=== PATIENT | female | born 1945 | race African-American/Black ===

== ENCOUNTER 2018-11-15 17:53 | Inpatient (IN) | payer MEDICARE ==
[2018-11-15 19:23] LABS: #Eosinphils 0.1 thou/uL (0.0-0.7); #Lymphocytes 1.4 thou/uL (1.20-3.40); #Monocytes 0.9 thou/uL (0.11-0.59); #Neutrophils 9.2 thou/uL (1.40-6.50); %Eosinophils 1.1 % (0.0-10.0); %Lymphocytes 12.1 % (21.0-51.0); %Monocytes 7.7 % (0.0-10.0); Hemoglobin 10.2 g/dL (12.0-16.0); Mean Corpuscular HGB CONC 32.4 g/dL (32.0-36.0); Mean Corpuscular Volume 77.3 fL (78.0-98.0); Platelet Count 241 thou/uL (130-400); RBC Distribution Width 15.4 % (11.5-14.5); Red Blood Cell (RBC) Count 4.06 mill/uL (4.20-5.40); White Blood Cell (WBC) Count 11.6 thou/uL (4.8-10.8)
[2018-11-15] MEDS ORDERED: Ketorolac Tromethamine 30 MG/ML VIAL ONE (19:31)
[2018-11-15] MEDS ORDERED: Fentanyl 100 MCG/2 ML VIAL ONE (19:41)
[2018-11-15 19:45] LABS: ALT (SGPT) Less than 7 U/L (8-55); AST (SGOT) 13 U/L (5-34); Albumin 3.4 g/dL (3.4-4.8); Alkaline Phosphatase 75 U/L (40-150); Anion Gap 16 mmol/L (10-20); BUN (Urea Nitrogen) 49 mg/dL (9.8-20.1); Bilirubin, Total 0.3 mg/dL (0.2-1.2); Calc. Creatinine Clearance 0 mL/min (70-130); Calcium 9.3 mg/dL (7.8-10.44); Carbon Dioxide 21 mmol/L (23-31); Chloride 105 mmol/L (98-107); Estimated GFR-MDRD 23; Globulin 3.4 g/dL (2.4-3.5); Glucose 83 mg/dL (83-110); Potassium 4.7 mmol/L (3.5-5.1); Protein, Total 6.8 g/dL (6.0-8.3); Sodium 137 mmol/L (136-145)
--- NOTE | 2018-11-15 20:41 | CT ---
EXAM: CHEST CT WITHOUT CONTRAST: 11/15/18 HISTORY: Decreased GFR. Left axillary abscess, x1.5 months. COMPARISON: None. FINDINGS: Limited evaluation of the mediastinum due to the lack of IV contrast. No mediastinal mass, lymphaden opathy or hematoma. Heart size is within normal limits. No significant pericardial fluid. There are c oronary calcifications. The visualized aorta is unremarkable. The visualized upper solid abdominal vi scera is unremarkable. Gallbladder is surgically absent. There are nonobstructing calculi in the lef t and right renal pelvis. There is asymmetric edema and skin thickening involving the left breast. There is a multilobulated mi xed attenuation mass in the left axilla measuring 13.4 x 10.0 cm. Attenuation coefficient is 26 Houns field units. Findings may represent an infectious or inflammatory process. However, given axillary di stribution, the possibility of a large metastatic lymph node must be raised in the setting of what ma y be inflammatory breast cancer. Multiple nodules are noted in the left breast parenchyma. Trachea and central bronchi are patent. Scattered emphysematous changes of the lung parenchyma. There is a nodule in the left upper lobe measuring 2.0 x 1.1 cm. There is a nodule in the right lower lobe measuring 1.3 x 1.8 cm. Additional subcentimeter nodules in the left and right lung apex are noted. All these nodules have a solid attenuation and are worrisome for metastases. No lytic or blastic lesions in the osseous structures. 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 Clinical correlat ion is essential. Consider general surgical consultation for punch biopsy of the patient's left breas t. An infectious or inflammatory process cannot be entirely excluded. Correlate clinically. POS: PPP
[2018-11-15] MEDS ORDERED: Piperacillin/Tazobactam 4.5 GM VIAL ONE (21:36)
[2018-11-15] MEDS ORDERED: Piperacillin/Tazobactam 4.5 GM in Sodium Chloride 0.9% 100 ML IVPB SCH (21:45)
[2018-11-15 23:31] VITALS: BMI 27.7
[2018-11-16] MEDS ORDERED: PROVENTIL INHALER 6.7 G (200 INHALATIONS) INH PRN (01:34)
[2018-11-16] MEDS ORDERED: FENTANYL TD SCH (01:45)
[2018-11-16] MEDS: Vancomycin HCl 500 MG in Sodium Chloride 0.9% 100 ML IVPB SCH (02:32)
[2018-11-16] MEDS: Sodium Chloride 0.9% 1,000 ML IV SCH ×3 (03:49→20:38)
[2018-11-16] MEDS: Piperacillin/Tazobactam 2.25 GM in Sodium Chloride 0.9% 100 ML IVPB SCH ×4 (03:49→21:41)
--- NOTE | 2018-11-16 04:01 | HP ---
CHIEF COMPLAINT: Left breast open wound. HISTORY OF PRESENT ILLNESS: This is a 73-year-old female patient with past medical history of hyperlipidemia, hypertension, chronic kidney disease stage 3, came to the hospital after having a nonhealing gradually worsening left breast wound with foul odor, with no clear triggers or alleviating factors. The patient reported that the wound started smaller 3 weeks ago and has been gradually getting worse. The patient has no significant diagnosis. REVIEW OF SYSTEMS: All systems were reviewed and negative except for the findings mentioned above. PAST MEDICAL HISTORY: Positive for the findings mentioned in the HPI. SURGICAL HISTORY: Back surgery x2, appendectomy, cholecystectomy. PSYCHIATRIC HISTORY: No previous psych history. SOCIAL HISTORY: No alcohol, no drugs. The patient smokes on a daily basis for more than 30 years. The patient smokes half a pack per day. ALLERGIES: NO KNOWN DRUG ALLERGIES. FAMILY HISTORY: Reviewed, noncontributory to current presentation. MEDICATIONS: 1. Vitamin D3. 2. Albuterol. 3. Potassium chloride. 4. Trazodone. 5. Fentanyl. 6. Bisoprolol. 7. Hydrochlorothiazide. 8. Omeprazole. 9. Lasix. 10. Lipitor. 11. Clonidine. PHYSICAL EXAMINATION: VITAL SIGNS: On presentation, blood pressure 105/66 with heart rate 88, respiratory rate was 17, temperature 99.8, pain was 10/10, oxygen saturation was 95% on room air. GENERAL APPEARANCE: The patient is alert, oriented, no acute distress. HEENT: Eyes, normal conjunctivae. Moist oral mucosa. Anicteric. NECK: No JVD. RESPIRATORY: Bilateral air entry. No rales. No wheezes. Symmetric expansion. CARDIOVASCULAR: Normal rate. Regular rhythm. No murmurs. No gallop or edema. ABDOMEN: Soft. Normal bowel sounds. MUSCULOSKELETAL: Baseline range of motion and strength. CHEST: The patient has left-sided open nonhealing wound that is being packed with dirty and drainage with foul odor. MUSCULOSKELETAL: Baseline range of motion and strength. SKIN: Warm and intact. No pallor. No rash. No redness except for the findings described above. The capillary perfusion seems to be intact. NEUROLOGIC: No evidence of any new focal weakness. Cranial nerves seem to be intact. PSYCH: The patient is in good mood. No anxiety. Optimal judgment. DIAGNOSTIC DATA: CT was done. Findings were worrisome for inflammatory breast cancer with lung parenchymal metastasis. Clinical correlation is essential. Consider general surgical consultation for punch biopsy of the patient's left breast. Infectious and inflammatory process cannot be entirely excluded. Correlate clinically. LABORATORY DATA: Labs are reviewed. The patient has a white count of 11.6, hemoglobin 10.2, MCV 77.3, platelet count 241. Chemistry; sodium 137, potassium 4.7, chloride 105, carbon dioxide 21, anion gap 16, BUN 49, creatinine 2.49, the previous creatinine was 1.5, GFR 23, glucose 83, lactic acid 1.4, calcium 9.3, total bilirubin 0.3. LFTs were negative, alkaline phosphatase 75. Serum total protein 6.9. ASSESSMENT AND PLAN: The patient will be placed in the hospital with following medical problems: 1. Possible inflammatory breast cancer given lesions seen in the left breast. This is a new diagnosis. The patient has not seen a doctor in the past. We will consult Oncology. The patient most likely will need to be followed with Oncology as outpatient for further management. 2. Acute on chronic kidney failure, unclear etiology. We will hydrate. 3. Possible infection of the breast cancer. The patient has been started on antibiotics. Follow cultures, We will consult Wound Care. We will follow cultures and adjust treatment as needed. 4. Hyperlipidemia. Low-cholesterol diet is advised. Reconcile home medications. 5. Controlled hypertension. Reconcile home medications. 6. Chronic kidney disease. Treatment as above. 7. Deep venous thrombosis prophylaxis. Job ID: [id number] MTDD
[2018-11-16] MEDS: Potassium Chloride 10 MEQ TAB PO SCH (08:15)
[2018-11-16] MEDS: Furosemide 20 MG TAB PO SCH (08:15)
[2018-11-16] MEDS: Atorvastatin Calcium 20 MG TAB PO SCH (08:16)
[2018-11-16] MEDS ORDERED: BISOPROLOL FUMARATE 10 MG PO SCH (09:00)
[2018-11-16] MEDS ORDERED: Vancomycin HCl 1 GM in Premix Bag 1 BAG IVPB SCH (09:00)
[2018-11-16] MEDS ORDERED: Lidocaine 1% w/Epinephrine 1:100K 20 ML VIAL ONE (09:28)
[2018-11-16] MEDS: Hydrochlorothiazide 25 MG TAB PO SCH (11:06)
[2018-11-16] MEDS: cloNIDine 0.1 MG TAB PO SCH ×2 (11:06→20:36)
[2018-11-16] MEDS: Bisoprolol Fumarate/HCTZ 5 mg/6.25 mg Tablet PO SCH (11:06)
--- NOTE | 2018-11-16 11:33 | PDOC.HOSPP ---
- Subjective Encounter Date: 11/16/18 Encounter Time: 11:32 Subjective: called by RN for restarting the pain medications, the patient has been admitted by the hospitalist namita today - Objective Vital Signs & Weight: Vital Signs (12 hours) Temp Pulse Resp BP Pulse Ox 11/16/18 07:20 98.4 F 80 18 103/61 96 11/16/18 04:34 98.3 F 76 20 113/72 92 L Weight Weight 161 lb 7 oz Result Diagrams: 11/15/18 19:12 11/15/18 19:12 ROS - Medication Medications: Active Medications Generic Name Dose Route Start Last Admin Trade Name Freq PRN Reason Stop Dose Admin Atorvastatin Calcium 20 mg 11/16/18 09:00 11/16/18 08:16 Lipitor PO 20 mg QAM MARGOTH Administration Bisoprolol Fumarate/HCTZ 1 tab 11/16/18 09:00 11/16/18 11:06 Ziac 5-6.25 PO Not Given DAILY MARGOTH Cholecalciferol 1,000 units 11/16/18 09:00 11/16/18 08:14 Vitamin D3 PO 1,000 units DAILY MARGOTH Administration Clonidine 0.1 mg 11/16/18 09:00 11/16/18 11:06 Catapres PO Not Given BID MARGOTH Furosemide 20 mg 11/16/18 09:00 11/16/18 08:15 Lasix PO 20 mg DAILY MARGOTH Administration Hydrochlorothiazide 12.5 mg 11/16/18 09:00 11/16/18 11:06 Hydrochlorothiazide PO Not Given DAILY MARGOTH Piperacillin Sod/Tazobactam 100 mls @ 200 mls/hr 11/16/18 04:00 11/16/18 08: 18 Sod 2.25 gm/ Sodium Chloride IVPB 100 mls 0400,1000,1600,2200 MARGOTH Administration Vancomycin HCl 500 mg/ Sodium 100 mls @ 100 mls/hr 11/16/18 03:00 11/16/18 02 :32 Chloride IVPB 100 mls 0300 MARGOTH Administration Sodium Chloride 1,000 mls @ 75 mls/hr 11/16/18 03:00 11/16/18 03:49 Normal Saline 0.9% IV 1,000 mls .[id number] MARGOTH Administration Pantoprazole Sodium 40 mg 11/16/18 09:00 08/24/19 08:15 Protonix PO 40 mg DAILY MARGOTH Administration Potassium Chloride 10 meq 11/16/18 09:00 11/16/18 08:15 Klor-Con 10 PO 10 meq DAILY MARGOTH Administration - Exam NAD, awake alert, ill appearing Neck: supple, symmetric, no JVD, no thyromegaly, no lymphadenopathy, no carotid bruit, JVD Heart: RRR, no murmur, no gallops, no rubs, normal peripheral pulses, irregular , diminshed peripheral pulses, murmur present, II/IV, III/IV Gastrointestinal: soft, non-tender, non-distended, normal bowel sounds, no palpable masses, no hepatomegaly, no splenomegaly, no bruit, no guarding, no rigidity, tender to palpation, distended, diminished bowl sounds, voluntary guarding Extremities: no cyanosis, no clubbing, no edema, 1+ LE edema, 2+ LE edema, clubbing Skin: normal turgor, no lesions, no rashes, tenting Neurological: CN's grossly intact, normal sensation to touch, no weakness, no focal deficits, no new deficit, facial droop, hemiplegia, speech deficit, vision deficit Musculoskeletal: normal tone, normal strength, no muscle wasting, generalized weakness, diffuse muscle atrophy Hosp A/P (1) Breast abscess of female Code(s): N61.1 - ABSCESS OF THE BREAST AND NIPPLE Status: Acute - Plan will restart the pain medication,
--- NOTE | 2018-11-16 12:45 | CON ---
DATE OF CONSULTATION: REASON FOR CONSULTATION: Suspected left breast cancer. HISTORY OF PRESENT ILLNESS: A 73-year-old female with CKD, hypertension, hyperlipidemia, presenting to the hospital with nonhealing left breast wound. She states that this wound started approximately six weeks ago as a small bump and has progressively gotten worse. Has not been healing and has a foul odor. She states that before the six weeks, her breast was completely normal. She complains of pain in the breast, under the arm, and left upper extremity swelling. She had fever and chills a few weeks ago, but this resolved and she denies any shortness of breath, cough, or unintentional weight loss. She has never had a mammogram in the past. She has been evaluated by Dr. Augustine and had a biopsy done today. She has one child and had her daughter at 17 years of age. She thinks she had menopause around age 48. She smokes 3 to 4 cigarettes a day for many years. Does not drink any alcohol. REVIEW OF SYSTEMS: Ten-point review of systems negative except as per HPI. PAST MEDICAL HISTORY: CKD, hypertension, and hyperlipidemia. SURGICAL HISTORY: Cholecystectomy, appendectomy, and back surgery. PSYCHIATRIC HISTORY: None. SOCIAL HISTORY: Three to four cigarettes per day for multiple years. No alcohol. ALLERGIES: NO KNOWN DRUG ALLERGIES. CURRENT MEDICATIONS: Reviewed by me. PHYSICAL EXAMINATION: VITAL SIGNS: Temperature 98.4, pulse 80, respirations 18, saturating 96% on room air, and blood pressure 103/61. GENERAL APPEARANCE: The patient is lying in bed, in no acute distress. HEENT: Normocephalic and atraumatic. NECK: Supple. RESPIRATIONS: Clear to auscultation. CARDIOVASCULAR: Regular rhythm and rate. ABDOMEN: Soft and nondistended. NEUROLOGIC: Cranial nerves 2 through 12 are grossly intact. PSYCHIATRIC: Awake, alert, and oriented x3. EXTREMITIES: Left upper extremity swelling. Arm appears about twice the size of her right arm. BREASTS: Left breast is large and pendulous, and in the left upper outer quadrant, there are a couple of nonhealing wounds and a very large 10 cm plus palpable mass that is fixed. The wounds are malodorous. LABORATORY DATA: White blood cells 11.6, hemoglobin 10.2, platelets 241. Sodium 137, potassium 4.7, BUN 49, creatinine 2.49. IMAGING DATA: CT of the chest without contrast dated November 15, 2018 shows asymmetric edema and skin thickening involving the left breast with multilobulated mixed attenuation mass in the left axilla measuring 13.4 x 10.0 cm. Scattered emphysematous changes of the lung with a left upper lobe nodule, 2 x 1.1 cm and right lower lobe nodule, 1.3 x 1.8 cm with additional subcentimeter nodules in the left and right lung apex, all of which have solid attenuation and are worrisome for metastases. 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 She has multiple lung nodules, which are very suspicious for metastatic disease. The patient has been biopsied by Dr. Augustine and is planned for a MediPort on Sunday. Ideally, she needs further imaging to complete her staging. However, given her chronic kidney disease, she is unable to receive contrast, so we would plan to get a PET scan as soon as she is discharged from the hospital. I suspect she has triple negative breast cancer given the aggressive nature of the disease and this is also more common in Americans. Await final pathology to determine cancer type treatment and plan treatment and further imaging to be done as an outpatient. We will go ahead and check a bone scan while she is inpatient. I agree with Wound Care consult to help manage the left breast. Thank you for this consult. Job ID: [id number]
[2018-11-16] MEDS: traZODone HCl 50 MG TAB PO SCH (20:36)
[2018-11-16] MEDS ORDERED: HYDROcodone/Acetaminophen 5/325 mg Tablet PO SCH (22:00)
[2018-11-17] MEDS ORDERED: HYDROcodone/Acetaminophen 5/325 mg Tablet PO PRN (00:54)
[2018-11-17] MEDS: Vancomycin HCl 500 MG in Sodium Chloride 0.9% 100 ML IVPB SCH (02:19)
[2018-11-17] MEDS: Piperacillin/Tazobactam 2.25 GM in Sodium Chloride 0.9% 100 ML IVPB SCH ×4 (03:28→20:45)
[2018-11-17] MEDS: Sodium Chloride 0.9% 1,000 ML IV SCH (05:12)
[2018-11-17] MEDS: Atorvastatin Calcium 20 MG TAB PO SCH (08:36)
[2018-11-17] MEDS: Potassium Chloride 10 MEQ TAB PO SCH (08:36)
[2018-11-17] MEDS: Furosemide 20 MG TAB PO SCH (08:37)
[2018-11-17] MEDS: Hydrochlorothiazide 25 MG TAB PO SCH (08:37)
[2018-11-17] MEDS: cloNIDine 0.1 MG TAB PO SCH (08:38)
[2018-11-17] MEDS: HYDROcodone/Acetaminophen 5/325 mg Tablet PO PRN ×2 (08:41→17:58)
--- NOTE | 2018-11-17 12:18 | CON ---
DATE OF CONSULTATION: REASON FOR CONSULT: Left breast cancer. HISTORY OF PRESENT ILLNESS: Ms. Mckeon is a 73-year-old woman with a 6-week history of a lump on her left breast. She states that this got progressively larger, and her breast became more swollen. She developed a sore over the skin of her left axilla which has become larger and has a bad odor. She has been trying to take care of this herself at home and has been unable to manage it, so she came to the hospital and was admitted. She has never had a mammogram before and cannot remember the last time she had a clinical breast exam before this admission. CT of the chest showed a large hypoechoic heterogeneous mass in the left axilla. She has asymmetric edema and skin thickening of the left breast and 2 nodules in her lung, one in the left upper lobe and one in the right lower lobe, as well as smaller subcentimeter nodules bilaterally . She does not have any lytic or blastic lesions on the evaluated bones. PAST MEDICAL HISTORY: 1. Chronic kidney disease. 2. Hypertension. 3. Hyperlipidemia. PAST SURGERY HISTORY: 1. Open cholecystectomy. 2. Open appendectomy. 3. Back surgery. No past medical history of abnormal breast exam or biopsy. FAMILY HISTORY: Negative for breast or ovarian cancer. SOCIAL HISTORY: She smokes a few cigarettes a day. Does not drink or use illicit drugs. She denies any known drug allergies. MEDICATIONS: Outpatient medications include: 1. Albuterol inhaler. 2. Atorvastatin. 3. Bisoprolol/hydrochlorothiazide. 4. Vitamin D3. 5. Clonidine. 6. Fentanyl patch. 7. Lasix. 8. Hydrochlorothiazide. 9. Omeprazole. 10. Potassium. 11. Trazodone. These medications have been continued as an inpatient, and she has also been started on Zosyn and vancomycin sliding scale. PHYSICAL EXAMINATION: VITAL SIGNS: The patient has been afebrile with normal vital signs. GENERAL: A healthy-appearing woman, in no acute distress. She is not flushed or toxic in appearance. She is not jaundiced or icteric. HEENT: Unremarkable. NECK: Supple without lymphadenopathy or thyroid nodules. No supraclavicular lymphadenopathy either. HEART: Regular in its rate and rhythm. LUNGS: Clear to auscultation bilaterally. BREASTS: Her right breast is without dominant mass, skin changes, nipple discharge, or palpable axillary lymphadenopathy. The right breast is markedly abnormal, swollen with thickened breast and peau d'orange areas of the skin. There is no erythema, however, she has a large hard mass which is immobile in the left axilla with multiple metastatic nodules in the skin and breakdown of the skin overlying the mass in the axilla. There is necrotic sloughing tissue in this area. On bedside ultrasound, the central part of the mass does not appear to have any flow and is almost anechoic and may represent necrotic or even liquified tumor. There is increased blood flow in the periphery of the mass, however. She has some edema of her left arm consistent with lymphedema. Her right arm is normal. ABDOMEN: Soft, nontender, and nondistended. She does not have hepatosplenomegaly. No palpable masses or hernias. Healed surgical incision. EXTREMITIES: Warm and well perfused. No edema except of the left arm. NEUROLOGIC: No focal deficits. PSYCHIATRIC: Alert, oriented, and appropriate. LABORATORY DATA: White count is mildly elevated at 11, hematocrit 31, and platelets are 241. Electrolytes are unremarkable except for an elevated BUN and creatinine of 49 and 2.49 consistent with the patient's history of chronic renal insufficiency. LFTs are abnormally elevated. IMAGING STUDIES: As per HPI. ASSESSMENT AND PLAN: Neglected breast cancer of the left breast. I suspect this has been ongoing for longer than reported 6-week time frame, that the patient does not do breast self-exam or see a doctor for breast care. I recommended a punch biopsy of the skin and core biopsy of the underlying mass, and the patient was agreeable for this. It was performed as detailed under separate cover. She tolerated the procedure well, and the specimens were sent to pathology for permanent histopathology. Once the pathology report is back, she will be recommended for the appropriate chemotherapy. The patient was initially entirely unwilling to consider chemotherapy. She states that her has throat cancer and the chemotherapy was very hard on him. I explained that different types of chemotherapy are used for different types of cancer, and that many chemotherapeutic regimens for breast cancer are well tolerated. I urged her to discuss her concerns with an oncologist and try to develop a treatment plan that is acceptable to her. I explained that on imaging, it looks like the cancer has likely spread to her lungs. I am unsure if the lesion in her axilla is an axillary tail primary lesion or multiple enlarged lymph nodes. On ultrasound, there is more of an appearance of multiple adjacent large nodules which would be consistent with kalli disease, but we will have to wait for the pathology to come back. The patient seems to understand her situation and is willing to speak with the oncologist about treatment options. I explained that currently, she is not a candidate for surgery due to the advanced disease and lack of normal healthy tissues to heal. All of her questions were answered. Job ID: [id number]
--- NOTE | 2018-11-17 12:35 | PDOC.HOSPP ---
- Subjective Encounter Date: 11/17/18 Encounter Time: 12:33 Subjective: Patient seen and examined. - Objective Vital Signs & Weight: Vital Signs (12 hours) Temp Pulse Resp BP Pulse Ox 11/17/18 08:53 98.3 F 83 18 109/65 96 Weight Admit Weight 161 lb 7 oz Weight 161 lb 7 oz I&O: 11/16/18 11/17/18 11/18/18 06:59 06:59 06:59 Intake Total 2250 Balance 2250 Result Diagrams: 11/15/18 19:12 11/15/18 19:12 ROS - Medication Medications: Active Medications Generic Name Dose Route Start Last Admin Trade Name Freq PRN Reason Stop Dose Admin Hydrocodone Bitart/Acetaminophen 2 tab 11/17/18 00:54 11/17/18 08:41 Henderson 5/325 PO 2 tab Q6H PRN Administration Moderate to Severe Pain (6-10) Atorvastatin Calcium 20 mg 11/16/18 09:00 11/17/18 08:36 Lipitor PO 20 mg QAM MARGOTH Administration Cholecalciferol 1,000 units 11/16/18 09:00 11/17/18 08:36 Vitamin D3 PO 1,000 units DAILY MARGOTH Administration Fentanyl 25 mcg 11/16/18 14:00 11/16/18 12:51 Duragesic TD 25 mcg Q3D MARGOTH Administration Piperacillin Sod/Tazobactam 100 mls @ 200 mls/hr 11/16/18 04:00 11/17/18 08: 38 Sod 2.25 gm/ Sodium Chloride IVPB 100 mls 0400,1000,1600,2200 MARGOTH Administration Vancomycin HCl 500 mg/ Sodium 100 mls @ 100 mls/hr 11/16/18 03:00 11/17/18 02 :19 Chloride IVPB 100 mls 0300 MARGOTH Administration Pantoprazole Sodium 40 mg 11/16/18 09:00 11/17/18 08:37 Protonix PO 40 mg DAILY MARGOTH Administration Potassium Chloride 10 meq 11/16/18 09:00 11/17/18 08:36 Klor-Con 10 PO 10 meq DAILY MARGOTH Administration Sodium Chloride 10 ml 11/16/18 21:00 11/17/18 10:07 Flush - Normal Saline IVF Not Given Q12HR MARGOTH Trazodone HCl 50 mg 11/16/18 21:00 11/16/18 20:36 Desyrel PO 50 mg HS MARGOTH Administration - Exam NAD, awake alert Eye: PERRL, anicteric sclera ENT: normocephalic atraumatic, no oropharyngeal lesions Neck: supple, symmetric, no JVD, no thyromegaly Heart: RRR, no murmur, no gallops, no rubs Respiratory: CTAB, no wheezes, no rales, no ronchi Gastrointestinal: soft, non-tender, non-distended, normal bowel sounds Extremities: no cyanosis, no clubbing, 2+ LE edema Hosp A/P (1) Breast neoplasm Status: Acute (2) CKD (chronic kidney disease) stage 3, GFR 30-59 ml/min Code(s): N18.3 - CHRONIC KIDNEY DISEASE, STAGE 3 (MODERATE) Status: Acute (3) Edema Code(s): R60.9 - EDEMA, UNSPECIFIED Status: Acute (4) Anemia Code(s): D64.9 - ANEMIA, UNSPECIFIED Status: Acute (5) Hyperlipidemia Code(s): E78.5 - HYPERLIPIDEMIA, UNSPECIFIED Status: Acute - Plan - cont abx - biopsy for tmrw - NPO past midnight for possbile med port placement in AM? - pain control - DC beta fabián, HCTZ - DC IVFs as patient has significnat lower extremity edema - will cont with lasix 40mg po daily for now - consult nephrology - hold clonidine if SBP < 120mmHg - case and plan d/w patient at [facility], daughter at bedside, they understand and agree with this plan.
[2018-11-17] MEDS: Bisoprolol Fumarate/HCTZ 5 mg/6.25 mg Tablet PO SCH (13:05)
[2018-11-17 14:55] LABS: Albumin 3.1 g/dL (3.4-4.8); Anion Gap 15 mmol/L (10-20); BUN (Urea Nitrogen) 33 mg/dL (9.8-20.1); BUN/Creatinine Ratio 17.01; Calc. Creatinine Clearance 29 mL/min (70-130); Calcium 8.5 mg/dL (7.8-10.44); Carbon Dioxide 19 mmol/L (23-31); Chloride 109 mmol/L (98-107); Estimated GFR-MDRD 30; Glucose 120 mg/dL (83-110); Phosphorus 3.5 mg/dL (2.3-4.7); Potassium 4.3 mmol/L (3.5-5.1); Sodium 139 mmol/L (136-145)
[2018-11-17 15:00] LABS: Bilirubin Negative (Negative); Blood, Urine Negative (Negative); Clarity Clear (Clear); Glucose, Urine (Dipstick) Normal (Negative); Leukocyte 75 Leu/uL (Negative); Nitrite Negative (Negative); Protein, Urine (Dipstick) Negative (Neg-Trace); RBC/HPF 0-3 HPF (0-3); Squamous Epithelial 0-3 HPF (0-3); Urobilinogen Normal mg/dL (Less than 2)
[2018-11-17 15:19] LABS: Bacteria/HPF Rare-Few HPF (None Seen); Creatinine, Urine 42.98 mg/dL (47-110); Protein, Urine Random Quant Less than 10 mg/dL (1-14); Sodium, Urine 105 mmol/L (Not Available); Urea Nitrogen, Random Urine 244 mg/dl
[2018-11-17 15:21] LABS: Urine Culture Reflex Yes Yes
--- NOTE | 2018-11-17 15:31 | CON ---
DATE OF CONSULTATION: 11/17/2018 REASON FOR CONSULTATION: Acute kidney injury on chronic kidney disease 3. REQUESTING PHYSICIAN: Gene Mohamud DO. HISTORY OF PRESENT ILLNESS: A 73-year-old female with known history of hypertension and CKD, admitted for evaluation and treatment of nonhealing left breast ulcer with foul odor. The patient reportedly developed some nodules on the left lateral breast about 6 weeks ago which later broke down following an ulcer with foul smelling odor which is nonhealing. The patient has seen a PCP and was asked to come to the hospital. Nephrology consult was requested due to elevated creatinine. The patient admitted to bilateral leg edema, for which she is taking some diuretics. She denied dysuria, hematuria, nausea, vomiting, chest pain, palpitations, headache, dizziness, focal weakness, or change in bowel habit. PAST MEDICAL HISTORY: 1. Hypertension. 2. Hyperlipidemia. 3. Chronic bilateral leg edema. 4. CKD stage 3. PAST SURGICAL HISTORY: 1. Cholecystectomy. 2. Appendectomy. 3. Back surgery x2. FAMILY HISTORY: Noncontributory. The patient has no history of breast or ovarian cancer in family. SOCIAL HISTORY: The patient lives with daughter. Smokes 3 cigarettes per day for a long period. Denied alcohol or recreational drug use. ALLERGIES: NO KNOWN DRUG ALLERGIES REPORTED. HOME MEDICATIONS: 1. Albuterol HFA 1 inhalation q.4 p.r.n. for shortness of breath. 2. Lipitor 20 mg daily. 3. Bisoprolol fumarate 10 mg p.o. daily. 4. Bisoprolol/hydrochlorothiazide 5/6.25 one tablet p.o. daily. 5. Cholecalciferol 1000 units p.o. daily. 6. Clonidine 0.1 mg p.o. b.i.d. 7. Fentanyl patch 25 mcg transdermal patch every 3 days. 8. Lasix 20 mg p.o. daily. 9. Hydrochlorothiazide 12.5 mg p.o. daily. 10. Omeprazole 20 mg p.o. daily. 11. Potassium chloride 10 mEq p.o. daily. 12. Trazodone 50 mg p.o. daily at bedtime. REVIEW OF SYSTEMS: Twelve-point review of system performed was negative other than pertinent positives and negatives included in the History of Present Illness. PHYSICAL EXAMINATION: VITAL SIGNS: Temperature 98.3, pulse 83, respiratory rate 18, SpO2 of 96% on room air, blood pressure is 109/65. GENERAL: Elderly female, in no obvious distress. Afebrile. Anicteric. Acyanotic. HEENT: Normocephalic, atraumatic. Oral mucosa is moist. NECK: Supple with good range of motion. No obvious masses appreciated. CARDIOVASCULAR: Regular rhythm and rate with normal heart sounds 1 and 2. No obvious murmur was appreciated. RESPIRATORY: Fair air entry bilateral with few bibasilar crackles posteriorly. No obvious rhonchi or use of accessory muscles appreciated. CHEST: Left breast is enlarged and firm, especially at the left upper lateral where there are multiple nodules with some skin breakdown. Large ulcer around the armpit with necrotic tissue and foul odor noted. GI: Full, soft, nontender, nondistended with normal bowel sounds. EXTREMITIES: Left upper limb is globally swollen. Bilateral leg edema noted. No erythema was appreciated. HEAD OF ENGLISH: Conscious, alert, oriented x3 with appropriate mental status. Cranial nerves 2 through 12 are grossly intact. The patient moves all extremities. DIAGNOSTIC DATA: On presentation on November 15, the patient had CBC showing WBC count of 11.6, hemoglobin of 10.2, MCV of 77.3, platelet count of 241. CMP on November 15 showed sodium 137, potassium 4.7, chloride 105, CO2 of 21, BUN 49, creatinine 2.49, glucose 83, calcium 9.3, total bilirubin 0.3. AST 13, ALT less than 7, alkaline phosphatase 75, total protein 6.8, albumin 3.4, globulin 3.4. Review of medical records showed that the patient had creatinine of 1.50 on January 24, 2017, and there have been no available records between then until now. 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 Asymmetric edema and skin thickening involving the left breast as well as multilobulated mixed attenuation mass in the left axilla measuring 13 x 10 cm were also noted. Trachea and central bronchi are noted to be patent with some scattered emphysematous changes of the lung parenchyma. Also, there was a nodule in the left upper lobe measuring 2 x 1.0 cm as well as a node in the right lower lobe measuring 1.3 x 1.8. There was no lytic or blastic lesion in the osseous structures. ASSESSMENT: 1. Renal insufficiency: Acute kidney injury on chronic kidney disease 3 versus chronic kidney disease 3 with progression. The patient had creatinine of 1.5 in 2017, but there has been no available data since then. Creatinine on presentation was 2.49. Of note, the patient has been on diuretics for bilateral leg edema, was started on IV fluid, but there has been no repeat renal function. 2. Presumed metastatic breast cancer. 3. Left upper lateral breast/axillary malodorous wound. This is thought to be due to fungating mass with necrosis. 4. Lung metastasis. 5. Left upper limb edema: Most likely due to lymphedema from obstruction related to axillary lymphadenopathy. Deep venous thrombosis is a concern. 6. Bilateral leg edema: Etiology is unclear. Differentials include diastolic heart failure, venous insufficiency, as well as deep vein thrombosis giving history of metastatic disease. 7. Hypertension: Blood pressure is currently on the soft side. 8. Hyperlipidemia. 9. Chronic obstructive pulmonary disease with no acute exacerbation: CT showed emphysematous changes and the patient is a chronic smoker. 10. Tobacco abuse disorder. PLAN: 1. We will discontinue clonidine and diuretics given soft blood pressure. 2. We will continue gentle IV hydration with normal saline at 50 mL/h. 3. We will get repeat renal function as well as urinalysis with urine electrolytes and protein. 4. We will also get renal ultrasound. 5. We will also get Doppler of left upper extremities to rule in or rule out DVT. 6. We will, however, restart bisoprolol since the patient is on chronic beta fabián and some surgical intervention is contemplated. 7. We will also get medical record from the primary care physician to see if there has been any BMP since 2017. 8. Further recommendation to follow depending on review of other diagnostic test and hospital course. Many thanks for involving us in the care of this patient. We will follow along with you. Job ID: [id number]
--- NOTE | 2018-11-17 16:16 | ULT ---
RENAL ULTRASOUND: HISTORY: Acute kidney insufficiency upon chronic kidney disease. COMPARISON: None. TECHNIQUE: Sagittal and transverse imaging of the kidneys is performed. FINDINGS: Right kidney: Mild renal cortical thinning. No hydronephrosis. The right kidney measures 5.6 x 4.2 x 7.4 cm. Left kidney: No hydronephrosis. Normal cortical echotexture. Mild renal cortical thinning. The le ft kidney measures 5 x 3.9 x 7.4 cm. The urinary bladder is unremarkable. IMPRESSION: No hydronephrosis. POS: OFF
--- NOTE | 2018-11-17 16:25 | ULT ---
LEFT LOWER EXTREMITY VENOUS ULTRASOUND WITH DOPPLER: HISTORY: Evaluate for thrombus. Left arm swelling. COMPARISON: None. TECHNIQUE: Forte-scale, color-flow, and Doppler imaging with spectral wave-form analysis was performed of the lef t upper extremity venous system. FINDINGS: The left internal jugular vein is patent. The left subclavian vein is patent. The left axillary vein compresses and is patent. The brachial vein does not appear to compress. The re does appear to be some flow present, suggesting partial thrombosis. There is partial compression of the cephalic vein, along with partial flow. Partial thrombosis is rebolledo spected. The radial vein appears to be patent. There is lack of compressibility and lack of flow in the ulnar vein, suggesting complete thrombosis. Soft tissue swelling is noted. IMPRESSION: 1. Partial and complete thrombosis involving the left upper extremity venous system, as described ab ove. 2. Associated soft tissue swelling. POS: OFF
--- NOTE | 2018-11-17 18:58 | PDOC.GSPN ---
Surgery Progress Note: Subj - Subjective Narrative: Patient with neglected breast cancer and large fungating mass. Wound care has placed a dressing which can be left in place for 3 days. This should help the patient's in terms of managing her wound. I will ask case management to help her arrange for wound care as an outpatient. Patient has had no pain or drainage from her biopsy site. We're waiting pathology but I'm hoping it will be back tomorrow. I would like to place a Mediport so she can get started on chemotherapy as soon as possible. I discussed the inherent risks of Mediport placement and patient would like to proceed. She had a left upper extremity ultrasound today which did show some partial thrombosis of the deep venous brachial and ulnar system although the axillary vein was patent and compressible. She may need chronic anticoagulation for this so it would be good to get her Mediport in before this is started. Surgery Progress Note: Obj - Vital signs Vital signs: Vital Signs - Most Recent Temp Pulse Resp BP Pulse Ox 98.3 F 83 18 109/65 96 11/17/18 08:53 11/17/18 08:53 11/17/18 08:53 11/17/18 08:53 11/17/18 08:53 Surgery Progress Note: Results - Labs Result Diagrams: 11/15/18 19:12 11/17/18 14:29 Lab results: Laboratory Results - last 24 hr 11/17/18 11/17/18 11/17/18 14:29 14:39 14:39 Sodium 139 Potassium 4.3 Chloride 109 H Carbon Dioxide 19 L Anion Gap 15 BUN 33 H Creatinine 1.94 H Estimated GFR (MDRD) 30 BUN/Creatinine Ratio 17.01 Glucose 120 H Calcium 8.5 Phosphorus 3.5 Albumin 3.1 L Urine Color Colorless Urine Clarity Clear Urine pH 5.0 Ur Specific [place] 1.010 Urine Protein Negative Urine Glucose (UA) Normal Urine Ketones Negative Urine Blood Negative Urine Nitrite Negative Urine Bilirubin Negative Urine Urobilinogen Normal Ur Leukocyte Esterase 75 A Urine RBC 0-3 Urine WBC 7-10 A Ur Squamous Epith Cells 0-3 Urine Bacteria Rare-Few Hyaline Casts 0-3 Urine Culture Reflexed Yes A U Random Total Protein Less than 10 Urine Creatinine 42.98 L Urine Sodium 105 Urine Urea Nitrogen 244
[2018-11-17] MEDS: traZODone HCl 50 MG TAB PO SCH (20:44)
[2018-11-17] MEDS: Sodium Bicarbonate Tab 325 MG TAB PO SCH (20:44)
[2018-11-17] MEDS ORDERED: cloNIDine 0.1 MG TAB PO SCH (21:00)
[2018-11-18] MEDS: Vancomycin HCl 500 MG in Sodium Chloride 0.9% 100 ML IVPB SCH (03:08)
[2018-11-18] MEDS: Piperacillin/Tazobactam 2.25 GM in Sodium Chloride 0.9% 100 ML IVPB SCH ×4 (03:09→20:32)
[2018-11-18 03:28] LABS: Albumin 2.8 g/dL (3.4-4.8); Anion Gap 15 mmol/L (10-20); BUN (Urea Nitrogen) 30 mg/dL (9.8-20.1); BUN/Creatinine Ratio 17.05; Calc. Creatinine Clearance 32 mL/min (70-130); Calcium 8.3 mg/dL (7.8-10.44); Carbon Dioxide 18 mmol/L (23-31); Chloride 110 mmol/L (98-107); Estimated GFR-MDRD 34; Glucose 101 mg/dL (83-110); Phosphorus 3.8 mg/dL (2.3-4.7); Potassium 4.1 mmol/L (3.5-5.1); Sodium 139 mmol/L (136-145)
[2018-11-18] MEDS ORDERED: Vancomycin HCl 500 MG in Sodium Chloride 0.9% 100 ML IVPB SCH (04:45)
[2018-11-18] MEDS: Sodium Bicarbonate Tab 325 MG TAB PO SCH ×2 (08:29→20:30)
[2018-11-18] MEDS: Bisoprolol Fumarate 5 MG TAB PO SCH (08:29)
[2018-11-18] MEDS: Potassium Chloride 10 MEQ TAB PO SCH (08:30)
[2018-11-18] MEDS: Atorvastatin Calcium 20 MG TAB PO SCH (08:30)
[2018-11-18] MEDS ORDERED: Ondansetron PF 4 MG/2 ML Vial IVP PRN (08:50)
[2018-11-18] MEDS ORDERED: Furosemide 40 MG TAB PO SCH (09:00)
[2018-11-18] MEDS ORDERED: Ondansetron PF 4 MG/2 ML Vial IVP SCH (09:00)
--- NOTE | 2018-11-18 12:47 | NM ---
WHOLE BODY BONE SCAN: HISTORY: Metastatic breast cancer. RADIOPHARMACEUTICAL: 33 mCi Technetium 99m-MDP administered intravenously. FINDINGS: Increased uptake in the lower lumbar spine is consistent with postop change. Increased uptake in the shoulders, acromioclavicular joints, wrists, knees, ankles, and feet are consistent with degenerativ e changes. No other abnormalities or tracer localization are seen to suggest metastatic disease. Tr acer excretion through the kidneys is within normal limits. IMPRESSION: No scintigraphic evidence of osseous metastatic disease. POS: TPC
--- NOTE | 2018-11-18 16:24 | PDOC.GSPN ---
Surgery Progress Note: Subj - Subjective Narrative: Patient is feeling all right. Pathology has stated that her result will not be back until tomorrow so I have postponed her Mediport until tomorrow afternoon. She can have clear liquids after midnight and then nothing by mouth after about 10 AM. Surgery Progress Note: Obj - Vital signs Vital signs: Vital Signs - Most Recent Temp Pulse Resp BP Pulse Ox 98.8 F 68 16 118/67 97 11/18/18 16:12 11/18/18 16:12 11/18/18 16:12 11/18/18 16:12 11/18/18 16:12 Surgery Progress Note: Results - Labs Result Diagrams: 11/15/18 19:12 11/18/18 02:54
[2018-11-18] MEDS: HYDROcodone/Acetaminophen 5/325 mg Tablet PO PRN (16:43)
--- NOTE | 2018-11-18 17:25 | PDOC.HOSPP ---
- Subjective Encounter Date: 11/18/18 Encounter Time: 17:15 Subjective: f/u for inflammatory breast CA with cellulitis and LUE venous thrombosis with edema. Plan for Mediport placement in am. Currently receiving Zosyn/Vancomycin. Had nausea earlier today but improved currently. - Objective Vital Signs & Weight: Vital Signs (12 hours) Temp Pulse Resp BP Pulse Ox 11/18/18 16:12 98.8 F 68 16 118/67 97 11/18/18 10:50 98.3 F 86 16 130/66 96 11/18/18 08:00 95 11/18/18 07:21 98.3 F 88 18 124/73 95 Weight Admit Weight 161 lb 7 oz Weight 161 lb 7 oz I&O: 11/17/18 11/18/18 11/19/18 06:59 06:59 06:59 Intake Total 2250 1100 1100 Balance 2250 1100 1100 Result Diagrams: 11/15/18 19:12 11/18/18 02:54 Additional Labs: Microbiology 11/17/18 15:21 Urine clean catch Urine Culture - Preliminary NO GROWTH AT 24 HOURS 11/15/18 19:12 Venous blood - Left Arm Blood Culture - Preliminary NO GROWTH AT 48 HOURS 11/15/18 19:06 Venous blood - Right Arm Blood Culture - Preliminary NO GROWTH AT 48 HOURS Laboratory Tests 11/15/18 11/17/18 11/18/18 19:12 14:29 02:54 Creatinine 2.49 H 1.94 H Vancomycin Trough 7.0 Radiology Reviewed by me: Yes (LUE sono - partial thrombosis ulna, brachial and cephalic veins) ROS - Medication Medications: Active Medications Generic Name Dose Route Start Last Admin Trade Name Freq PRN Reason Stop Dose Admin Hydrocodone Bitart/Acetaminophen 2 tab 11/17/18 00:54 11/18/18 16:43 [place] 5/325 PO 2 tab Q6H PRN Administration Moderate to Severe Pain (6-10) Atorvastatin Calcium 20 mg 11/16/18 09:00 11/18/18 08:30 Lipitor PO 20 mg QAM MARGOTH Administration Bisoprolol Fumarate 5 mg 11/18/18 09:00 11/18/18 08:29 Zebeta PO 5 mg DAILY MARGOTH Administration Cholecalciferol 1,000 units 11/16/18 09:00 11/18/18 08:29 Vitamin D3 PO 1,000 units DAILY MARGOTH Administration Fentanyl 25 mcg 11/16/18 14:00 11/16/18 12:51 Duragesic TD 25 mcg Q3D MARGOTH Administration Piperacillin Sod/Tazobactam 100 mls @ 200 mls/hr 11/16/18 04:00 11/18/18 16: 44 Sod 2.25 gm/ Sodium Chloride IVPB 100 mls 0400,1000,1600,2200 MARGOTH Administration Pantoprazole Sodium 40 mg 11/16/18 09:00 11/18/18 08:30 Protonix PO 40 mg DAILY MARGOTH Administration Potassium Chloride 10 meq 11/16/18 09:00 11/18/18 08:30 Klor-Con 10 PO 10 meq DAILY MARGOTH Administration Sodium Bicarbonate 650 mg 11/17/18 21:00 11/18/18 08:29 Bicarbonate, Sodium PO 650 mg BID MARGOTH Administration Sodium Chloride 10 ml 11/16/18 21:00 11/18/18 08:30 Flush - Normal Saline IVF 10 ml Q12HR MARGOTH Administration Trazodone HCl 50 mg 11/16/18 21:00 11/17/18 20:44 Desyrel PO 50 mg HS MARGOTH Administration - Exam NAD, awake alert Eye: PERRL, anicteric sclera ENT: normocephalic atraumatic, no oropharyngeal lesions Neck: supple, symmetric, no JVD, no thyromegaly Heart: RRR, no murmur, no gallops, no rubs, normal peripheral pulses Respiratory: CTAB, no wheezes, no rales, no ronchi Gastrointestinal: soft, non-tender, non-distended, normal bowel sounds Extremities: no clubbing Extremeties - other findings: LUE with edema Neurological: CN's grossly intact, no new deficit Musculoskeletal: normal tone, normal strength Psychiatric: normal affect, normal behavior, A&O x 3 Hosp A/P (1) Breast neoplasm Status: Acute Plan: Left breast inflammatory malignancy, bx pending, Med Oncology for outpt planning /coordination of care, continue Zosyn/Vancomycin (2) Pbjci-np-qolalze kidney injury Code(s): N17.9 - ACUTE KIDNEY FAILURE, UNSPECIFIED; N18.9 - CHRONIC KIDNEY DISEASE, UNSPECIFIED Status: Acute Plan: Improved with IVF's, avoid nephrotoxic meds and limit contrast exposure (3) Acute thrombosis of left upper extremity Code(s): I82.602 - ACUTE EMBOLISM AND THOMBOS UNSP VEINS OF L UP EXTREM Status : Acute Plan: Secondary to #1 and hypercoagulable state, plan for DOAC's for d/c (4) Microcytic anemia Code(s): D50.9 - IRON DEFICIENCY ANEMIA, UNSPECIFIED Status: Chronic Plan: Likely multifactorial, check Iron studies, serial H/H monitoring, no active bleeding currently - Plan plan discussed w/ family, continue antibiotics, social human services assistants, out of bed/ ambulate, DVT proph w/SCDs Stable currently Await final breast bx results Plan for Mediport placement in 24h Continue Vanc/Zosyn Plan for DOAC's on d/c Palliative care consult AM lab: BMP, CBC, Iron, Ferritin, Stool guaiac, Retic count
--- NOTE | 2018-11-18 19:04 | PRG ---
DATE OF SERVICE: 11/18/2018 SERVICE: Nephrology. SUBJECTIVE: The patient is a 73-year-old female, admitted due to left upper breast nodules with ulcerations. Nephrology service is following the patient for acute kidney injury superimposed on chronic kidney disease stage 3. The patient reports feeling better. Tolerating oral intake. No nausea, vomiting, chest pain, or shortness of breath. OBJECTIVE: VITAL SIGNS: Temperature 98.8, pulse 68, respiratory rate 16, SpO2 of 97% on room air, blood pressure is 118/67. GENERAL: Elderly female, in no obvious distress. Afebrile. Anicteric. Acyanotic. HEENT: Normocephalic, atraumatic. Oral mucosa is moist. CARDIOVASCULAR: Regular rhythm and rate with normal heart sounds 1 and 2. RESPIRATORY: Fair air entry bilateral with few bibasilar crackles posteriorly. No respiratory distress appreciated. GI: Full, soft, nontender, nondistended with normal bowel sounds. EXTREMITIES: Pyrj-jy-sodecrrt left upper limb edema noted. Mild bilateral leg edema noted as well. CRAPS DEALER: Conscious, alert, oriented x3 with appropriate mental status. DIAGNOSTIC DATA: Renal function panel today showed sodium 139, potassium 4.1, chloride 110, CO2 of 18, BUN 30, creatinine 1.76, glucose 101, calcium 8.3, phosphorus 3.8, albumin 2.8. Doppler of left upper extremity showed partial and complete thrombosis involving the left upper extremity venous system. Thrombosis involves the brachial vein as well as the radial vein and cephalic vein. Renal ultrasound showed small kidneys with mild renal cortical thinning, but no hydronephrosis. ASSESSMENT: 1. Acute kidney superimposed on chronic kidney disease stage 3. Creatinine is trending down. Creatinine today is 1.7, which is close to baseline. 2. Chronic kidney disease stage 3: Thought to be related to hypertension. 3. Hypertension: Control is acceptable. 4. Metabolic acidosis: Due to chronic kidney disease. 5. Microcytic anemia: Most likely due to anemia of chronic kidney disease with or without contribution from iron-deficiency anemia. 6. Presumed metastatic breast cancer. PLAN: 1. Increase sodium bicarbonate to 650 t.i.d. 2. Get iron chemistry in the morning. 3. We will consider diuretic therapy once renal function gets back to baseline. 4. Treatment of left upper extremity DVT as per primary attending. 5. Discontinue potassium supplementation. 6. Further treatment as per primary attending and General surgery as well as Oncology. Job ID: [id number]
[2018-11-18] MEDS: traZODone HCl 50 MG TAB PO SCH (20:30)
[2018-11-19] MEDS: Piperacillin/Tazobactam 2.25 GM in Sodium Chloride 0.9% 100 ML IVPB SCH ×4 (03:14→22:23)
[2018-11-19] MEDS: Vancomycin HCl 1 GM in Premix Bag 1 BAG IVPB SCH (03:14)
[2018-11-19 04:08] LABS: Cancer Antigen (CA 27.29) 246.7 U/mL (0.0-38.6)
[2018-11-19 06:08] LABS: Reticulocyte Count 1.8 % (0.5-1.5)
[2018-11-19 06:28] LABS: Iron 35 ug/dL (50-170); Iron Binding Capacity, Total 210 mcg/dL (265-497)
[2018-11-19] MEDS: HYDROcodone/Acetaminophen 5/325 mg Tablet PO PRN (08:34)
[2018-11-19] MEDS: Bisoprolol Fumarate 5 MG TAB PO SCH (08:35)
[2018-11-19] MEDS: Sodium Bicarbonate Tab 325 MG TAB PO SCH ×3 (08:36→22:22)
[2018-11-19] MEDS: Atorvastatin Calcium 20 MG TAB PO SCH (08:36)
[2018-11-19] MEDS ORDERED: Fentanyl 100 MCG/2 ML VIAL ONE (16:47)
[2018-11-19] MEDS ORDERED: PROPOFOL 40 ML ONE (16:47)
[2018-11-19] MEDS ORDERED: Lidocaine 2% PF 5 ML VIAL ONE (16:51)
[2018-11-19] MEDS ORDERED: Sodium Chloride 0.9% 0 ML ONE (16:51)
[2018-11-19] MEDS ORDERED: Bupivacaine/Epinephrine 0.25% 30 ML VIAL ONE (16:51)
[2018-11-19] MEDS ORDERED: PHENYLEPHRINE-NS 100 MCG/ML 10 ML SYRINGE ONE (17:12)
[2018-11-19] MEDS ORDERED: Lidocaine 1% PF 5 ML VIAL ONE (17:12)
[2018-11-19] MEDS ORDERED: PROPOFOL 200 MG/20 ML VIAL ONE (17:12)
[2018-11-19] MEDS ORDERED: Ondansetron PF 4 MG/2 ML Vial ONE (17:12)
--- NOTE | 2018-11-19 17:13 | PRG ---
DATE OF SERVICE: 11/19/2018 SERVICE: Nephrology. SUBJECTIVE: A 73-year-old female with presumed metastatic breast cancer, being followed up for [place] on CKD 3. No new problem. The patient is for Port-A-Cath placement today. Denied nausea and vomiting. OBJECTIVE: VITALS: Temperature 98.2, pulse 76, respiratory rate 20, SpO2 of 98% on room air, blood pressure is 131/65. GENERAL: Elderly female, in no obvious distress. Afebrile. Anicteric. HEENT: Normocephalic, atraumatic. Oral mucosa is moist. CARDIOVASCULAR: Regular rhythm and rate with normal heart sounds 1 and 2. RESPIRATORY: Good air entry bilaterally with few transmitted sounds. No obvious crackle or rhonchi was appreciated. GI: Full. Soft. Nontender. Nondistended with normal bowel sounds. EXTREMITIES: Mild to moderate bilateral leg edema. Left upper limb global edema with dressing on the axillary through lateral chest area noted. LINING IRONER: Conscious, alert, oriented x3 with appropriate mental status. DIAGNOSTIC DATA: Anemia panel today showed iron 35, TIBC 210, ferritin 298.4. ASSESSMENT: 1. Acute kidney injury superimposed on chronic kidney disease stage 3. 2. Chronic kidney disease stage 3. 3. Hypertension. 4. Metabolic acidosis. 5. Anemia of chronic kidney disease. 6. Presumed metastatic breast cancer. PLAN: 1. Continue sodium bicarb. 2. Continue to hold nephrotoxic agent including diuretics. 3. Recommend treatment of DVT of left upper extremity. 4. Get repeat renal function and CBC in the morning. Job ID: [id number]
[2018-11-19] MEDS ORDERED: Promethazine HCl 25 MG/ML VIAL IM PRN (18:16)
[2018-11-19] MEDS ORDERED: Promethazine HCl 25 MG/ML VIAL SLOW IVP PRN (18:16)
[2018-11-19] MEDS ORDERED: PACU-Morphine 4MG/ML VIAL SLOW IVP PRN (18:16)
--- NOTE | 2018-11-19 18:29 | PDOC.HOSPP ---
- Subjective Encounter Date: 11/19/18 Encounter Time: 18:20 Subjective: f/u for L inflammatory breast CA pending final bx results. s/p Mediport placement. - Objective Vital Signs & Weight: Vital Signs (12 hours) Temp Pulse Resp BP BP Pulse Ox 11/19/18 15:45 98.1 F 79 18 162/74 H 98 11/19/18 11:15 98.2 F 76 20 131/65 98 11/19/18 08:00 98 11/19/18 07:27 98.3 F 82 18 135/77 98 Weight Admit Weight 161 lb 7 oz Weight 161 lb 7 oz I&O: 11/18/18 11/19/18 11/20/18 06:59 06:59 06:59 Intake Total 1100 1400 300 Balance 1100 1400 300 Result Diagrams: 11/15/18 19:12 11/18/18 02:54 Additional Labs: Microbiology 11/17/18 15:21 Urine clean catch Urine Culture - Preliminary NO GROWTH AT 24 HOURS 11/15/18 19:12 Venous blood - Left Arm Blood Culture - Preliminary NO GROWTH AT 48 HOURS 11/15/18 19:06 Venous blood - Right Arm Blood Culture - Preliminary NO GROWTH AT 48 HOURS Laboratory Tests 11/15/18 11/17/18 11/18/18 19:12 14:29 02:54 Creatinine 2.49 H 1.94 H Vancomycin Trough 7.0 Hospitalist ROS - Medication Medications: Active Medications Generic Name Dose Route Start Last Admin Trade Name Freq PRN Reason Stop Dose Admin Hydrocodone Bitart/Acetaminophen 2 tab 11/17/18 00:54 11/19/18 08:34 [place] 5/325 PO 2 tab Q6H PRN Administration Moderate to Severe Pain (6-10) Atorvastatin Calcium 20 mg 11/16/18 09:00 11/19/18 08:36 Lipitor PO 20 mg QAM MARGOTH Administration Bisoprolol Fumarate 5 mg 11/18/18 09:00 11/19/18 08:35 Zebeta PO 5 mg DAILY MARGOTH Administration Cholecalciferol 1,000 units 11/16/18 09:00 11/19/18 08:35 Vitamin D3 PO 1,000 units DAILY MARGOTH Administration Fentanyl 25 mcg 11/16/18 14:00 11/19/18 14:59 Duragesic TD 25 mcg Q3D MARGOTH Administration Piperacillin Sod/Tazobactam 100 mls @ 200 mls/hr 11/16/18 04:00 11/19/18 15: 07 Sod 2.25 gm/ Sodium Chloride IVPB 100 mls 0400,1000,1600,2200 MARGOTH Administration Vancomycin HCl 1 gm/ Device 200 mls @ 200 mls/hr 11/19/18 03:00 11/19/18 03: 14 IVPB 200 mls Q24HR@0300 MARGOTH Administration Pantoprazole Sodium 40 mg 11/16/18 09:00 11/19/18 08:36 Protonix PO 40 mg DAILY MARGOTH Administration Sodium Bicarbonate 650 mg 11/18/18 21:00 11/19/18 15:01 Bicarbonate, Sodium PO 650 mg TID MARGOTH Administration Sodium Chloride 10 ml 11/16/18 21:00 11/19/18 08:36 Flush - Normal Saline IVF Not Given Q12HR MARGOTH Trazodone HCl 50 mg 11/16/18 21:00 11/18/18 20:30 Desyrel PO 50 mg HS MARGOTH Administration - Exam General Appearance: NAD, awake alert Eye: PERRL, anicteric sclera ENT: normocephalic atraumatic, no oropharyngeal lesions Neck: supple, symmetric, no JVD, no thyromegaly, no lymphadenopathy Heart: RRR, no murmur, no gallops, no rubs, normal peripheral pulses Respiratory: CTAB, no wheezes, no rales, no ronchi Gastrointestinal: soft, non-tender, non-distended, normal bowel sounds Extremeties - other findings: LUE with global edema Neurological: CN's grossly intact, no new deficit Musculoskeletal: normal tone Psychiatric: normal affect, normal behavior, A&O x 3 Hosp A/P (1) Breast neoplasm Status: Acute Plan: Invasive carcinoma with lymphagitic spread, plan for chemotherapy options (2) [id number] kidney injury Code(s): N17.9 - ACUTE KIDNEY FAILURE, UNSPECIFIED; N18.9 - CHRONIC KIDNEY DISEASE, UNSPECIFIED Status: Acute Plan: Improved, avoid nephrotoxic meds and limit contrast exposure (3) Acute thrombosis of left upper extremity Code(s): I82.602 - ACUTE EMBOLISM AND THOMBOS UNSP VEINS OF L UP EXTREM Status : Acute Plan: Plan for OAC for d/c (4) Microcytic anemia Code(s): D50.9 - IRON DEFICIENCY ANEMIA, UNSPECIFIED Status: Chronic Plan: Stable currently, serial H/H monitoring, start Feosol 325mg BID - Plan continue antibiotics, director social welfare, out of bed/ambulate Stable currently Medical oncology f/u as outpt Mediport placement Continue Vanc/Zosyn Plan for DOAC's on d/c Palliative care consult AM lab: BMP, CBC
--- NOTE | 2018-11-19 19:06 | RAD ---
XR Chest 1 View History: MediPort placement Comparison: Chest November 15, 2018 Findings: Unchanged left upper lobe nodule. Port catheter tip sits at the inferior SVC without pneumo thorax. Abnormal asymmetric soft tissue density of the left hemithorax. Impression: Uncomplicated placement port catheter.
[2018-11-19] MEDS: traZODone HCl 50 MG TAB PO SCH (22:22)
[2018-11-20 02:32] LABS: #Eosinphils 0.2 thou/uL (0.0-0.7); #Monocytes 0.7 thou/uL (0.11-0.59); #Neutrophils 6.2 thou/uL (1.40-6.50); %Basophils 0.3 % (0.0-1.0); %Eosinophils 2.3 % (0.0-10.0); %Lymphocytes 11.9 % (21.0-51.0); %Monocytes 8.4 % (0.0-10.0); %Neutrophils 77.2 % (42.0-75.0); Hemoglobin 8.9 g/dL (12.0-16.0); Mean Corpuscular Hemoglobin 25.1 pg (27.0-31.0); Mean Corpuscular Volume 78.3 fL (78.0-98.0); Mean Platelet Volume 8.2 fL (7.4-10.4); Platelet Count 212 thou/uL (130-400); RBC Distribution Width 15.6 % (11.5-14.5); Red Blood Cell (RBC) Count 3.53 mill/uL (4.20-5.40)
[2018-11-20 02:50] LABS: Vancomycin, Trough 17.1 ug/mL
[2018-11-20 02:58] LABS: Albumin 2.7 g/dL (3.4-4.8); Anion Gap 14 mmol/L (10-20); BUN (Urea Nitrogen) 19 mg/dL (9.8-20.1); Calc. Creatinine Clearance 39 mL/min (70-130); Calcium 8.3 mg/dL (7.8-10.44); Carbon Dioxide 22 mmol/L (23-31); Chloride 110 mmol/L (98-107); Estimated GFR-MDRD 43; Glucose 68 mg/dL (83-110); Potassium 3.7 mmol/L (3.5-5.1); Sodium 142 mmol/L (136-145)
[2018-11-20] MEDS: Vancomycin HCl 1 GM in Premix Bag 1 BAG IVPB SCH (03:07)
[2018-11-20] MEDS: Piperacillin/Tazobactam 2.25 GM in Sodium Chloride 0.9% 100 ML IVPB SCH ×2 (03:08→11:56)
[2018-11-20] MEDS ORDERED: Iron Sucrose Complex 200 MG in Sodium Chloride 0.9% 250 ML 250 ML IVPB SCH (06:45)
[2018-11-20] MEDS ORDERED: Ferrous Sulfate 325 MG TAB PO SCH (08:00)
[2018-11-20] MEDS: Atorvastatin Calcium 20 MG TAB PO SCH (09:11)
[2018-11-20] MEDS: Bisoprolol Fumarate 5 MG TAB PO SCH (09:11)
[2018-11-20] MEDS: Sodium Bicarbonate Tab 325 MG TAB PO SCH ×2 (09:11→16:11)
--- NOTE | 2018-11-20 09:59 | PDOC.MOPN ---
Interval History: Patient denies any complaints. wants to go home. - Vital Signs Vital Signs: Vital Signs (12 hours) Temp Pulse Resp BP BP Pulse Ox 11/20/18 07:41 98.8 F 79 20 152/82 H 96 11/20/18 03:37 99.5 F 92 20 137/70 94 L 11/20/18 00:00 99.0 F 98 20 139/71 96 Weight Admit Weight 161 lb 7 oz Weight 161 lb 7 oz - Physical Exam General: Alert, Oriented x3, No acute distress HEENT: Atraumatic, PERRLA, EOMI, Mucous membr. moist/pink Lungs: Clear to auscultation, Normal air movement Cardiovascular: Regular rate, Normal S1, Normal S2, No murmurs, Gallops, Rubs Abdomen: Normal bowel sounds, Soft, No tenderness, No hepatospenomegaly, No masses Extremities: No edema Skin: No significant lesion (left breast fungating mass) Neurological: Normal speech - Labs Result Diagrams: 11/20/18 02:20 11/20/18 02:20 Lab results: Laboratory Results - last 24 hr 11/20/18 02:20: WBC 8.0, RBC 3.53 L, Hgb 8.9 L, Hct 27.6 L, MCV 78.3, MCH 25.1 L , MCHC 32.0, RDW 15.6 H, Plt Count 212, MPV 8.2, Neutrophils % 77.2 H, Lymphocytes % 11.9 L, Monocytes % 8.4, Eosinophils % 2.3, Basophils % 0.3, Neutrophils # 6.2, Lymphocytes # 1.0 L, Monocytes # 0.7 H, Eosinophils # 0.2, Basophils # 0.0 11/20/18 02:20: Sodium 142, Potassium 3.7, Chloride 110 H, Carbon Dioxide 22 L, Anion Gap 14, BUN 19, Creatinine 1.45 H, Estimated GFR (MDRD) 43, BUN/ Creatinine Ratio 13.10, Glucose 68 L, Calcium 8.3, Phosphorus 3.0, Albumin 2.7 L 11/20/18 02:20: Vancomycin Trough 17.1 Status: lab reviewed by me, discussed w/pathologist - Pathology Pathology: grade 3 invasive mammory carcinoma, HR and HER2 pending A/P - Problem (1) Acute thrombosis of left upper extremity Current Visit: Yes Code(s): I82.602 - ACUTE EMBOLISM AND THOMBOS UNSP VEINS OF L UP EXTREM Status: Acute (2) Breast neoplasm Current Visit: Yes Status: Acute - Plan Plan: continue anticoagulation Follow-up Dr. Estrada on Sunday12/02/18 at 3:15 to discuss treatment options. continue wound care.
[2018-11-20 11:54] VITALS: BP 146/74; TEMP 99
[2018-11-20] MEDS: HYDROcodone/Acetaminophen 5/325 mg Tablet PO PRN (14:38)
--- NOTE | 2018-11-20 15:36 | PRG ---
DATE OF SERVICE: 11/20/2018 SERVICE: Nephrology. SUBJECTIVE: A 73-year-old female with metastatic breast cancer, being followed up for [place] on CKD 3. The patient is status post Port-A-Cath placement on November 19. She had some nausea earlier today, which had subsided. Denied fever, chest pain, or palpitation. Leg swelling has improved significantly. OBJECTIVE: VITAL SIGNS: Temperature 99.0, pulse 85, respiratory rate 20, SpO2 of 96% on room air, blood pressure is 146/72. GENERAL: Elderly female, in no distress. Afebrile. Anicteric. Acyanotic. HEENT: Normocephalic and atraumatic. Oral mucosa is moist. CARDIOVASCULAR: Regular rhythm and rate with normal heart sounds 1 and 2. RESPIRATORY: Fair air entry bilaterally with no obvious crackle or rhonchi or use of accessory muscles. GI: Full, soft, nontender, nondistended with normal bowel sounds. EXTREMITIES: Mild bilateral leg edema. Left upper limb edema noted as well. BRICK WHEELER: Conscious, alert, oriented x3 with appropriate mental status. DIAGNOSTIC DATA: CBC today showed WBC count of 8, hemoglobin of 8.9, MCV of 78.3, platelets of 212. Renal function panel today showed sodium 142, potassium 3.7, chloride 110, CO2 of 22, BUN 19, creatinine 1.45, glucose 68, calcium 8.3, phosphorus 3.0, albumin 2.7. ASSESSMENT: 1. Acute kidney injury: Improved significantly with IV fluid and holding of diuretics. Creatinine is 1.47 today, which is better than recent baseline. 2. Chronic kidney disease, stage 3. 3. Hypertension on treatment. 4. Metabolic acidosis: Due to chronic kidney disease. 5. Anemia of chronic kidney disease. 6. Presumed metastatic breast cancer. 7. Chronic bilateral leg edema. 8. Left upper extremity deep venous thrombosis. PLAN: 1. We will give a dose of Venofer 200 mg IV and continue on discharge on oral iron supplementation. 2. We will continue sodium bicarbonate given chronic metabolic acidosis. 3. Continue antihypertensives. 4. Continue to hold diuretics even on discharge at this time. 5. Disposition: The patient can be discharged from Nephrology point of view. Outpatient followup in 2 weeks with repeat renal function panel is recommended. Job ID: [id number]
--- NOTE | 2018-11-20 21:39 | DIS ---
DATE OF ADMISSION: 11/15/2018 DATE OF DISCHARGE: 11/20/2018 DISCHARGE DIAGNOSES: 1. Invasive grade 3 mammary carcinoma. 2. Acute thrombosis of the left upper extremity. 3. Acute kidney injury on chronic kidney disease, improved. 4. Microcytic anemia, multifactorial. 5. Hypertension, stable. CONSULTATIONS: 1. Dr. Augustine with General Surgery Service. 2. Dr. Vieyra with Nephrology Service. 3. Dr. Robert Estrada with Medical Oncology Service. PERTINENT LABORATORY AND X-RAY FINDINGS: Creatinine ranged between 1.45 to 2.49. Estimated GFR ranged between 23 to 43. Lactic acid level 1.4, phosphorus ranged between 3.0 to 3.8. Serum iron level 35, TIBC 210, ferritin 298. CA-15-3 antigen 160.5. CA 27-29 is 247. CBC showed a hemoglobin ranging between 8.9 to 10.2, MCV 77, reticulocyte count 1.8. Blood culture x2 dated 11/15/2018, showed no growth at 48 hours. Urine culture dated 11/17/2018, showed no growth at 48 hours. Stool Hemoccult dated 11/19/2018, negative x1. 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 Renal ultrasound dated 11/17/2018, showed no evidence for hydronephrosis. Left upper extremity venous Doppler study dated 11/17/2018, showed partial and complete thrombosis of the left upper extremity venous system. Bone scan dated 11/18/2018, showed no evidence for osseous metastatic process. Left breast biopsy showed invasive mammary carcinoma, grade 3. HOSPITAL COURSE: The patient was admitted to the medical floor after presenting with open left breast wound consistent with advanced carcinoma. The patient underwent general evaluation including CT imaging of the chest showing questionable pulmonary metastatic process in conjunction with left breast neoplasm. The patient underwent biopsy per General Surgery with grade 3 invasive mammary carcinoma. The patient was evaluated by Medical Oncology Service with recommendations for outpatient management. The patient underwent successful MediPort placement on 11/19/2018. The patient did receive IV antibiotic therapy including Zosyn and vancomycin for associated cellulitis of the left breast. The patient was also evaluated with confirmation of thrombosis involving multiple veins of the left upper extremity. Recommendations are to initiate Xarelto 15 mg b.i.d. The patient also was treated for acute kidney injury with IV fluids as well as sodium bicarbonate. Renal function returned to baseline values with supportive management and avoidance of nephrotoxic agents. Current recommendations are to continue off diuretic therapy and to monitor renal function aggressively. I have examined the patient at the time of discharge and discussed followup instructions. The patient overall clinically stable and ready for discharge on 11/20/2018. DISCHARGE MEDICATIONS: 1. Xarelto 15 mg p.o. b.i.d. x21 days, then 20 mg p.o. daily. 2. Augmentin 500 mg p.o. b.i.d. x7 days. 3. Feosol 325 mg p.o. b.i.d. 4. Sodium bicarbonate 650 mg p.o. t.i.d. 5. Albuterol sulfate 90 mcg inhaled q.4 hours p.r.n. 6. Lipitor 20 mg p.o. q.a.m. 7. Bisoprolol 10 mg p.o. daily. 8. Vitamin D3 1000 units p.o. daily. 9. Clonidine 0.1 mg p.o. b.i.d. 10. Fentanyl patch 25 mcg transdermally q.72 hours. 11. Omeprazole 20 mg p.o. q.a.m. 12. Trazodone 50 mg p.o. at bedtime. 13. Hydralazine 25 mg p.o. t.i.d. FOLLOWUP: The patient may follow up with her primary care provider, Dr. Julian Guallpa within 7 days of discharge. The patient will follow up with Dr. Robert Estrada with Medical Oncology Service on 12/02/2018, at 3:15 pm. The patient will follow up with Dr. Vieyra with Nephrology Service within 2 weeks of discharge. CONDITION ON DISCHARGE: Fair. ACTIVITY: Ad-miguel ángel. DIET: Heart healthy. SPECIAL INSTRUCTIONS: The patient will receive home health services with wound care after discharge. CODE STATUS: Full. DISPOSITION: Home on 11/20/2018. TIME SPENT: Total time preparing and coordinating discharge, 45 minutes. Job ID: [id number]
--- NOTE | 2018-11-22 17:10 | PDOC.OP ---
Operative Note - Operative Note Operative Note: PROCEDURE: Right internal jugular MediPort placement with ultrasound and fluoroscopic guidance DATE OF PROCEDURE: 11/19/2018 SURGEON: Bret Augustine M.D. PREOPERATIVE DIAGNOSIS: Metastatic left breast cancer POSTOPERATIVE DIAGNOSIS: Metastatic left breast cancer HISTORY: Patient has been diagnosed with metastatic left breast cancer. Chemotherapy has been recommended and a Mediport has been requested for this. Due to the patient's renal insufficiency the decision was made to place this in the internal jugular position. OPERATIVE PROCEDURE IN DETAIL: After informed consent was obtained and appropriate preoperative antibiotics administered, the patient was taken to the operating room and placed in supine position and monitored anesthesia care was administered. The patient was then placed in Trendelenburg position and the right internal jugular vein accessed easily on the first attempt under direct ultrasound guidance with excellent flow of dark venous non-pulsatile blood. A wire threaded easily and was confirmed to be in the superior vena cava by fluoroscopy. Additional local anesthesia was infused to the skin and subcutaneous tissues inferior to the clavicle and of the right neck. The skin incision was made and a subcutaneous pocket developed inferiorly. A Mediport was obtained and confirmed to fit in the subcutaneous pocket. This was secured inferiorly to the pectoralis fascia with a Prolene suture, which was clamped, but not tied. A Mediport tubing was then tunneled to the right internal jugular access site. The dilator and sheath were then placed over the wire and the dilator and wire removed leaving the sheath in place. The clamped MediPort tubing was tunneled through the sheath, which was then split and removed leaving the MediPort tubing in place. The tubing was adjusted until the tip was confirmed by fluoroscopy to be in the superior vena cava just above the atrium. The tubing was clamped at the skin level and cut and the tubing secured to the port, which was then placed in the subcutaneous pocket. The previously placed suture was secured and two additional sutures were placed to fix the port in place within the pocket. The port was aspirated with the Gee needle and had excellent flow of dark venous non-pulsatile blood and easily flushed without resistance. The subcutaneous tissues were closed with a running Monocryl suture, following which the skin was closed with a running subcuticular Monocryl suture. Right internal jugular access site was also closed in layers with Monocryl suture. Dermabond dressings were placed and the hub was again accessed through the skin and confirmed to easily aspirate and easily flush. The course of the catheter was confirmed by fluoroscopy to be smooth with the tip appropriately located in the superior vena cava. The patient was taken back to recovery in good condition. Estimated blood loss was minimal. There were no complications. There were no specimens.
--- NOTE | 2018-11-22 17:17 | PDOC.OP ---
Operative Note - Operative Note Operative Note: PROCEDURE: Left breast skin punch biopsy and core biopsy of breast mass with ultrasound guidance SURGEON: Bret Augustine M.D. DATE: 11/16/2018 PREOPERATIVE DIAGNOSIS: Metastatic breast cancer POSTOPERATIVE DIAGNOSIS: Metastatic breast cancer HISTORY: A she reports rapidly growing mass in her left breast. She presented with powder on show and a very large partially necrotic-appearing tumor in the left upper outer quadrant of the breast extending into the axilla. This had ulcerated through the axillary skin and she had evidence on CT of lung metastasis. Recommendation was made to proceed with skin punch biopsy and core biopsy of the breast tumor to establish a diagnosis. PROCEDURE IN DETAIL: After informed consent was obtained, the skin was prepped with alcohol and local anesthesia infused. A punch biopsy device was used to obtain a full-thickness skin specimen which was placed in formalin and sent to pathology. Ultrasound was then used to identify viable appearing areas of the breast tumor. Several core biopsies were taken under direct ultrasound guidance , avoiding the most vascular areas but also avoiding the necrotic-appearing underlying areas. These core biopsies were placed in formalin as well. The skin incision was then closed with a nylon suture and dressed. The patient tolerated the procedure well. Estimated blood loss is minimal. There were no complications. Specimens are skin punch biopsies and multiple core biopsies of the left breast.
== END 2018-11-20 16:36 | disposition home health service (06) | DRG 580 ==
LOC: ERS 17:53 → T4-B 21:40
PROVIDERS: ADMIT Hospitalist; ATTEND Hospitalist
PROC: 0HBUXZX (ICD-10-PCS; 2018-11-15)
PROC: 0JH60WZ Insertion of Totally Implantable Vascular Access Device into Chest Subcutaneous Tissue and Fascia, Open Approach (ICD-10-PCS; principal; 2018-11-19)
PROC: 02HV33Z Insertion of Infusion Device into Superior Vena Cava, Percutaneous Approach (ICD-10-PCS; 2018-11-19)
PROC: B518YZA Fluoroscopy of Superior Vena Cava using Other Contrast, Guidance (ICD-10-PCS; 2018-11-19)
DX: C50.912 Malignant neoplasm of unspecified site of left female breast (principal); C78.02 Secondary malignant neoplasm of left lung; N17.9 Acute kidney failure, unspecified; I82.622 Acute embolism and thrombosis of deep veins of left upper extremity; I82.612 Acute embolism and thrombosis of superficial veins of left upper extremity; E87.2 Acidosis; D63.1 Anemia in chronic kidney disease; I12.9 Hypertensive chronic kidney disease with stage 1 through stage 4 chronic kidney disease, or unspecified chronic kidney disease; N18.3 Chronic kidney disease, stage 3 (moderate); E78.5 Hyperlipidemia, unspecified; F17.210 Nicotine dependence, cigarettes, uncomplicated; D63.0 Anemia in neoplastic disease; J44.9 Chronic obstructive pulmonary disease, unspecified; D50.9 Iron deficiency anemia, unspecified; Z79.899 Other long term (current) drug therapy
CPT/HCPCS: 36415; 36416; 71045; 71250; 76770; 78306; 80053; 80069; 80202; 81001; 82274; 82570; 82728; 83540; 83550; 83605; 84156; 84300; 84540; 85025; 85046; 86300; 87040; 87086; 88305; 96361; 96365; 96375; A9503; C1788; J1642; J1756; J1885; J2001; J2405; J2543; J2704; J3010; J3370; J3490; J7050

== ENCOUNTER 2018-11-25 02:52 | Inpatient (IN) | payer MEDICARE ==
[2018-11-25] MEDS ORDERED: Silver Nitrate Application 1 EACH ONE (03:01)
[2018-11-25 04:04] LABS: Hemoglobin 5.3 g/dL (12.0-16.0); Mean Corpuscular HGB CONC 32.1 g/dL (32.0-36.0); Mean Corpuscular Hemoglobin 25.3 pg (27.0-31.0); Mean Corpuscular Volume 78.8 fL (78.0-98.0); Mean Platelet Volume 8.5 fL (7.4-10.4); Platelet Count 218 thou/uL (130-400); RBC Distribution Width 16.5 % (11.5-14.5); Red Blood Cell (RBC) Count 2.05 mill/uL (4.20-5.40); White Blood Cell (WBC) Count 25.2 thou/uL (4.8-10.8)
[2018-11-25 04:30] LABS: ALT (SGPT) Less than 7 U/L (8-55); AST (SGOT) 18 U/L (5-34); Albumin 2.6 g/dL (3.4-4.8); Alkaline Phosphatase 48 U/L (40-150); BUN (Urea Nitrogen) 26 mg/dL (9.8-20.1); Bilirubin, Total 0.2 mg/dL (0.2-1.2); Calc. Creatinine Clearance 0 mL/min (70-130); Calcium 7.9 mg/dL (7.8-10.44); Carbon Dioxide 17 mmol/L (23-31); Chloride 112 mmol/L (98-107); Estimated GFR-MDRD 18; Globulin 2.1 g/dL (2.4-3.5); Glucose 122 mg/dL (83-110); Potassium 3.9 mmol/L (3.5-5.1); Protein, Total 4.7 g/dL (6.0-8.3); Sodium 140 mmol/L (136-145)
[2018-11-25 04:31] LABS: Band 3 % (5-11); Lymphocytes 10 % (21-51); MDiff Complete? YES; Monocytes 5 % (0-10); Neutrophil 82 % (42-75); Platelet Morphology Comment Appears Adequate
[2018-11-25 05:15] LABS: Anion Gap 15 mmol/L (10-20)
--- NOTE | 2018-11-25 06:33 | PDOC.HHP ---
Hospitalist HPI - History of Present Illness CC: bleeding from my chest wound, and feeling weak. History of Present Illness: Ms. Mckeon is a pleasant 73 year old female who was recently diagnosed with stage 3 mammary carcinoma of the breast. She has a large fungating mass in the left axilla. She was not considered a surgical candidate on her last visit. She notes pain and a feeling of heaviness in the area. She says it has been bleeding off and on since she left the hospital. However, in the past few days it has been bleeding excessively. She has a home health nurse who comes out to check on her. The bleeding was noted, and he put a dressing on it. The patient' s daughter says that not more than 15 minutes later, the dressing was soaked with blood. She put on another one herself, and the same thing occurred. She brought her mother to the ER where it was found that she is severely anemic. She admits to feeling very fatigued, especially over the past 2 days. She also notes chills off and on, and some nausea and vomiting. She was evaluated in the ER. The area has been cauterized, and the bleeding has subsided. Hospitalist ROS - Review of Systems Constitutional: reports: chills (off and on) Eyes: denies: pain, vision change, conjunctivae inflammation, eyelid inflammation, redness, other ENT: denies: ear pain, ear discharge, nose pain, nose discharge, nose congestion , mouth pain, mouth swelling, throat pain, throat swelling, other Respiratory: denies: cough, dry, shortness of breath, hemoptysis, SOB with excertion, pleuritic pain, sputum, wheezing, other Cardiovascular: reports: chest pain (+ chest wall pain). denies: palpitations, orthopnea, paroxysmal noc. dyspnea, edema, light headedness, other Gastrointestinal: reports: nausea (+ nausea off and on). denies: vomitting, abdominal pain, diarrhea, constipation, melena, hematochezia, other Genitourinary: denies: dysuria, frequency, incontinence, hematuria, retention, other Musculoskeletal: denies: neck pain, shoulder pain, arm pain, back pain, hand pain, leg pain, foot pain, other Skin: denies: rash, lesions, jennifer, bruising, other Neurological: denies: weakness, numbness, incoordination, change in speech, confusion, seizures, other Hospitalist History - Past Medical History Source: patient Cardiac: reports: HTN Heme/Onc: reports: Cancer (Stage 3 Mammary Cancer) Renal/: reports: Chronic renal failure (CKD-3) - Past Surgical History Past Surgical History: reports: Appendectomy, Breast Biopsy, Cholecystectomy, Other (Mediport placement Back Surgery) - Family History Family History: reports: cancer - Social History Smoking Status: Smokes 11 or more cig/day Alcohol: reports: None Drugs: reports: none Living Situation: With Family Other Social History: CODE STATUS: FULL CODE Daughter is Surrogate decision Maker ALLERGIES- NKDA MEDICATION: These will need to be reconciled - Exam General Appearance: NAD, awake alert, ill appearing Eye: PERRL, anicteric sclera ENT: normocephalic atraumatic, no oropharyngeal lesions, moist mucosa Neck: supple, symmetric, no JVD, no thyromegaly Heart: RRR, no murmur, no gallops, no rubs, normal peripheral pulses Respiratory: rhonchi (occasional rhonchi) Gastrointestinal: soft, non-tender, non-distended, normal bowel sounds, no palpable masses, no hepatomegaly, no splenomegaly, no bruit Extremities: no cyanosis, no clubbing (+ large hard mass in the left upper chest , with several areas of fungating open wounds minimal serous drainage from the wounds, no puss on induration) Hospitalist Results - Labs Result Diagrams: 11/25/18 03:48 11/25/18 03:48 Lab results: WBC 25.2 thou/uL (4.8-10.8) H 11/25/18 03:48 Hgb 5.3 g/dL (12.0-16.0) L* 11/25/18 03:48 Hct 16.2 % (36.0-47.0) L 11/25/18 03:48 MCV 78.8 fL (78.0-98.0) 11/25/18 03:48 Plt Count 218 thou/uL (130-400) 11/25/18 03:48 Band Neuts % (Manual) 3 % (5-11) L 11/25/18 03:48 Sodium 140 mmol/L (136-145) 11/25/18 03:48 Potassium 3.9 mmol/L (3.5-5.1) 11/25/18 03:48 Chloride 112 mmol/L (98-107) H 11/25/18 03:48 Carbon Dioxide 17 mmol/L (23-31) L 11/25/18 03:48 BUN 26 mg/dL (9.8-20.1) H 11/25/18 03:48 Creatinine 3.05 mg/dL (0.6-1.1) H 11/25/18 03:48 Glucose 122 mg/dL (83-110) H 11/25/18 03:48 Calcium 7.9 mg/dL (7.8-10.44) 11/25/18 03:48 Total Bilirubin 0.2 mg/dL (0.2-1.2) 11/25/18 03:48 AST 18 U/L (5-34) 11/25/18 03:48 ALT Less than 7 U/L (8-55) L 11/25/18 03:48 Alkaline Phosphatase 48 U/L (40-150) 11/25/18 03:48 Troponin I Less than 0.010 ng/mL (< 0.028) 11/25/18 03:48 Serum Total Protein 4.7 g/dL (6.0-8.3) L 11/25/18 03:48 Albumin 2.6 g/dL (3.4-4.8) L 11/25/18 03:48 Hospitalist H&P A/P - Problem (1) Acute blood loss anemia Code(s): D62 - ACUTE POSTHEMORRHAGIC ANEMIA Status: Acute (2) Acute kidney injury Code(s): N17.9 - ACUTE KIDNEY FAILURE, UNSPECIFIED Status: Acute (3) Deep vein thrombosis, upper left extremity Code(s): I82.622 - ACUTE EMBOLISM AND THROMBOSIS OF DEEP VEINS OF L UP EXTREM Status: Chronic (4) Breast neoplasm Status: Chronic (5) Hypertension Code(s): I10 - ESSENTIAL (PRIMARY) HYPERTENSION Status: Chronic - Plan Plan: * Acute blood loss anemia- this is the result of the breast wound- Hemostasis has been achieved by the ER Physician ( at least for now) Agree with type and cross and transfusion of 2 units of RBC's. Will hold her Eliquis for now, can consider re-starting in a few days if her H&H remains stable * Breast Wound- this is considered non-operable- however if the bleeding resumes , would consult General Surgery * Acute Kidney injury- likely due to prerenal azotemia, from blood loss- hopefully this will improve with transfusion * DVT in the Left upper extremity- hold anticoagulation for now, consider re- start in a few days * HTN- reconcile and re-start home medications as indicated
--- NOTE | 2018-11-25 09:03 | RAD ---
UPRIGHT PORTABLE CHEST 1 VIEW: Date: 11/25/18 HISTORY: Bleeding, MediPort placement. Patient on anticoagulants. FINDINGS: Right subclavian catheter injection port. Two pulmonary nodules, one in the right lower lobe and the other in the left upper lobe, better demonstrated than on the prior study. Heart size within normal l imits. No confluent pneumonia, overt edema, pneumothorax, or other acute process. IMPRESSION: Bilateral pulmonary nodules. No significant new process. POS: [place]
[2018-11-25] MEDS ORDERED: Sodium Chloride 0.9% 1,000 ML IV SCH ×2 (12:21→12:44)
[2018-11-25] MEDS ORDERED: Ondansetron ODT 4 MG TAB PO PRN (12:44)
[2018-11-25] MEDS ORDERED: hydrALAZINE 20 MG/ML VIAL SLOW IVP PRN (12:44)
[2018-11-25] MEDS ORDERED: Ondansetron PF 4 MG/2 ML Vial IVP PRN (12:44)
[2018-11-25] MEDS: HYDROcodone/Acetaminophen 7.5/325 mg Tablet PO PRN (13:32)
--- NOTE | 2018-11-25 16:48 | PDOC.HOSPP ---
- Subjective Encounter Date: 11/25/18 Subjective: She has no specific complaints. - Objective Vital Signs & Weight: Vital Signs (12 hours) Temp Pulse Resp BP Pulse Ox 11/25/18 15:49 98.1 F 128 H 18 138/63 97 11/25/18 12:20 97.9 F 126 H 18 137/78 98 Weight Weight 170 lb 3.2 oz Result Diagrams: 11/25/18 03:48 11/25/18 03:48 Hospitalist ROS - Medication Medications: Active Medications Generic Name Dose Route Start Last Admin Trade Name Freq PRN Reason Stop Dose Admin Hydrocodone Bitart/Acetaminophen 1 tab 11/25/18 12:44 11/25/18 13:32 [place] 7.5/325 PO 1 tab Q4H PRN Administration Moderate Pain (4-6) Sodium Chloride 1,000 mls @ 75 mls/hr 11/25/18 12:44 11/25/18 13:12 Normal Saline 0.9% IV 1,000 mls .[id number] MARGOTH Administration - Exam General Appearance: NAD, awake alert Eye: PERRL, anicteric sclera ENT: normocephalic atraumatic, no oropharyngeal lesions, moist mucosa Neck: supple, symmetric, no JVD, no thyromegaly, no lymphadenopathy, no carotid bruit Heart: RRR, no murmur, no gallops, no rubs, normal peripheral pulses Respiratory: rales Gastrointestinal: soft, non-tender, non-distended, normal bowel sounds, no palpable masses, no hepatomegaly, no splenomegaly, no bruit Extremities: no cyanosis, no clubbing, no edema Neurological: CN's grossly intact, normal sensation to touch, no weakness, no focal deficits, no new deficit Hosp A/P (1) Acute kidney injury Code(s): N17.9 - ACUTE KIDNEY FAILURE, UNSPECIFIED Status: Acute (2) Deep vein thrombosis, upper left extremity Code(s): I82.622 - ACUTE EMBOLISM AND THROMBOSIS OF DEEP VEINS OF L UP EXTREM Status: Chronic (3) Hypertension Code(s): I10 - ESSENTIAL (PRIMARY) HYPERTENSION Status: Chronic (4) Anemia Code(s): D64.9 - ANEMIA, UNSPECIFIED Status: Acute (5) Breast abscess of female Code(s): N61.1 - ABSCESS OF THE BREAST AND NIPPLE Status: Acute (6) CKD (chronic kidney disease) stage 3, GFR 30-59 ml/min Code(s): N18.3 - CHRONIC KIDNEY DISEASE, STAGE 3 (MODERATE) Status: Chronic - Plan she is very tachycardic, she has been this way since admission and getting worse , it seems like sinus tachycardia---I will check another hgb now, her tachycardia could be due to her severe anemia---will transfuse according to results. I will also recheck her kidney function, she is currently receiving IVF for acute on chronic renal insufficiency. will resume her BP meds---tachycardia could be due to withdrawal from her B- Blockers. will resume ATB for her recently presumed wound infection although I did not see redness around her wound. will resume her pain meds.
[2018-11-25 18:11] LABS: Hemoglobin 8.7 g/dL (12.0-16.0); Mean Corpuscular HGB CONC 33.8 g/dL (32.0-36.0); Mean Corpuscular Hemoglobin 27.6 pg (27.0-31.0); Mean Corpuscular Volume 81.5 fL (78.0-98.0); Mean Platelet Volume 8.6 fL (7.4-10.4); Platelet Count 167 thou/uL (130-400); RBC Distribution Width 15.8 % (11.5-14.5); Red Blood Cell (RBC) Count 3.16 mill/uL (4.20-5.40); White Blood Cell (WBC) Count 29.2 thou/uL (4.8-10.8)
[2018-11-25] MEDS ORDERED: PROVENTIL INHALER 6.7 G (200 INHALATIONS) INH PRN (18:17)
[2018-11-25 18:22] LABS: Anion Gap 14 mmol/L (10-20); BUN (Urea Nitrogen) 28 mg/dL (9.8-20.1); Calc. Creatinine Clearance 23 mL/min (70-130); Calcium 7.9 mg/dL (7.8-10.44); Carbon Dioxide 16 mmol/L (23-31); Chloride 117 mmol/L (98-107); Estimated GFR-MDRD 22; Glucose 90 mg/dL (83-110); Potassium 4.4 mmol/L (3.5-5.1); Sodium 143 mmol/L (136-145)
[2018-11-25 18:31] LABS: Band 6 % (5-11); Helmet Cells SLIGHT = 2-5 cells (100X) (0-1/hpf); Lymphocytes 2 % (21-51); MDiff Complete? YES; Monocytes 5 % (0-10); Neutrophil 81 % (42-75); Ovalocytes SLIGHT = 2-5 cells (100X) (0-1/hpf); Platelet Morphology Comment Appears Adequate; Polychromasia SLIGHT = 2-3 cells (100X) (0-2/hpf); Reactive Lymphocytes 6 % (0-10); Tear Drops SLIGHT = 2-5 cells (100X) (0-1/hpf)
[2018-11-25] MEDS: Sodium Chloride 0.9% 1,000 ML IV SCH (19:30)
[2018-11-25] MEDS: Acetaminophen 325 MG TAB PO PRN (20:32)
[2018-11-25] MEDS: Sodium Bicarbonate Tab 325 MG TAB PO SCH (20:33)
[2018-11-25] MEDS: traZODone HCl 50 MG TAB PO SCH (20:33)
[2018-11-25] MEDS: cloNIDine 0.1 MG TAB PO SCH (20:38)
[2018-11-25] MEDS ORDERED: Ampicillin/Sulbactam 3 GM in Sodium Chloride 0.9% 100 ML IVPB SCH (21:00)
[2018-11-25] MEDS: ceFAZolin Sodium 1 GM/Dextrose 50 ML BAG IVPB SCH (21:40)
[2018-11-26] MEDS ORDERED: Vancomycin HCl 750 MG in Sodium Chloride 0.9% 250 ML 250 ML IVPB SCH (02:45)
[2018-11-26] MEDS: Sodium Chloride 0.9% 1,000 ML IV SCH ×2 (02:49→15:16)
[2018-11-26] MEDS: Acetaminophen 325 MG TAB PO PRN ×3 (02:49→16:56)
[2018-11-26 02:57] LABS: Hemoglobin 8.7 g/dL (12.0-16.0); Mean Corpuscular HGB CONC 33.5 g/dL (32.0-36.0); Mean Corpuscular Hemoglobin 28.1 pg (27.0-31.0); Mean Platelet Volume 8.5 fL (7.4-10.4); Platelet Count 191 thou/uL (130-400); Red Blood Cell (RBC) Count 3.07 mill/uL (4.20-5.40); White Blood Cell (WBC) Count 24.3 thou/uL (4.8-10.8)
[2018-11-26] MEDS ORDERED: Vancomycin HCl 500 MG in Sodium Chloride 0.9% 100 ML IVPB SCH (03:00)
[2018-11-26 03:02] LABS: Anion Gap 12 mmol/L (10-20); BUN (Urea Nitrogen) 28 mg/dL (9.8-20.1); Calc. Creatinine Clearance 25 mL/min (70-130); Calcium 7.6 mg/dL (7.8-10.44); Carbon Dioxide 18 mmol/L (23-31); Chloride 113 mmol/L (98-107); Estimated GFR-MDRD 24; Glucose 91 mg/dL (83-110); Potassium 3.9 mmol/L (3.5-5.1); Sodium 139 mmol/L (136-145)
[2018-11-26 03:13] LABS: Band 3 % (5-11); Lymphocytes 11 % (21-51); MDiff Complete? YES; Monocytes 4 % (0-10); Neutrophil 82 % (42-75)
[2018-11-26] MEDS: cloNIDine 0.1 MG TAB PO SCH ×2 (08:44→21:00)
[2018-11-26] MEDS: Ferrous Sulfate 325 MG TAB PO SCH ×2 (08:44→16:53)
[2018-11-26] MEDS: Famotidine 20 MG TAB PO SCH (08:45)
[2018-11-26] MEDS: Sodium Bicarbonate Tab 325 MG TAB PO SCH ×3 (08:45→21:00)
[2018-11-26] MEDS: Cholecalciferol (Vitamin D3) 400 UNITS TAB PO SCH (08:45)
[2018-11-26] MEDS: Bisoprolol Fumarate 5 MG TAB PO SCH (08:45)
[2018-11-26] MEDS: ceFAZolin Sodium 1 GM/Dextrose 50 ML BAG IVPB SCH (08:46)
[2018-11-26] MEDS: Atorvastatin Calcium 40 MG TAB PO SCH (08:57)
--- NOTE | 2018-11-26 10:33 | PDOC.HOSPP ---
- Subjective Encounter Date: 11/26/18 Subjective: feels better today and jokingly asking to go home - Objective Vital Signs & Weight: Vital Signs (12 hours) Temp Pulse Resp BP Pulse Ox 11/26/18 07:51 101.1 F H 127 H 18 118/55 L 95 11/26/18 04:00 100.7 F H 133 H 16 124/58 L 95 11/26/18 03:07 93 L 11/26/18 02:00 99.5 F 125 H 20 148/80 H 93 L 11/26/18 00:00 100.9 F H 117 H 18 107/53 L 94 L 11/25/18 23:30 100.5 F H 121 H 18 119/52 L 94 L 11/25/18 23:00 99.5 F Weight Weight 172 lb 14.4 oz I&O: 11/25/18 11/26/18 11/27/18 06:59 06:59 06:59 Intake Total 2900 Output Total 300 Balance 2600 Result Diagrams: 11/26/18 18:53 11/26/18 18:53 Hospitalist ROS - Medication Medications: Active Medications Generic Name Dose Route Start Last Admin Trade Name Freq PRN Reason Stop Dose Admin Acetaminophen 650 mg 11/25/18 12:44 11/26/18 08:45 Tylenol PO 650 mg Q4H PRN Administration Headache/Fever/Mild Pain (1-3) Hydrocodone Bitart/Acetaminophen 1 tab 11/25/18 12:44 11/25/18 13:32 [place] 7.5/325 PO 1 tab Q4H PRN Administration Moderate Pain (4-6) Atorvastatin Calcium 40 mg 11/26/18 09:00 11/26/18 08:57 Lipitor PO 40 mg QAM MARGOTH Administration Bisoprolol Fumarate 10 mg 11/26/18 09:00 11/26/18 08:45 Zebeta PO 10 mg DAILY MARGOTH Administration Cholecalciferol 200 units 11/26/18 09:00 11/26/18 08:45 Vitamin D PO 200 units DAILY MARGOTH Administration Clonidine 0.1 mg 11/25/18 21:00 11/26/18 08:44 Catapres PO 0.1 mg BID MARGOTH Administration Famotidine 20 mg 11/26/18 09:00 11/26/18 08:45 Pepcid PO 20 mg DAILY MARGOTH Administration Fentanyl 25 mcg 11/26/18 09:00 11/26/18 09:41 Duragesic TD 25 mcg Q3D MARGOTH Administration Ferrous Sulfate 325 mg 11/26/18 08:00 11/26/18 08:44 Feosol PO 325 mg BID-WM MARGOTH Administration Sodium Chloride 1,000 mls @ 100 mls/hr 11/25/18 19:26 11/26/18 02:49 Normal Saline 0.9% IV 1,000 mls .Q10H MARGOTH Administration Pantoprazole Sodium 40 mg 11/26/18 09:00 11/26/18 08:45 Protonix PO 40 mg DAILY MARGOTH Administration Sodium Bicarbonate 650 mg 11/25/18 21:00 11/26/18 08:45 Bicarbonate, Sodium PO 650 mg TID MARGOTH Administration Trazodone HCl 50 mg 11/25/18 21:00 11/25/18 20:33 Desyrel PO 50 mg HS MARGOTH Administration - Exam Eye: PERRL, anicteric sclera ENT: normocephalic atraumatic, no oropharyngeal lesions, moist mucosa Neck: supple, symmetric, no JVD, no thyromegaly, no lymphadenopathy, no carotid bruit Heart: RRR, no murmur, no gallops, no rubs, normal peripheral pulses Respiratory: rales (bilaterally) Gastrointestinal: soft, non-tender, non-distended, normal bowel sounds, no palpable masses, no hepatomegaly, no splenomegaly, no bruit Skin - other findings: fungating mass in left axilla, serous discharge,no purlence appreciated Hosp A/P (1) Acute kidney injury Code(s): N17.9 - ACUTE KIDNEY FAILURE, UNSPECIFIED Status: Acute (2) Deep vein thrombosis, upper left extremity Code(s): I82.622 - ACUTE EMBOLISM AND THROMBOSIS OF DEEP VEINS OF L UP EXTREM Status: Chronic (3) Hypertension Code(s): I10 - ESSENTIAL (PRIMARY) HYPERTENSION Status: Chronic (4) Anemia Code(s): D64.9 - ANEMIA, UNSPECIFIED Status: Acute (5) Breast abscess of female Code(s): N61.1 - ABSCESS OF THE BREAST AND NIPPLE Status: Acute (6) CKD (chronic kidney disease) stage 3, GFR 30-59 ml/min Code(s): N18.3 - CHRONIC KIDNEY DISEASE, STAGE 3 (MODERATE) Status: Chronic - Plan events noted overnight -she was very tachycardic, she has been this way since admission ---this am her HR is wnl--will continue with hydration. - kidney function is improving, she is currently receiving IVF for acute on chronic renal insufficiency, her cr is improving -will resume her BP meds---tachycardia could be due to withdrawal from her B- Blockers. - fever in am, will change keflex to Zosyn, Vanco is added, ID was consulted by the night team, will do a ua and culture will resume her pain meds. addendum rapid response was called patient became tachycardic and started shaking intensely, she did not have any shortness of breath, her BP remained stable. She is now doing better, she is in the IMCU, CT abdomen/pelvis/chest is ordered / cannot use contrast de to kidney failure, cannot rule a PE. I awaiting for her labs, I suspect sepsis, source still not clear, she will be covered with IV VAnc and Zosyn, ID called, pulmonary consulted. I might start on heparin drip, we could be dealing with a PE in vie of her recent DVT. management as per clinical progression. one hour of critical care time was spent to discharge the patient
[2018-11-26] MEDS: Piperacillin/Tazobactam 2.25 GM in Sodium Chloride 0.9% 100 ML IVPB SCH ×2 (12:06→18:20)
[2018-11-26 13:44] LABS: Actual Bicarbonate (HCO3a) 12.7 mEq/L (22-28); Base Excess (BEa) -11.6 mEq/L (-2.0 to +3.0); Calcium, Ionized 1.03 mmol/L (1.12-1.30); Carboxyhemoglobin (COHb) 1.8 gm% (0.0-3.0); Hemoglobin (Hb) 9.1 g/dL (12.0-16.0); Potassium - ABG Lab 4.32 mmol/L (3.70-5.30); pH, Arterial 7.34 (7.35-7.45)
[2018-11-26 13:49] LABS: CO2 Tension 24.1 mmHg (35.0-45.0); O2 Tension (PaO2) 57.2 mmHg (> 70.0)
[2018-11-26] MEDS ORDERED: Vancomycin HCl 1.25 GM in Sodium Chloride 0.9% 250 ML 300 ML IVPB SCH (14:00)
--- NOTE | 2018-11-26 14:31 | RAD ---
PORTABLE CHEST 1 VIEW: Date: 11/26/18 Time: 1352 hours HISTORY: Code GREEN. FINDINGS/IMPRESSION: Comparison made with exam of previous day. Right-sided Port-A-Cath remains in place. The heart size is normal. The aorta is tortuous. There is m ild pulmonary vascular congestion. Nodular densities in the lungs are again seen. POS: [facility]
[2018-11-26 15:19] LABS: Vancomycin, Random 9.2 ug/mL (See Comment)
[2018-11-26 15:39] LABS: INR-International Normal Ratio 1.7; PTT 41.8 SEC (22.9-36.1); Prothrombin Time 19.4 SEC (12.0-14.7)
[2018-11-26 15:44] LABS: Bilirubin Negative (Negative); Blood, Urine Negative (Negative); Clarity Clear (Clear); Glucose, Urine (Dipstick) Normal (Negative); Leukocyte Negative Leu/uL (Negative); Nitrite Negative (Negative); Protein, Urine (Dipstick) 30 mg/dL (Neg-Trace); RBC/HPF 0-3 HPF (0-3); Urobilinogen Normal mg/dL (Less than 2); WBC/HPF 0-3 HPF (0-3)
[2018-11-26 15:45] LABS: Bacteria/HPF 1+ HPF (None Seen)
[2018-11-26 15:47] LABS: Urine Culture Reflex No No
[2018-11-26 15:50] LABS: #Lymphocytes 1.4 thou/uL (1.20-3.40); #Monocytes 0.1 thou/uL (0.11-0.59); #Neutrophils 5.6 thou/uL (1.40-6.50); %Basophils 0.4 % (0.0-1.0); %Eosinophils 0.4 % (0.0-10.0); %Lymphocytes 19.5 % (21.0-51.0); %Monocytes 1.6 % (0.0-10.0); %Neutrophils 78.2 % (42.0-75.0); Mean Corpuscular HGB CONC 33.2 g/dL (32.0-36.0); Mean Corpuscular Hemoglobin 27.7 pg (27.0-31.0); Mean Corpuscular Volume 83.4 fL (78.0-98.0); Mean Platelet Volume 9.2 fL (7.4-10.4); Platelet Count 184 thou/uL (130-400); RBC Distribution Width 16.3 % (11.5-14.5); Red Blood Cell (RBC) Count 2.88 mill/uL (4.20-5.40); White Blood Cell (WBC) Count 7.1 thou/uL (4.8-10.8)
[2018-11-26 15:57] LABS: Anion Gap 15 mmol/L (10-20); BUN (Urea Nitrogen) 28 mg/dL (9.8-20.1); Calc. Creatinine Clearance 29 mL/min (70-130); Calcium 7.1 mg/dL (7.8-10.44); Carbon Dioxide 15 mmol/L (23-31); Chloride 112 mmol/L (98-107); Estimated GFR-MDRD 28; Glucose 84 mg/dL (83-110); Potassium 4.5 mmol/L (3.5-5.1); Sodium 137 mmol/L (136-145)
--- NOTE | 2018-11-26 16:44 | CT ---
CT of the chest, abdomen and pelvis without IV contrast COMPARISON: CT of the thorax dated November 15, 2018 INDICATION: History of fever FINDINGS: The left breast mass has increased in size now measuring 14.5 x 13 cm. There is enlargement of the scattered pulmonary nodules consistent with metastatic disease. Index nod ule in the right lower lobe now measures 1.8 cm where previously it measured 1.2 cm. There are small bilateral pleural effusions and bibasilar atelectasis. There is diffuse anasarca of the left rox dy wall. There is prominent edema of the left breast. This is a right chest wall port in place. The lack of IV contrast limits evaluation for metastatic disease within the abdomen and pelvis. The gallbladder surgically absent. There is moderate anasarca. There is a fibroid uterus. There is a partially decompressed bladder. The re are scattered colonic diverticula. No drainable fluid collection is evident. No suspicious osteolytic or osteoblastic lesion is evident. There is a left total hip prosthesis. The re is postsurgical change involving the lower lumbar spine. IMPRESSION: 1. Enlarging the inflammatory left breast mass. 2. Worsening pulmonary metastatic disease. 3. Small bilateral pleural effusions with moderate anasarca
[2018-11-26] MEDS: Vancomycin HCl 1 GM in Premix Bag 1 BAG IVPB SCH (16:53)
[2018-11-26 19:10] LABS: Hemoglobin 6.5 g/dL (12.0-16.0); Mean Corpuscular HGB CONC 33.2 g/dL (32.0-36.0); Mean Corpuscular Hemoglobin 27.8 pg (27.0-31.0); Mean Corpuscular Volume 83.5 fL (78.0-98.0); Mean Platelet Volume 8.8 fL (7.4-10.4); Platelet Count 148 thou/uL (130-400); RBC Distribution Width 16.1 % (11.5-14.5); Red Blood Cell (RBC) Count 2.33 mill/uL (4.20-5.40); White Blood Cell (WBC) Count 12.6 thou/uL (4.8-10.8)
[2018-11-26 19:27] LABS: Anion Gap 12 mmol/L (10-20); BUN (Urea Nitrogen) 30 mg/dL (9.8-20.1); Calc. Creatinine Clearance 27 mL/min (70-130); Calcium 6.9 mg/dL (7.8-10.44); Carbon Dioxide 16 mmol/L (23-31); Chloride 113 mmol/L (98-107); Estimated GFR-MDRD 26; Glucose 102 mg/dL (83-110); Potassium 3.6 mmol/L (3.5-5.1); Sodium 137 mmol/L (136-145)
[2018-11-26 19:34] LABS: Band 33 % (5-11); Lymphocytes 3 % (21-51); MDiff Complete? YES; Neutrophil 64 % (42-75); Ovalocytes SLIGHT = 2-5 cells (100X) (0-1/hpf); Platelet Morphology Comment Appears Adequate; Polychromasia SLIGHT = 2-3 cells (100X) (0-2/hpf); Tear Drops SLIGHT = 2-5 cells (100X) (0-1/hpf)
[2018-11-26] MEDS: traZODone HCl 50 MG TAB PO SCH (21:00)
[2018-11-26] MEDS ORDERED: Norepinephrine 8 MG in Dextrose 5% in Water 242 ML IVPB PRN (21:46)
--- NOTE | 2018-11-26 22:25 | CON ---
DATE OF CONSULTATION: 11/26/2018 REASON FOR CONSULTATION: Possible sepsis. HISTORY OF PRESENT ILLNESS: A 73-year-old with history of hypertension and stage T3 left breast cancer with lung mets and DVT in the left upper extremity who had a port placed for initiation of chemotherapy about a week ago. The patient had been given anticoagulation for deep vein thrombosis in the left upper extremity and had to be discontinued, because of bleeding. Subsequently, she had some nausea and vomiting, felt unwell and was brought in for evaluation and treatment. No headaches. No visual symptoms change. No sore throat, odynophagia, or dysphagia. No dental pain, no back pain. No dyspnea or chest pain except for the mass in the left side. No abdominal pain. No genitourinary symptoms. No other joint symptoms. No neurological symptoms. PAST MEDICAL HISTORY: Hypertension, stage T3 breast cancer, also CKD stage 3. PAST SURGICAL HISTORY: Appendectomy, breast biopsy, cholecystectomy, and recent MediPort placement. FAMILY HISTORY: Some form of cancer. SOCIAL HISTORY: Current smoker. Lives in [place]. Does not want her cancer history to be told to anybody other than her daughter. ALLERGIES: NONE. CURRENT MEDICATIONS: 1. Hydrocodone. 2. Inhalers. 3. Lipitor. 4. Zebeta. 5. Catapres. 6. Pepcid. 7. Duragesic. 8. Feosol. 9. Hydralazine. 10. Zofran. 11. Protonix. 12. Zosyn. 13. Vancomycin. PHYSICAL EXAMINATION: VITAL SIGNS: T-max 102.7, currently 99.8, BP 104/54, pulse 93, respirations 18, O2 saturation 97 with 1 L nasal cannula. SKIN: Shows this large mass with necrotic features. Multiple nodularities in the left axillary region. This mass measures about 8 cm x 6 and abuts the lateral aspect of the left breast. She has a port, which is accessed in the right subclavian location and is voiding in the bedside commode. No other skin changes. No lymphadenopathy. HEENT: Ocular movements conjugate. Sclerae white. Pupils are equal. Oral cavity with dentures. NECK: Supple, jugular vein distention or carotid bruits. LUNGS: Symmetric, clear breath sounds. HEART: S1 and S2, regular rate. No S3 or S4. ABDOMEN: Soft, not distended or tender. No ascites. No bladder distention. No joint inflammatory activity. NEUROLOGIC: Nonfocal. Cognitive function appears normal. LABORATORY DATA: White cell count 25,000, now is 24.3, hemoglobin 8.7, MCV 84, platelets 191 with 82% neutrophils. INR 1.7. Sodium 139, creatinine 2.38 and liver profile normal. Alkaline phosphatase 48. Urinalysis is not available at this time. Microbiology with pending blood cultures and urine culture. IMAGING: Chest, chest x-ray with Port-A-Cath and nodular density in lungs, which correspond to the metastatic disease problem. ASSESSMENT: 1. T3 locally invasive breast cancer with now what appears to be lung metastasis and recent bleeding after initiation of anticoagulation for left upper extremity deep vein thrombosis. This has led to discontinuation of the anticoagulants. 2. Fever. DISCUSSION: The differential diagnosis includes complications related to the device or the port with bacterial or fungal colonization versus sepsis from the skin lesion or the inflammatory repercussions of local invasive breast cancer with areas of necrosis. This type of malignancy frequently leads to inflammatory changes with fever that sometimes may be mimic sepsis. The procedure now will be treat assuming an infectious process, monitor blood cultures. If all the results are negative, then I would consider ascribing the changes to the aggressive breast cancer and then consider administration of chemotherapy as the next treatment option. Evidently , if the blood cultures turn positive, then we will have to turn our attention to the port. The lung nodules are more likely to represent metastatic disease, but conceivably could represent also complications of infection with hematogenous pneumonitis, although that is less likely. Job ID: [id number] MTDD
[2018-11-26 23:02] LABS: Lactic Acid 1.6 mmol/L (0.5-2.2)
[2018-11-27] MEDS: Piperacillin/Tazobactam 2.25 GM in Sodium Chloride 0.9% 100 ML IVPB SCH ×4 (00:06→17:39)
--- NOTE | 2018-11-27 00:19 | CON ---
DATE OF CONSULTATION: 11/26/2018 SERVICE: Pulmonary Medicine. HISTORY OF PRESENT ILLNESS: The patient is a 73-year-old female with past medical history significant for metastatic breast cancer. She is in the initial diagnostic phase of this. Apparently, she had a recent biopsy and subsequent I and D which got packed. She never went back to Dr. Augustine's office after the packing was placed and they do not know what happened to it and they think it could have fallen out. She recently underwent a punch biopsy on November 22. She also had a MediPort placed at that time. She presented to the emergency department on November 25 with complaints of feeling weak, and bleeding from the chest mass. She was also having some purulent material coming out of this lesion. In the emergency department, she was discovered to have very frequent fevers. She was placed on broad-spectrum antibiotics. Earlier today, she had a low blood pressure event, was subsequently brought to the [facility]. She was given a bolus of fluid and her blood pressures firmed up very nicely. She denies any nausea, vomiting, or diarrhea. She has a decent appetite. She does not have any hot, red, swollen joints. PAST MEDICAL HISTORY: 1. Breast cancer, stage IV, likely. 2. Chronic kidney disease. 3. Hypertension. PAST SURGICAL HISTORY: 1. Appendectomy. 2. Punch biopsy of the left breast. 3. Cholecystectomy. 4. MediPort placement. 5. Back surgery. FAMILY HISTORY: Noncontributory. SOCIAL HISTORY: She smokes a half pack of cigarettes on a daily basis and has done so for greater than 50 years. Denies any alcohol or illicit drugs. She has no exposure to chemicals, dust, asbestos, or tuberculosis. ALLERGIES: NO KNOWN DRUG ALLERGIES. MEDICATIONS: List of her inpatient medications was reviewed. No specific updates were made at this time. REVIEW OF SYSTEMS: General, head, ears, eyes, nose, throat, cardiovascular, respiratory, GI, , musculoskeletal, neurologic, and skin are negative except as mentioned in HPI. PHYSICAL EXAMINATION: VITAL SIGNS: Afebrile, currently. She has a T-max of 101.1 and has had persistent fevers throughout this hospital stay. Pulse 108, blood pressure 102/47, respirations 14, and saturation 93%, currently on room air. GENERAL: The patient is awake and alert, in no apparent distress. LUNGS: Very good air entry. No prolonged expiratory phase or wheezing is appreciated. HEART: Normal rate, regular. ABDOMEN: Soft, nontender, nondistended. Bowel sounds are positive. MUSCULOSKELETAL: No cyanosis or clubbing. There is no pitting in bilateral lower extremities. NEUROLOGIC: Nonfocal. LABORATORY DATA: WBC 7.1, hemoglobin 8.0, platelets 184,000. INR 1.7. PH 7.34 , pCO2 24, PO2 57. Creatinine 2.10 and downtrending, BUN 28. Basic metabolic profile is otherwise unremarkable. Calcium 7.1, lactate 1.7. Liver function studies were previously unremarkable. Urinalysis is unremarkable. Urine culture and blood culture x2 were last performed on November 15. At that point, they were unremarkable. IMAGIN. CT of the chest, abdomen, and pelvis demonstrates enlarging fungating mass of the left breast. She also has enlarging bilateral pulmonary nodules, consistent with widely metastatic disease. 2. Chest x-ray demonstrates bilateral pulmonary nodules. ASSESSMENT: 1. Severe sepsis. 2. Left breast abscess, suspected. 3. Breast cancer, widely metastatic. 4. Acute kidney injury on chronic kidney disease, stage 3. DISCUSSION AND PLAN: I am going to put a surgical consultation for Dr. Augustine to come visit with this patient. The CT scan appears to me as though she has multiple loculated collections of fluid. This thing has also had a rapid increase in size. I am concerned that this breast cancer could be superinfected. If that is the case, surgical I and D may be indicated. She will stay in the ICU until her blood pressure firms up. I agree with current antibiotic selection. The patient's end-organ damage seems to be clearing suggesting that we do not have to get aggressive with central line placement or pressors. Pulmonary/Critical Care will continue to follow along. 70 minutes have been devoted to this patient in various activities. I personally reviewed all imaging studies and laboratory data noted within this document. For fifty percent of this time, I was interacting with the patient at the bedside or coordinating care with the care team. For the remainder of the time I was immediately available to the patient in the hospital unit. Job ID: [id number] MTDD
[2018-11-27] MEDS: HYDROcodone/Acetaminophen 7.5/325 mg Tablet PO PRN ×2 (04:49→21:23)
[2018-11-27 06:58] LABS: Mean Corpuscular HGB CONC 34.2 g/dL (32.0-36.0); Mean Corpuscular Hemoglobin 28.8 pg (27.0-31.0); Mean Corpuscular Volume 84.2 fL (78.0-98.0); Mean Platelet Volume 8.7 fL (7.4-10.4); Platelet Count 151 thou/uL (130-400); RBC Distribution Width 16.1 % (11.5-14.5); Red Blood Cell (RBC) Count 2.78 mill/uL (4.20-5.40)
[2018-11-27 07:13] LABS: Anion Gap 12 mmol/L (10-20); BUN (Urea Nitrogen) 31 mg/dL (9.8-20.1); Calc. Creatinine Clearance 28 mL/min (70-130); Calcium 6.8 mg/dL (7.8-10.44); Carbon Dioxide 16 mmol/L (23-31); Chloride 113 mmol/L (98-107); Estimated GFR-MDRD 27; Glucose 75 mg/dL (83-110); Potassium 3.8 mmol/L (3.5-5.1); Sodium 137 mmol/L (136-145)
[2018-11-27 08:19] LABS: Band 22 % (5-11); Eosinophils 2 % (0-10); Lymphocytes 4 % (21-51); MDiff Complete? YES; Neutrophil 69 % (42-75); Platelet Morphology Comment Appears Adequate; Polychromasia SLIGHT = 2-3 cells (100X) (0-2/hpf); Reactive Lymphocytes 2 % (0-10)
[2018-11-27] MEDS: Bisoprolol Fumarate 5 MG TAB PO SCH (09:16)
[2018-11-27] MEDS: cloNIDine 0.1 MG TAB PO SCH ×2 (09:16→21:26)
[2018-11-27] MEDS ORDERED: Lidocaine 1% w/Epinephrine 1:100K 20 ML VIAL FS SCH (09:45)
[2018-11-27] MEDS: Sodium Bicarbonate 150 MEQ in Dextrose 5% in Water 1,000 ML IV SCH (10:57)
[2018-11-27] MEDS: Ferrous Sulfate 325 MG TAB PO SCH ×2 (10:58→16:38)
[2018-11-27] MEDS: Atorvastatin Calcium 40 MG TAB PO SCH (10:59)
[2018-11-27] MEDS: Calcium Gluconate 4.6 MEQ in Sodium Chloride 0.9% 100 ML IVPB SCH ×2 (11:00→14:23)
[2018-11-27] MEDS: Cholecalciferol (Vitamin D3) 400 UNITS TAB PO SCH (11:01)
--- NOTE | 2018-11-27 11:14 | PRG ---
DATE OF SERVICE: 11/27/2018 SERVICE: Pulmonary Medicine. INTERVAL HISTORY: The patient is doing fine from a respiratory standpoint. She remains on room air. Her blood pressures have firmed up very nicely. She got a unit of blood overnight. Otherwise, there has been no interval change to her condition. PHYSICAL EXAMINATION: VITAL SIGNS: Afebrile currently with a T-max overnight of 102.9. Pulse 100, blood pressure 86/51, respirations 6, and saturation 95%, currently on room air. GENERAL: The patient is awake and alert, in no apparent distress. LUNGS: Decent air entry. No prolonged expiratory phase or wheezing appreciated. Minimal dependent crackles are noted. HEART: Normal rate, regular. ABDOMEN: Soft, nontender, and nondistended. Bowel sounds are positive. MUSCULOSKELETAL: No cyanosis or clubbing. There is 1 to 2+ pitting edema in the bilateral lower extremities. NEUROLOGIC: Grossly nonfocal. LABORATORY DATA: WBC 10.0, hemoglobin 8.0, platelets 151,000. Creatinine is downtrending to 2.16, BUN 31. Basic metabolic profile is otherwise unremarkable. Calcium 6.8. All culture results including three blood cultures are negative to date. ASSESSMENT: 1. Severe sepsis. 2. Left breast abscess, possible. 3. Acute blood loss anemia secondary to bleeding left breast mass. 4. Breast cancer, widely metastatic. 5. Acute kidney injury on chronic kidney disease, 3, near baseline. DISCUSSION AND PLAN: We will continue supportive care through time. I will repeat hemoglobin this afternoon. I am going to initiate a bicarb drip because she has a significant non-anion gap metabolic acidosis. Once this is corrected, we will get rid of the bicarb drip and continue her p.o. bicarb supplement. She will remain in the ICU until her blood pressure firms up a touch. Consultation with Surgery is currently pending. These lung lesions are not infectious. They are consistent with "borrero ball" lesions, characteristic of hematogenous spread of widely metastatic process. Job ID: [id number] [facility]
[2018-11-27] MEDS: Sodium Bicarbonate Tab 325 MG TAB PO SCH ×3 (13:23→21:23)
--- NOTE | 2018-11-27 15:09 | PDOC.OP ---
Operative Note - Operative Note Operative Note: PROCEDURE: Ultrasound-guided aspiration of left breast fluid collection SURGEON: Bret Augustine M.D. DATE: 11/27/2018 PREOPERATIVE DIAGNOSIS: Fever of unknown origin, with left breast fluid collection POSTOPERATIVE DIAGNOSIS: Fever of unknown origin, with left breast fluid collection HISTORY: Patient well known to me from previous admission with rapidly progressing metastatic inflammatory breast cancer. She came in because of bleeding from her wound which was fairly profuse. She was on anticoagulation for left arm DVT at the time which has since been halted and the bleeding has stopped as well. She states that it was bleeding from around the margin of the wound not from deep in the axilla. No active bleeding of the wound today. Central necrotic tissue is sloughing with dressing changes. No exposed vessels. She had an episode of fevers and chills and was transferred to the critical care unit for close monitoring. Her blood pressure was low but she did not require pressors and her fever has improved. Her cultures are thus far negative and Dr. Arcos states that this may be tumor fever rather than an infectious fever. Her instructor of nursing was concerned about the possibility of superinfection of the necrotic liquefied portion of her breast tumor. Patient is leaning toward hospice, so I did not want to do a surgical drainage if avoidable, so I recommended aspiration under ultrasound guidance. Patient was agreeable with this plan. She understands that if infection is found then open drainage may be necessary. PROCEDURE IN DETAIL: After informed consent was obtained, an ultrasound was obtained and the anechoic, blood flow-less portion of the left breast mass was stabilized under the ultrasound probe. The skin was cleansed with alcohol and local anesthesia infused. An 20-gauge needle was advanced into the anechoic fluid collection which was aspirated. Serous sanguinous fluid was obtained. This was not cloudy and there was no odor. Approximately 110 mL's were aspirated , but the fluid collection could not be completely drained even though the needle tip was confirmed to be within the fluid collection. It was felt that the surrounding cancerous tissues were too thick and noncompliant to collapse and allow the fluid collection to be completely drained. It was estimated that about three quarters of the fluid collection was drained based on decrease the size of the cavity. The needle was withdrawn and the fluid sent for Gram stain and culture. The patient tolerated the procedure well. Estimated blood loss was minimal. There were no complications. Specimen is left breast fluid for Gram stain and culture.
[2018-11-27 15:21] LABS: Vancomycin, Random 12.5 ug/mL (See Comment)
[2018-11-27] MEDS: Vancomycin HCl 1 GM in Premix Bag 1 BAG IVPB SCH (16:37)
[2018-11-27] MEDS: Famotidine 20 MG TAB PO SCH (17:40)
[2018-11-27] MEDS: Sodium Chloride 0.9% 1,000 ML IV SCH (17:40)
--- NOTE | 2018-11-27 18:05 | PDOC.HOSPP ---
- Subjective Encounter Date: 11/27/18 Subjective: feels better today. - Objective Vital Signs & Weight: Vital Signs (12 hours) BP 11/27/18 09:16 91/45 L Weight Admit Weight 170 lb 3.2 oz Weight 171 lb 4.8 oz Most Recent Monitor Data Heart Rate from ECG 100 NIBP 86/51 NIBP BP-Mean 62 Respiration from ECG 6 SpO2 95 I&O: 11/26/18 11/27/18 11/28/18 06:59 06:59 06:59 Intake Total 2900 2384.8 Output Total 300 550 Balance 2600 1834.8 Result Diagrams: 11/27/18 06:20 11/27/18 06:20 Hospitalist ROS - Medication Medications: Active Medications Generic Name Dose Route Start Last Admin Trade Name Freq PRN Reason Stop Dose Admin Acetaminophen 650 mg 11/25/18 12:44 11/26/18 16:56 Tylenol PO 650 mg Q4H PRN Administration Headache/Fever/Mild Pain (1-3) Hydrocodone Bitart/Acetaminophen 1 tab 11/25/18 12:44 11/27/18 04:49 [place] 7.5/325 PO 1 tab Q4H PRN Administration Moderate Pain (4-6) Atorvastatin Calcium 40 mg 11/26/18 09:00 11/27/18 10:59 Lipitor PO 40 mg QAM MARGOTH Administration Bisoprolol Fumarate 10 mg 11/26/18 09:00 11/27/18 09:16 Zebeta PO Not Given DAILY MARGOTH Cholecalciferol 200 units 11/26/18 09:00 11/27/18 11:01 Vitamin D PO 200 units DAILY MARGOTH Administration Clonidine 0.1 mg 11/25/18 21:00 11/27/18 09:16 Catapres PO Not Given BID MARGOTH Fentanyl 25 mcg 11/26/18 09:00 11/26/18 09:41 Duragesic TD 25 mcg Q3D MARGOTH Administration Ferrous Sulfate 325 mg 11/26/18 08:00 11/27/18 16:38 Feosol PO 325 mg BID-WM MARGOTH Administration Piperacillin Sod/Tazobactam 100 mls @ 200 mls/hr 11/26/18 12:00 11/27/18 17: 39 Sod 2.25 gm/ Sodium Chloride IVPB 100 mls Q6HR MARGOTH Administration Vancomycin HCl 1 gm/ Device 200 mls @ 200 mls/hr 11/26/18 16:00 11/27/18 16: 37 IVPB 200 mls Q24HR MARGOTH Administration Sodium Bicarbonate 150 meq/ 1,150 mls @ 75 mls/hr 11/27/18 08:15 11/27/18 10: 57 Dextrose/Water IV 1,150 mls .[id number] MARGOTH Administration Ondansetron HCl 4 mg 11/25/18 12:44 11/26/18 22:44 Zofran IVP 4 mg Q6H PRN Administration Nausea/Vomiting Pantoprazole Sodium 40 mg 11/26/18 09:00 11/27/18 10:59 Protonix PO 40 mg DAILY MARGOTH Administration Sodium Bicarbonate 650 mg 11/25/18 21:00 11/27/18 16:38 Bicarbonate, Sodium PO 650 mg TID MARGOTH Administration Trazodone HCl 50 mg 11/25/18 21:00 11/26/18 21:00 Desyrel PO Not Given HS MARGOTH - Exam General Appearance: NAD, awake alert Eye: PERRL, anicteric sclera ENT: normocephalic atraumatic, no oropharyngeal lesions, moist mucosa Neck: supple, symmetric, no JVD, no thyromegaly, no lymphadenopathy, no carotid bruit Heart: RRR, no murmur, no gallops, no rubs, normal peripheral pulses Respiratory: CTAB, no wheezes, no rales, no ronchi, normal chest expansion, no tachypnea, normal percussion Gastrointestinal: soft, non-tender, non-distended, normal bowel sounds, no palpable masses, no hepatomegaly, no splenomegaly, no bruit Hosp A/P (1) Acute kidney injury Code(s): N17.9 - ACUTE KIDNEY FAILURE, UNSPECIFIED Status: Acute (2) Deep vein thrombosis, upper left extremity Code(s): I82.622 - ACUTE EMBOLISM AND THROMBOSIS OF DEEP VEINS OF L UP EXTREM Status: Chronic (3) Hypertension Code(s): I10 - ESSENTIAL (PRIMARY) HYPERTENSION Status: Chronic (4) Anemia Code(s): D64.9 - ANEMIA, UNSPECIFIED Status: Acute (5) Breast abscess of female Code(s): N61.1 - ABSCESS OF THE BREAST AND NIPPLE Status: Acute (6) CKD (chronic kidney disease) stage 3, GFR 30-59 ml/min Code(s): N18.3 - CHRONIC KIDNEY DISEASE, STAGE 3 (MODERATE) Status: Chronic - Plan Patient is much improved compared from yesterday, Pulmonary and Surgery input and actions are appreciated. ID---Possible sepsis source could be her wound, I will continue her IV ATB awaiting cultures. Renal---metabolic acidosis on bicarb drip. Onco---follow onco recommendation, patient is still undecided wether she wants to start Chemo
[2018-11-27] MEDS: traZODone HCl 50 MG TAB PO SCH (21:26)
--- NOTE | 2018-11-27 21:55 | CON ---
DATE OF CONSULTATION: REASON FOR CONSULTATION: Breast cancer. 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 The patient was just recently in the hospital for worsening breast pain and diagnosed with breast cancer with metastatic disease to the lungs. She began having worsening bleeding from the wound in her breast with continued swelling, pain and fever. The patient has had drainage of bloody fluid today by Dr. Augustine, who stated that there was no pus and the fluid did not appear to be infected. She had a CT chest, abdomen, and pelvis without contrast, which showed an enlarging inflammatory left breast mass measuring 14.5 x 13 cm and lung nodule measuring 1.8 cm, which had been 1.2 cm 2 weeks prior. I have discussed potential treatment options with the patient and she is undecided if she would like to seek any cancer directed therapy such as chemotherapy. REVIEW OF SYSTEMS: Ten-point review of systems negative except as per HPI. PAST MEDICAL HISTORY: Hypertension, breast cancer, and CKD. PAST SURGICAL HISTORY: MediPort, cholecystectomy, breast biopsy, appendectomy, breast drainage. FAMILY HISTORY: Cancer. SOCIAL HISTORY: Current tobacco smoker. No alcohol. PHYSICAL EXAMINATION: VITAL SIGNS: T-max 102.9 yesterday, currently 98.9, blood pressure 91/45, saturating 100% on room air, pulse 100. GENERAL APPEARANCE: The patient is sitting up, in no acute distress. RESPIRATIONS: Clear to auscultation. CARDIAC: S1 and S2. Regular rhythm and rate. Mildly tachycardic. GASTROINTESTINAL: Soft, nondistended, and nontender. EXTREMITIES: No edema. NEUROLOGIC: Cranial nerves 2 through 12 grossly intact. BREASTS: Large palpable visible left upper chest breast mass with fungating open wounds with drainage and left upper extremity swelling. LABORATORY DATA: White blood cells 10, hemoglobin 8.0, platelets 151. Sodium 137, potassium 3.8, BUN 31, creatinine 2.16. Lactic acid 2.5 down to 1.2 currently. IMAGING DATA: CT chest, abdomen, and pelvis shows scattered pulmonary nodules, increased from prior, and a large left breast mass. ASSESSMENT AND PLAN: A 73-year-old female with metastatic triple negative breast cancer with metastasis to lung, presenting with fever, worsening pain of the breast and drainage. The patient has extensive pulmonary metastatic disease that is rapidly growing in only the last 2 weeks and multiple nonhealing breast wounds. Dr. Augustine has done debridement and drainage of fluid in the breast and is not a candidate for mastectomy or other type of breast surgery. I discussed the option of chemotherapy with her as she is triple negative and hormone therapy is not an option. Immune therapy is a potential option, though this must be combined with chemotherapy and she is very hesitant for any chemotherapy treatments at this time. She initially was considering it and had a MediPort placed, but now she is reconsidering. She wanted time to think about it, so we will discuss again tomorrow and if she does not want to move forward with any chemotherapy treatments, then I would recommend hospice evaluation for her as her disease is rapidly progressive. Job ID: [id number]
[2018-11-28] MEDS: Piperacillin/Tazobactam 2.25 GM in Sodium Chloride 0.9% 100 ML IVPB SCH ×4 (00:03→17:44)
[2018-11-28] MEDS: Sodium Bicarbonate 150 MEQ in Dextrose 5% in Water 1,000 ML IV SCH (01:34)
[2018-11-28] MEDS: HYDROcodone/Acetaminophen 7.5/325 mg Tablet PO PRN (01:35)
[2018-11-28 04:42] LABS: #Eosinphils 0.3 thou/uL (0.0-0.7); #Lymphocytes 0.6 thou/uL (1.20-3.40); #Monocytes 0.3 thou/uL (0.11-0.59); #Neutrophils 4.3 thou/uL (1.40-6.50); %Basophils 0.2 % (0.0-1.0); %Eosinophils 6.1 % (0.0-10.0); %Lymphocytes 10.1 % (21.0-51.0); %Neutrophils 78.6 % (42.0-75.0); Hemoglobin 7.4 g/dL (12.0-16.0); Mean Corpuscular HGB CONC 33.2 g/dL (32.0-36.0); Mean Corpuscular Hemoglobin 27.8 pg (27.0-31.0); Mean Corpuscular Volume 83.8 fL (78.0-98.0); Mean Platelet Volume 8.5 fL (7.4-10.4); Platelet Count 146 thou/uL (130-400); RBC Distribution Width 15.9 % (11.5-14.5); Red Blood Cell (RBC) Count 2.68 mill/uL (4.20-5.40); White Blood Cell (WBC) Count 5.4 thou/uL (4.8-10.8)
[2018-11-28 04:53] LABS: Anion Gap 9 mmol/L (10-20); BUN (Urea Nitrogen) 29 mg/dL (9.8-20.1); Calc. Creatinine Clearance 32 mL/min (70-130); Calcium 6.8 mg/dL (7.8-10.44); Carbon Dioxide 22 mmol/L (23-31); Chloride 110 mmol/L (98-107); Estimated GFR-MDRD 32; Glucose 93 mg/dL (83-110); Potassium 3.4 mmol/L (3.5-5.1); Sodium 138 mmol/L (136-145)
[2018-11-28] MEDS: cloNIDine 0.1 MG TAB PO SCH (07:41)
[2018-11-28] MEDS: Bisoprolol Fumarate 5 MG TAB PO SCH (07:41)
[2018-11-28] MEDS: Atorvastatin Calcium 40 MG TAB PO SCH (08:35)
[2018-11-28] MEDS: Cholecalciferol (Vitamin D3) 400 UNITS TAB PO SCH (08:35)
[2018-11-28] MEDS: Sodium Bicarbonate Tab 325 MG TAB PO SCH ×3 (08:36→20:34)
[2018-11-28] MEDS: Ferrous Sulfate 325 MG TAB PO SCH ×2 (08:36→17:43)
--- NOTE | 2018-11-28 11:14 | PDOC.MOPN ---
Interval History: Patient has no complaints. Doesn't want to talk about "cancer". Wishes everyone would stop saying that word. No decision about treatment. - Vital Signs Vital Signs: Vital Signs (12 hours) Temp BP Pulse Ox 11/28/18 07:41 96/53 L 11/28/18 07:38 99 11/28/18 04:00 98.7 F 11/28/18 00:00 99.2 F Weight Admit Weight 170 lb 3.2 oz Weight 172 lb 4.8 oz Most Recent Monitor Data Heart Rate from ECG 92 NIBP 96/55 NIBP BP-Mean 68 Respiration from ECG 14 SpO2 100 - Physical Exam General: Alert, Oriented x3, No acute distress HEENT: Atraumatic, PERRLA, EOMI, Mucous membr. moist/pink Lungs: Clear to auscultation, Normal air movement Cardiovascular: Regular rate, Normal S1, Normal S2, No murmurs, Gallops, Rubs Abdomen: Normal bowel sounds, Soft, No tenderness, No hepatospenomegaly, No masses Extremities: No clubbing, No cyanosis, No edema, Normal pulses, No tenderness/ swelling Skin: No rashes (left breast mass) Neurological: Normal speech Psych/Mental Status: Mental status NL - Labs Result Diagrams: 11/28/18 04:20 11/28/18 04:20 Lab results: Laboratory Results - last 24 hr 11/28/18 04:20: WBC 5.4, RBC 2.68 L, Hgb 7.4 L, Hct 22.4 L, MCV 83.8, MCH 27.8, MCHC 33.2, RDW 15.9 H, Plt Count 146, MPV 8.5, Neutrophils % 78.6 H, Neutrophils % (Manual) Not Reportable, Lymphocytes % 10.1 L, Monocytes % 5.0, Eosinophils % 6.1, Basophils % 0.2, Neutrophils # 4.3, Lymphocytes # 0.6 L, Monocytes # 0.3, Eosinophils # 0.3, Basophils # 0.0 11/28/18 04:20: Sodium 138, Potassium 3.4 L, Chloride 110 H, Carbon Dioxide 22 L , Anion Gap 9 L, BUN 29 H, Creatinine 1.86 H, Estimated GFR (MDRD) 32, Glucose 93, Calcium 6.8 L, Magnesium 1.0 L 11/27/18 14:53: Random Vancomycin 12.5 Status: lab reviewed by me A/P - Problem (1) Deep vein thrombosis, upper left extremity Current Visit: Yes Code(s): I82.622 - ACUTE EMBOLISM AND THROMBOSIS OF DEEP VEINS OF L UP EXTREM Status: Chronic (2) Breast neoplasm Current Visit: No Status: Chronic - Plan Plan: No decision regarding treatment. Explain to patient and family that mass with continue to grow. She will notify our clinic if wishes to pursue treatment. Will Sign-off
[2018-11-28] MEDS ORDERED: Sodium Bicarbonate 150 MEQ in Dextrose 5% in Water 1,000 ML IV SCH (12:43)
[2018-11-28] MEDS ORDERED: Magnesium Sulfate 4 GM in Sodium Chloride 0.9% 250 ML 250 ML IVPB SCH (13:00)
[2018-11-28] MEDS ORDERED: Potassium Chloride 20 MEQ TAB PO SCH (13:00)
--- NOTE | 2018-11-28 13:02 | PRG ---
DATE OF SERVICE: 11/28/2018 SERVICE: Pulmonary Medicine. INTERVAL HISTORY: The patient is doing fine from respiratory standpoint. She remains on room air. She has no difficulty with breathing. Otherwise, there has been no interval change to her condition. Blood pressures have firmed up very nicely. PHYSICAL EXAMINATION: VITAL SIGNS: Afebrile, pulse 93, blood pressure 96/53, respirations 18, saturation 97% on room air. GENERAL: The patient is awake and alert, in no apparent distress. LUNGS: Very good air entry. There are minimal dependent crackles present. No prolonged expiratory phase or wheezing is appreciated. HEART: Normal rate. Regular. ABDOMEN: Soft, nontender, and nondistended. Bowel sounds are positive. MUSCULOSKELETAL: No cyanosis or clubbing. There is 1 to 2+ pitting in the bilateral lower extremities. NEUROLOGIC: Grossly nonfocal. LABORATORY DATA: WBC 5.4, hemoglobin 7.4 and gently downtrending, platelets 146 and stable. INR 1.7. Creatinine has improved to 1.86, bicarb 22, BUN 29, anion gap is normal, potassium 3.4. Magnesium 1.0. Urinalysis is unremarkable. Blood cultures x3 are unremarkable to-date. ASSESSMENT: 1. Severe sepsis, resolving. 2. Left breast cancer with possible abscess formation. 3. Acute blood loss anemia secondary to breast bleed. 4. Acute kidney injury on chronic kidney disease, stage 3, returned to baseline. DISCUSSION AND PLAN: After this liter of fluid, her bicarb drip will be interrupted. She is stable for transition out of the ICU to the surgical unit. Pulmonary/Critical Care will continue to follow along. I will replace her potassium and magnesium today. Job ID: [id number]
[2018-11-28] MEDS: Calcium Gluc 4.6 MEQ/10 ML (100 MG/ML) SLOW IVP SCH ×2 (13:29→17:42)
[2018-11-28] MEDS: Vancomycin HCl 1 GM in Premix Bag 1 BAG IVPB SCH (16:12)
--- NOTE | 2018-11-28 16:21 | PDOC.HOSPP ---
- Subjective Encounter Date: 11/28/18 Subjective: she feels better then yesterday. - Objective Vital Signs & Weight: Vital Signs (12 hours) Temp BP Pulse Ox 11/28/18 12:00 98.4 F 11/28/18 08:00 100 11/28/18 07:41 96/53 L 11/28/18 07:38 99 11/28/18 07:00 98.2 F Weight Admit Weight 170 lb 3.2 oz Weight 172 lb 4.8 oz Most Recent Monitor Data Heart Rate from ECG 98 NIBP 112/61 NIBP BP-Mean 78 Respiration from ECG 15 SpO2 98 I&O: 11/27/18 11/28/18 11/29/18 06:59 06:59 06:59 Intake Total 2384.8 2726 358 Output Total 550 820 275 Balance 1834.8 1906 83 Result Diagrams: 11/28/18 04:20 11/28/18 04:20 Hospitalist ROS - Medication Medications: Active Medications Generic Name Dose Route Start Last Admin Trade Name Freq PRN Reason Stop Dose Admin Acetaminophen 650 mg 11/25/18 12:44 11/26/18 16:56 Tylenol PO 650 mg Q4H PRN Administration Headache/Fever/Mild Pain (1-3) Hydrocodone Bitart/Acetaminophen 1 tab 11/25/18 12:44 11/28/18 01:35 [place] 7.5/325 PO 1 tab Q4H PRN Administration Moderate Pain (4-6) Atorvastatin Calcium 40 mg 11/26/18 09:00 11/28/18 08:35 Lipitor PO 40 mg QAM MARGOTH Administration Bisoprolol Fumarate 10 mg 11/26/18 09:00 11/28/18 07:41 Zebeta PO Not Given DAILY [facility] Calcium Gluconate 4.6 meq 11/28/18 13:00 11/28/18 13:29 Calcium Gluconate SLOW IVP 11/28/18 17:01 4.6 meq Q4HR MARGOTH Administration Cholecalciferol 200 units 11/26/18 09:00 11/28/18 08:35 Vitamin D PO 200 units DAILY [facility] Administration Fentanyl 25 mcg 11/26/18 09:00 11/26/18 09:41 Duragesic TD 25 mcg Q3D MARGOTH Administration Ferrous Sulfate 325 mg 11/26/18 08:00 11/28/18 08:36 Feosol PO 325 mg BID-WM MARGOTH Administration Piperacillin Sod/Tazobactam 100 mls @ 200 mls/hr 11/26/18 12:00 11/28/18 11: 48 Sod 2.25 gm/ Sodium Chloride IVPB 100 mls Q6HR MARGOTH Administration Vancomycin HCl 1 gm/ Device 200 mls @ 200 mls/hr 11/26/18 16:00 11/28/18 16: 12 IVPB 200 mls Q24HR MARGOTH Administration Sodium Bicarbonate 150 meq/ 1,150 mls @ 75 mls/hr 11/28/18 12:43 11/28/18 14: 34 Dextrose/Water IV 11/28/18 18:00 1,150 mls .[id number] MARGOTH Administration Ondansetron HCl 4 mg 11/25/18 12:44 11/26/18 22:44 Zofran IVP 4 mg Q6H PRN Administration Nausea/Vomiting Pantoprazole Sodium 40 mg 11/26/18 09:00 11/28/18 08:37 Protonix PO 40 mg DAILY MARGOTH Administration Sodium Bicarbonate 650 mg 11/25/18 21:00 11/28/18 14:31 Bicarbonate, Sodium PO 650 mg TID MARGOTH Administration Trazodone HCl 50 mg 11/25/18 21:00 11/27/18 21:26 Desyrel PO Not Given HS MARGOTH - Exam General Appearance: NAD, awake alert Eye: PERRL, anicteric sclera ENT: normocephalic atraumatic, no oropharyngeal lesions, moist mucosa Neck: supple, symmetric, no JVD, no thyromegaly, no lymphadenopathy, no carotid bruit Heart: RRR, no murmur, no gallops, no rubs, normal peripheral pulses Respiratory: CTAB, no wheezes, no rales, no ronchi, normal chest expansion, no tachypnea, normal percussion Gastrointestinal: soft, non-tender, non-distended, normal bowel sounds, no palpable masses, no hepatomegaly, no splenomegaly, no bruit Extremities: no cyanosis, no clubbing, no edema Hosp A/P (1) Acute kidney injury Code(s): N17.9 - ACUTE KIDNEY FAILURE, UNSPECIFIED Status: Acute (2) Deep vein thrombosis, upper left extremity Code(s): I82.622 - ACUTE EMBOLISM AND THROMBOSIS OF DEEP VEINS OF L UP EXTREM Status: Chronic (3) Hypertension Code(s): I10 - ESSENTIAL (PRIMARY) HYPERTENSION Status: Chronic (4) Anemia Code(s): D64.9 - ANEMIA, UNSPECIFIED Status: Acute (5) Breast abscess of female Code(s): N61.1 - ABSCESS OF THE BREAST AND NIPPLE Status: Acute (6) CKD (chronic kidney disease) stage 3, GFR 30-59 ml/min Code(s): N18.3 - CHRONIC KIDNEY DISEASE, STAGE 3 (MODERATE) Status: Chronic - Plan Patient is much improved compared from yesterday, Pulmonary and Surgery input and actions are appreciated. ID---Possible sepsis source could be her wound, I will continue her IV ATB awaiting cultures. Renal---metabolic acidosis on bicarb drip and will be stopped tonight. lytes are being corrected. Onco---patient is still undecided wether she wants to start Chemo, onco signed off.
--- NOTE | 2018-11-28 16:34 | EKG ---
Test Reason : Blood Pressure : / mmHG Vent. Rate : 128 BPM Atrial Rate : 128 BPM P-R Int : 118 ms QRS Dur : 056 ms QT Int : 276 ms P-R-T Axes : 057 022 032 degrees QTc Int : 402 ms Sinus tachycardia Low voltage QRS Cannot rule out Anterior infarct , age undetermined Abnormal ECG Confirmed by MARILYN MORGAN ([id number]) on 11/28/2018 4:34:29 PM Referred By: RENNY Confirmed By:MARILYN MORGAN
--- NOTE | 2018-11-28 16:51 | EKG ---
Test Reason : CODE GREEN Blood Pressure : / mmHG Vent. Rate : 146 BPM Atrial Rate : 146 BPM P-R Int : 122 ms QRS Dur : 046 ms QT Int : 318 ms P-R-T Axes : 061 054 075 degrees QTc Int : 495 ms Sinus tachycardia Low voltage QRS Nonspecific T wave abnormality Abnormal ECG Confirmed by MARILYN MORGAN ([id number]) on 11/28/2018 4:51:25 PM Referred By: ISIDORO Confirmed By:MARILYN MORGAN
--- NOTE | 2018-11-28 16:52 | EKG ---
Test Reason : AFTER CODE GREEN Blood Pressure : / mmHG Vent. Rate : 125 BPM Atrial Rate : 125 BPM P-R Int : 000 ms QRS Dur : 052 ms QT Int : 292 ms P-R-T Axes : 000 052 071 degrees QTc Int : 421 ms Sinus tachycardia Low voltage QRS Borderline ECG Confirmed by MARILYN MORGAN ([id number]) on 11/28/2018 4:52:05 PM Referred By: RENNY Confirmed By:MARILYN MORGAN
[2018-11-28] MEDS: traZODone HCl 50 MG TAB PO SCH (22:08)
[2018-11-29] MEDS: Piperacillin/Tazobactam 2.25 GM in Sodium Chloride 0.9% 100 ML IVPB SCH ×4 (00:18→17:06)
[2018-11-29 05:19] LABS: Hemoglobin 7.8 g/dL (12.0-16.0)
[2018-11-29 05:40] LABS: Phosphorus 2.4 mg/dL (2.3-4.7)
[2018-11-29 05:46] LABS: Anion Gap 9 mmol/L (10-20); BUN (Urea Nitrogen) 24 mg/dL (9.8-20.1); Calc. Creatinine Clearance 45 mL/min (70-130); Calcium 7.2 mg/dL (7.8-10.44); Carbon Dioxide 24 mmol/L (23-31); Chloride 110 mmol/L (98-107); Estimated GFR-MDRD 42; Glucose 84 mg/dL (83-110); Magnesium 1.8 mg/dL (1.6-2.6); Potassium 3.9 mmol/L (3.5-5.1); Sodium 139 mmol/L (136-145)
[2018-11-29] MEDS ORDERED: Magnesium 2 GM/50 ML 2 GM in Premix Bag 1 BAG IVPB SCH (08:45)
[2018-11-29] MEDS: Ferrous Sulfate 325 MG TAB PO SCH ×2 (08:49→16:27)
[2018-11-29] MEDS: Sodium Bicarbonate Tab 325 MG TAB PO SCH ×3 (08:50→20:44)
[2018-11-29] MEDS: Atorvastatin Calcium 40 MG TAB PO SCH (08:50)
[2018-11-29] MEDS: Cholecalciferol (Vitamin D3) 400 UNITS TAB PO SCH (08:50)
[2018-11-29] MEDS ORDERED: Potassium Chloride 20 MEQ TAB PO SCH (10:45)
[2018-11-29] MEDS ORDERED: Furosemide 40 MG/4 ML VIAL SLOW IVP SCH (10:45)
--- NOTE | 2018-11-29 11:00 | PRG ---
DATE OF SERVICE: 11/29/2018 SERVICE: Pulmonary Medicine. INTERVAL HISTORY: The patient is doing really well from respiratory standpoint. Breathing comfortably. No complaints of chest discomfort, nausea, or vomiting. Otherwise, there were no overnight events. Her fever profile has completely resolved. PHYSICAL EXAMINATION: VITAL SIGNS: Afebrile, pulse 92, blood pressure 113/68, respirations 18, and saturation 93%, currently on room air. GENERAL: The patient is awake and alert, in no apparent distress. LUNGS: Decent air entry. No prolonged expiratory phase or wheezing is appreciated. Dependent crackles are noted. HEART: Normal rate and regular. ABDOMEN: Soft, nontender, and nondistended. Bowel sounds are positive. MUSCULOSKELETAL: No cyanosis or clubbing. There is diffuse 2 to 3+ pitting throughout. NEUROLOGIC: Grossly nonfocal. LABORATORY DATA: Hemoglobin 7.8, potassium 3.9, creatinine 1.46, back to baseline. Basic metabolic profile is otherwise unremarkable. Magnesium 1.8, phosphorus 2.4. Blood cultures x3 and body fluid culture all sterile to date. ASSESSMENT: 1. Severe sepsis, resolved. 2. Left breast cancer, aspiration sterile. 3. Acute blood loss anemia secondary to breast bleed. 4. Acute kidney injury on chronic kidney disease, stage 3, returned to baseline. DISCUSSION AND PLAN: The patient remains significantly volume overloaded, now that she has cleared her inflammatory profile, I will give her a dose of Lasix today and tomorrow morning if she happens to still be in house. I will take the Acosta catheter out 6 hours after today's dose of Lasix. I do not believe this fever is stemming from the cancer because the fever profile has resolved. It could have been an inflammatory response to breast hematoma, or true infection. Antibiotic course and duration per Infectious Disease. At this point, she has no further requirements for inpatient Pulmonary or Critical Care opinion, and I will sign off. Please call with additional questions or concerns through time. Job ID: [id number] [facility]
[2018-11-29] MEDS: Bisoprolol Fumarate 5 MG TAB PO SCH (11:25)
[2018-11-29 13:00] VITALS: BMI 32.5
[2018-11-29] MEDS: HYDROcodone/Acetaminophen 7.5/325 mg Tablet PO PRN (15:02)
[2018-11-29 15:19] LABS: Vancomycin, Trough 17.9 ug/mL
[2018-11-29] MEDS: Vancomycin HCl 1 GM in Premix Bag 1 BAG IVPB SCH (16:27)
--- NOTE | 2018-11-29 16:32 | PRG ---
DATE OF SERVICE: 11/29/2018 SUBJECTIVE: Feeling better. Fever seems to have improved. She has no nausea or vomiting. Some chest pain in the area of the mass left chest. No abdominal pain. No diarrhea and has an indwelling Acosta catheter. OBJECTIVE: VITAL SIGNS: Temperature curve shows improvement since November 27 with the last recorded elevation up to 101. Since then, the patient has been within normal limits. BP 120/70, pulse 91, respirations 16, and O2 saturation 96. GENERAL: Awake, alert, and oriented. Does not appear in distress. Asking when she can go home. HEENT: Somewhat pale conjunctivae. Mass located in the left lateral anterior chest. The same as previously noted port in the right subclavian location. LUNGS: Symmetric air entry. HEART: S1 and S2. Regular rate. ABDOMEN: Soft, not distended. EXTREMITIES: Moves extremities equally with 1+ edema. LABORATORY DATA: White cell count start at 24, then is down to 5.4 at this time. Hemoglobin 7.4 and platelets 146. Sodium 139 and creatinine 1.46, which is significant improvement since admission when it was 3.05. There is microbiology with negative blood cultures. The patient had an aspirate done on November 27 and this was an ultrasound-guided aspiration left breast fluid collection. This collection has been submitted for cultures. It had a few wbc's and no organisms, no growth at 24 hours. ASSESSMENT AND DISCUSSION: T3 locally invasive breast cancer, now with what appears to be lung metastasis, recent bleeding after initiation of anticoagulation of left upper extremity deep venous thrombosis and fever, which seems to have resolved at least for the past 2 days. She is still on broad-spectrum antimicrobial coverage and in view of the improvement of neutrophil count with antimicrobials, we have to until proven otherwise assume that she did have true bacterial infectious process involving the soft tissues. These would be skin type of bacteria including Staphylococcus aureus or streptococci. We could conceivably in preparation for discharge planning, transition her to oral medications including Keflex and doxycycline to see if she would remain afebrile. It is not clear what the options for management will be if she would be a candidate for any type of chemotherapy. Job ID: [id number]
--- NOTE | 2018-11-29 18:41 | PDOC.HOSPP ---
- Subjective Encounter Date: 11/29/18 Subjective: feeling well and has no complaints. - Objective Vital Signs & Weight: Vital Signs (12 hours) Temp Pulse Resp BP BP Pulse Ox 11/29/18 16:24 98.6 F 91 16 124/61 95 11/29/18 11:27 98.2 F 91 16 121/70 96 11/29/18 08:35 96 11/29/18 08:33 98.7 F 92 18 113/68 93 L Weight Admit Weight 170 lb 3.2 oz Weight 189 lb 6.4 oz Most Recent Monitor Data Heart Rate from ECG 101 NIBP 107/60 NIBP BP-Mean 75 Respiration from ECG 19 SpO2 99 I&O: 11/28/18 11/29/18 11/30/18 06:59 06:59 06:59 Intake Total 2726 1939 1600 Output Total 831 989 9792 Balance 1906 1179 450 Result Diagrams: 11/29/18 04:50 11/29/18 04:50 Hospitalist ROS - Medication Medications: Active Medications Generic Name Dose Route Start Last Admin Trade Name Freq PRN Reason Stop Dose Admin Acetaminophen 650 mg 11/25/18 12:44 11/26/18 16:56 Tylenol PO 650 mg Q4H PRN Administration Headache/Fever/Mild Pain (1-3) Hydrocodone Bitart/Acetaminophen 1 tab 11/25/18 12:44 11/29/18 15:02 [place] 7.5/325 PO 1 tab Q4H PRN Administration Moderate Pain (4-6) Atorvastatin Calcium 40 mg 11/26/18 09:00 11/29/18 08:50 Lipitor PO 40 mg QAM MARGOTH Administration Bisoprolol Fumarate 10 mg 11/26/18 09:00 11/29/18 11:25 Zebeta PO 10 mg DAILY MARGOTH Administration Cholecalciferol 200 units 11/26/18 09:00 11/29/18 08:50 Vitamin D PO 200 units DAILY MARGOTH Administration Fentanyl 25 mcg 11/26/18 09:00 11/29/18 11:24 Duragesic TD 25 mcg Q3D MARGOTH Administration Ferrous Sulfate 325 mg 11/26/18 08:00 11/29/18 16:27 Feosol PO 325 mg BID-WM MARGOTH Administration Piperacillin Sod/Tazobactam 100 mls @ 200 mls/hr 11/26/18 12:00 11/29/18 17: 06 Sod 2.25 gm/ Sodium Chloride IVPB 100 mls Q6HR MARGOTH Administration Vancomycin HCl 1 gm/ Device 200 mls @ 200 mls/hr 11/26/18 16:00 11/29/18 16: 27 IVPB 200 mls Q24HR MARGOTH Administration Ondansetron HCl 4 mg 11/25/18 12:44 11/26/18 22:44 Zofran IVP 4 mg Q6H PRN Administration Nausea/Vomiting Pantoprazole Sodium 40 mg 11/26/18 09:00 11/29/18 08:50 Protonix PO 40 mg DAILY MARGOTH Administration Sodium Bicarbonate 650 mg 11/25/18 21:00 11/29/18 15:02 Bicarbonate, Sodium PO 650 mg TID MARGOTH Administration Sodium Chloride 10 ml 11/25/18 12:21 11/29/18 11:31 Flush - Normal Saline IVF 10 ml PRN PRN Administration Saline Flush Trazodone HCl 50 mg 11/25/18 21:00 11/28/18 22:08 Desyrel PO 50 mg HS MARGOTH Administration - Exam General Appearance: NAD, awake alert, ill appearing Eye: PERRL, anicteric sclera, scleral icterus ENT: normocephalic atraumatic, no oropharyngeal lesions, moist mucosa, dry oral mucosa Neck: supple, symmetric, no JVD, no thyromegaly, no lymphadenopathy, no carotid bruit, JVD Heart: RRR, no murmur, no gallops, no rubs, normal peripheral pulses, irregular , diminshed peripheral pulses, murmur present, II/IV, III/IV Respiratory: CTAB, no wheezes, no rales, no ronchi, normal chest expansion, no tachypnea, normal percussion, rales, rhonchi, tachypneic, wheezes Skin: normal turgor, no lesions, no rashes, tenting Hosp A/P (1) Acute kidney injury Code(s): N17.9 - ACUTE KIDNEY FAILURE, UNSPECIFIED Status: Acute (2) Deep vein thrombosis, upper left extremity Code(s): I82.622 - ACUTE EMBOLISM AND THROMBOSIS OF DEEP VEINS OF L UP EXTREM Status: Chronic (3) Hypertension Code(s): I10 - ESSENTIAL (PRIMARY) HYPERTENSION Status: Chronic (4) Anemia Code(s): D64.9 - ANEMIA, UNSPECIFIED Status: Acute (5) Breast abscess of female Code(s): N61.1 - ABSCESS OF THE BREAST AND NIPPLE Status: Acute (6) CKD (chronic kidney disease) stage 3, GFR 30-59 ml/min Code(s): N18.3 - CHRONIC KIDNEY DISEASE, STAGE 3 (MODERATE) Status: Chronic - Plan Patient continues to improve. ID---Possible sepsis source could be her wound, will be transitioned to oral antibiotics ( keflex and doxy ) in preparation for discharge--appreciate ID input and help, Renal---stable labs Onco---patient is still undecided wether she wants to start Chemo, onco signed off---Palliative consulted today.
[2018-11-29] MEDS: Doxycycline 100 MG CAP PO SCH (20:44)
[2018-11-29] MEDS: Cephalexin 250 MG/5 ML Oral Suspension PO SCH (20:44)
[2018-11-29] MEDS: traZODone HCl 50 MG TAB PO SCH (20:44)
[2018-11-29] MEDS ORDERED: Cephalexin 250 MG/5 ML Oral Suspension PO SCH (21:00)
[2018-11-30 04:38] LABS: Eosinophils 16 % (0-10); Hemoglobin 7.6 g/dL (12.0-16.0); Lymphocytes 23 % (21-51); MDiff Complete? YES; Mean Corpuscular HGB CONC 33.2 g/dL (32.0-36.0); Mean Corpuscular Hemoglobin 27.8 pg (27.0-31.0); Mean Corpuscular Volume 83.6 fL (78.0-98.0); Mean Platelet Volume 8.7 fL (7.4-10.4); Metamyelocyte 1 % (0-0); Monocytes 13 % (0-10); Neutrophil 47 % (42-75); Platelet Count 194 thou/uL (130-400); Platelet Morphology Comment Appears Adequate; RBC Distribution Width 16.3 % (11.5-14.5); Red Blood Cell (RBC) Count 2.73 mill/uL (4.20-5.40); White Blood Cell (WBC) Count 2.1 thou/uL (4.8-10.8)
[2018-11-30 04:40] LABS: Anion Gap 10 mmol/L (10-20); BUN (Urea Nitrogen) 22 mg/dL (9.8-20.1); Calc. Creatinine Clearance 45 mL/min (70-130); Calcium 7.5 mg/dL (7.8-10.44); Carbon Dioxide 25 mmol/L (23-31); Chloride 109 mmol/L (98-107); Estimated GFR-MDRD 42; Glucose 78 mg/dL (83-110); Potassium 4.3 mmol/L (3.5-5.1); Sodium 140 mmol/L (136-145)
[2018-11-30] MEDS: Sodium Bicarbonate Tab 325 MG TAB PO SCH ×2 (08:45→14:58)
[2018-11-30] MEDS: Bisoprolol Fumarate 5 MG TAB PO SCH (08:45)
[2018-11-30] MEDS: Cholecalciferol (Vitamin D3) 400 UNITS TAB PO SCH (08:46)
[2018-11-30] MEDS: Ferrous Sulfate 325 MG TAB PO SCH (08:46)
[2018-11-30] MEDS: Doxycycline 100 MG CAP PO SCH (08:46)
[2018-11-30] MEDS: Atorvastatin Calcium 40 MG TAB PO SCH (08:46)
[2018-11-30] MEDS ORDERED: Furosemide 40 MG/4 ML VIAL SLOW IVP SCH (09:00)
[2018-11-30] MEDS: Cephalexin 250 MG/5 ML Oral Suspension PO SCH ×2 (09:36→14:58)
[2018-11-30 15:19] VITALS: BP 118/65; TEMP 99
--- NOTE | 2018-11-30 15:29 | PDOC.HOSPP ---
- Subjective Encounter Date: 11/30/18 Encounter Time: 15:27 Subjective: Ms. Mckeon was seen today in follow-up of acute on chronic anemia, and cellulitis. She says she wants to go home. She does not have any new complaints. - Objective Vital Signs & Weight: Vital Signs (12 hours) Temp Pulse Resp BP BP Pulse Ox 11/30/18 15:15 99.0 F 73 16 118/65 95 11/30/18 11:03 98.5 F 75 16 113/69 96 11/30/18 08:30 95 11/30/18 07:16 98.6 F 91 18 123/66 95 11/30/18 04:13 98.9 F 71 18 117/70 93 L Weight Admit Weight 170 lb 3.2 oz Weight 190 lb 8 oz Most Recent Monitor Data Heart Rate from ECG 101 NIBP 107/60 NIBP BP-Mean 75 Respiration from ECG 19 SpO2 99 I&O: 11/29/18 11/30/18 12/01/18 06:59 06:59 06:59 Intake Total 1939 1600 Output Total 760 1150 Balance 1179 450 Result Diagrams: 11/30/18 04:05 11/30/18 04:05 Hospitalist ROS - Medication Medications: Active Medications Generic Name Dose Route Start Last Admin Trade Name Freq PRN Reason Stop Dose Admin Acetaminophen 650 mg 11/25/18 12:44 11/26/18 16:56 Tylenol PO 650 mg Q4H PRN Administration Headache/Fever/Mild Pain (1-3) Hydrocodone Bitart/Acetaminophen 1 tab 11/25/18 12:44 11/29/18 15:02 [place] 7.5/325 PO 1 tab Q4H PRN Administration Moderate Pain (4-6) Atorvastatin Calcium 40 mg 11/26/18 09:00 11/30/18 08:46 Lipitor PO 40 mg QAM MARGOTH Administration Bisoprolol Fumarate 10 mg 11/26/18 09:00 11/30/18 08:45 Zebeta PO 10 mg DAILY MARGOTH Administration Cephalexin 500 mg 11/29/18 21:00 11/30/18 14:58 Keflex PO 500 mg TID MARGOTH Administration Cholecalciferol 200 units 11/26/18 09:00 11/30/18 08:46 Vitamin D PO 200 units DAILY MARGOTH Administration Doxycycline Hyclate 100 mg 11/29/18 21:00 11/30/18 08:46 Vibramycin PO 100 mg BID MARGOTH Administration Fentanyl 25 mcg 11/26/18 09:00 11/29/18 11:24 Duragesic TD 25 mcg Q3D MARGOTH Administration Ferrous Sulfate 325 mg 11/26/18 08:00 11/30/18 08:46 Feosol PO 325 mg BID-WM MARGOTH Administration Ondansetron HCl 4 mg 11/25/18 12:44 11/26/18 22:44 Zofran IVP 4 mg Q6H PRN Administration Nausea/Vomiting Pantoprazole Sodium 40 mg 11/26/18 09:00 11/30/18 08:45 Protonix PO 40 mg DAILY MARGOTH Administration Sodium Bicarbonate 650 mg 11/25/18 21:00 11/30/18 14:58 Bicarbonate, Sodium PO 650 mg TID MARGOTH Administration Sodium Chloride 10 ml 11/25/18 12:21 11/29/18 11:31 Flush - Normal Saline IVF 10 ml PRN PRN Administration Saline Flush Trazodone HCl 50 mg 11/25/18 21:00 11/29/18 20:44 Desyrel PO 50 mg HS MARGOTH Administration - Exam General Appearance: NAD, awake alert Heart: RRR, no murmur, no gallops, no rubs, normal peripheral pulses Respiratory: CTAB, no wheezes, no rales, no ronchi, normal chest expansion, no tachypnea, normal percussion Gastrointestinal: soft, non-tender, non-distended, normal bowel sounds, no palpable masses, no hepatomegaly, no splenomegaly, no bruit Extremities: no cyanosis, no edema Hosp A/P (1) Acute blood loss anemia Code(s): D62 - ACUTE POSTHEMORRHAGIC ANEMIA Status: Acute (2) Acute kidney injury Code(s): N17.9 - ACUTE KIDNEY FAILURE, UNSPECIFIED Status: Acute (3) Deep vein thrombosis, upper left extremity Code(s): I82.622 - ACUTE EMBOLISM AND THROMBOSIS OF DEEP VEINS OF L UP EXTREM Status: Chronic (4) Breast neoplasm Status: Chronic (5) Hypertension Code(s): I10 - ESSENTIAL (PRIMARY) HYPERTENSION Status: Chronic - Plan * Acute on chronic anemia, due to blood loss- stable * Cellulitis of the chest wall- will change to oral antibiotics, and she can be discharged home today.
--- NOTE | 2018-11-30 20:45 | DIS ---
DATE OF ADMISSION: 11/25/2018 DATE OF DISCHARGE: 11/30/2018 PRIMARY CARE PHYSICIAN: Julian Guallpa MD. DISCHARGE DISPOSITION: Home. PRIMARY DISCHARGE DIAGNOSES: 1. Acute on chronic anemia due to blood loss. 2. Chest wall cellulitis. 3. Metastatic breast cancer. 4. Hypertension. 5. Chronic kidney disease stage 3. DISCHARGE MEDICATIONS: 1. Sodium bicarbonate 650 mg t.i.d. 2. Keflex 500 mg twice daily, doxycycline 100 mg twice daily, both for one week. 3. Iron sulfate 325 mg twice a day. 4. Apresoline 25 mg t.i.d. 5. Xarelto 20 mg daily. 6. Trazodone 50 mg at bedtime. 7. Omeprazole 20 mg daily. 8. every 3 days. 9. Clonidine 0.1 mg twice daily. 10. Vitamin D3 125 mcg p.o. daily. 11. Bisoprolol 10 mg daily. 12. Lipitor 40 mg daily. 13. Albuterol sulfate 90 mcg q.4 hours as needed. PROCEDURES DONE DURING THIS ADMISSION: The patient had a CT of the chest, abdomen and pelvis, showing enlarging inflammatory disease in the left breast, some worsening pulmonary metastatic disease and small pleural effusions with anasarca. HOSPITAL COURSE: Ms. Mckeon is a 73-year-old female, who was brought to the emergency room after it was noted that she had uncontrolled bleeding from an open wound on her chest, which is due to a fungating metastatic breast cancer lesion. This was cauterized in the ER with the establishment of hemostasis, and she was brought into the hospital to see if there is any additional workup or treatment that could be done. Unfortunately, this area is nonoperative. During her hospital stay, she also had acute on chronic injury, likely due to the bleeding and also sepsis, which could be related to both the breast cancer as well as the surrounding cellulitis in the wound. This was brought under control with IV antibiotics as well as local wound care. She was also seen by Oncology during her hospital stay and she refused any form of chemotherapy. She did say she would think it over once she was discharged and consider going to the Cancer Center for possible one treatment just to see how it is. Overall, due to the widely metastatic nature of her disease and lack of treatment due to patient refusal, her prognosis is extremely poor. Job ID: [id number]
--- NOTE | 2018-12-03 05:19 | PQF ---
[employer] Tmr Teacher Crystal Reports Winform Viewer ARCHANA ELLIS TONI MD [id number] [facility]-253 [id number] CLINICAL DOCUMENTATION CLARIFICATION FORM: POST DISCHARGE Addendum to original discharge summary date: ____ Late entry note date: __ DATE: 12/03/18 ATTN: Dr. Jono Brown Please exercise your independent, professional judgment in responding to the clarification form. Clinical indicators are provided on the bottom of this form for your review Diagnosis: Severe Sepsis 11/26/18 - Consult pg.1 Present on Admission (POA): [ X ] Yes [ ] No [ ] Unable to determine Coding guidelines require hospitals to identify whether a diagnosis was present on admission (POA) or not. To accurately assign the appropriate POA indicator, this information must be clearly documented within the medical record. CLINICAL INDICATORS - H and P 9/2 pg.1- "Recently diagnosed with stage 3 mammary carcinoma" H and P 9/2 pg.1- "Reports chills on and off" H and P 9/2 pg.3- "Laboratory 25.2H" H and P 9/2 pg.3- "Acute kidney injury" PB 11/29 pg.1- "Severe sepsis resolved" DS pg.1- "Chest wall cellulitis" RISK FACTORS: Breast wound- H and P 9/2 pg.4 stage 3 mammary carcinoma- H and P 9/2 pg.1 Chest wall cellulitis-DS pg.1 TREATMENT: Aspiration of left breast fluid collection- OP Report 11/25 Dr. Queen Infectious consult- Dr. Arcos 11/26 IV fluids- JUN 01 Ampicillin 3gm iV- JUN 01 Cefazolin 1gm IV- Vancomycin 750mg IV- JUN 01This form is maintained as a part of the permanent medical record) 2014 [employer]. All Rights Reserved [email or web address] [not provided] MTDD
== END 2018-11-30 17:30 | disposition home or self-care (01) | DRG 854 ==
LOC: ERS 02:52 → ERHOLD 05:08 → 2NO 11:56 → IMCU/EMU 11-26 13:39 → CCU 11-26 19:32 → SURG A 11-28 20:07
PROVIDERS: ADMIT Internal Medicine; ATTEND Internal Medicine
PROC: 0W380ZZ Control Bleeding in Chest Wall, Open Approach (ICD-10-PCS; 2018-11-25)
PROC: 30233N1 Transfusion of Nonautologous Red Blood Cells into Peripheral Vein, Percutaneous Approach (ICD-10-PCS; 2018-11-25)
PROC: 0H9U3ZZ Drainage of Left Breast, Percutaneous Approach (ICD-10-PCS; principal; 2018-11-27)
DX: A41.9 Sepsis, unspecified organism (principal); D62 Acute posthemorrhagic anemia; N17.9 Acute kidney failure, unspecified; I82.622 Acute embolism and thrombosis of deep veins of left upper extremity; C78.00 Secondary malignant neoplasm of unspecified lung; E87.2 Acidosis; L03.313 Cellulitis of chest wall; C50.912 Malignant neoplasm of unspecified site of left female breast; R65.20 Severe sepsis without septic shock; I12.9 Hypertensive chronic kidney disease with stage 1 through stage 4 chronic kidney disease, or unspecified chronic kidney disease; N18.3 Chronic kidney disease, stage 3 (moderate); D63.1 Anemia in chronic kidney disease; F17.210 Nicotine dependence, cigarettes, uncomplicated; E78.5 Hyperlipidemia, unspecified; M81.0 Age-related osteoporosis without current pathological fracture; Z90.49 Acquired absence of other specified parts of digestive tract; Z79.899 Other long term (current) drug therapy; Z79.51 Long term (current) use of inhaled steroids; Z17.1 Estrogen receptor negative status [ER-]
CPT/HCPCS: 36415; 36416; 36430; 71045; 71250; 74177; 80048; 80053; 80202; 81001; 82805; 83605; 83735; 84100; 84484; 85014; 85018; 85025; 85610; 85730; 86850; 86900; 86901; 86922; 87040; 87070; 87205; 93005; 93010; 96360; 96361; J0690; J1940; J2001; J2405; J2543; J3370; J3475; J3490; J7050; J7070; P9016

== ENCOUNTER 2019-01-21 15:05 | Day surgery (SDC) | payer MEDICARE ==
[2019-01-21] MEDS ORDERED: diphenhydrAMINE 25 MG CAP PO SCH (15:30)
[2019-01-21] MEDS ORDERED: Acetaminophen 500 MG TAB PO SCH (15:30)
[2019-01-21] MEDS ORDERED: HYDROcodone/Acetaminophen 5/325 mg Tablet PO SCH (16:15)
[2019-01-21 19:25] VITALS: BP 160/71; TEMP 99.2
[2019-01-21] MEDS ORDERED: Sodium Chloride 0.9% 10 ML ONE (19:38)
[2019-01-21 20:29] LABS: Band 20 % (5-11); Eosinophils 1 % (0-10); Hemoglobin 8.6 g/dL (12.0-16.0); Hypochromia SLIGHT = 6-15 cells (100X) (0-5/hpf); Lymphocytes 14 % (21-51); MDiff Complete? YES; Mean Corpuscular HGB CONC 31.9 g/dL (32.0-36.0); Mean Corpuscular Hemoglobin 27.5 pg (27.0-31.0); Mean Corpuscular Volume 86.1 fL (78.0-98.0); Mean Platelet Volume 7.5 fL (7.4-10.4); Monocytes 5 % (0-10); Neutrophil 60 % (42-75); Ovalocytes SLIGHT = 2-5 cells (100X) (0-1/hpf); Platelet Count 407 thou/uL (130-400); Platelet Morphology Comment Appears Increased; Polychromasia SLIGHT = 2-3 cells (100X) (0-2/hpf); RBC Distribution Width 15.8 % (11.5-14.5); Red Blood Cell (RBC) Count 3.14 mill/uL (4.20-5.40); Schistocytes SLIGHT = 2-5 cells (100X) (0-1/hpf); Target Cells SLIGHT = 2-5 cells (100X) (0-1/hpf); Tear Drops SLIGHT = 2-5 cells (100X) (0-1/hpf); White Blood Cell (WBC) Count 8.2 thou/uL (4.8-10.8)
[2019-01-22] MEDS ORDERED: FLU VACC TS2019-20(65YR UP)/PF 180 MCG/0.5 ML SYRINGE IM ONE (16:15)
== END 2019-01-21 20:10 | disposition home or self-care (01) ==
LOC: SDC/OP 15:05 → 3SE 15:14 → SDC/OP 20:10
PROVIDERS: ATTEND Internal Medicine Hematology & Oncology
PROC: 30233N1 Transfusion of Nonautologous Red Blood Cells into Peripheral Vein, Percutaneous Approach (ICD-10-PCS; principal; 2019-01-21)
DX: D64.9 Anemia, unspecified (principal)
CPT/HCPCS: 36430; 85025; 86850; 86900; 86901; 86904; 86920; 86922; P9016; 36415; 80053; 82248; 83615; 84100; 84443; 84550; J1642; Q0163

== ENCOUNTER 2019-03-06 13:33 | Outpatient (CLI) | payer MEDICARE ==
--- NOTE | 2019-03-06 14:38 | ULT ---
Venous duplex sonogram bilateral lower extremity HISTORY: Bilateral leg pain and edema. FINDINGS: Each common femoral vein and greater saphenous junction were evaluated along with each femo ral and deep femoral vein and popliteal vein. Posterior tibial veins unable to be visualized. There is good color and spectral Doppler flow and compression. IMPRESSION: No sonographic evidence of DVT within either lower extremity.
== END 2019-03-06 13:34 | disposition home or self-care (01) ==
LOC: BICULT 13:33
PROVIDERS: ATTEND Surgery
DX: I82.409 Acute embolism and thrombosis of unspecified deep veins of unspecified lower extremity (principal)
CPT/HCPCS: 80053; 82248; 83615; 84100; 84550; 93970

== ENCOUNTER 2019-05-23 09:00 | Day surgery (SDC) | payer MEDICARE ==
[2019-05-23] MEDS ORDERED: diphenhydrAMINE 25 MG CAP PO SCH (09:15)
[2019-05-23] MEDS ORDERED: Acetaminophen 500 MG TAB PO SCH (09:15)
[2019-05-23] MEDS ORDERED: Sodium Chloride 0.9% 20 ML ONE (09:19)
[2019-05-23 14:55] LABS: Hemoglobin 10.6 g/dL (12.0-16.0)
[2019-05-23 15:49] VITALS: BP 140/65; TEMP 98.5
== END 2019-05-23 15:50 | disposition home or self-care (01) ==
LOC: ONC/OP 09:00
PROVIDERS: ATTEND Internal Medicine Medical Oncology
PROC: 30233N1 Transfusion of Nonautologous Red Blood Cells into Peripheral Vein, Percutaneous Approach (ICD-10-PCS; principal; 2019-05-23)
DX: D64.9 Anemia, unspecified (principal); D69.6 Thrombocytopenia, unspecified
CPT/HCPCS: 36430; 85014; 85018; 86850; 86870; 86900; 86901; 86922; J1642; P9016; Q0163

== ENCOUNTER 2019-06-13 10:38 | Outpatient (CLI) | payer MEDICARE ==
[~2019-06-13 10:38] MED LIST: Iopamidol 370 76% 100 ML VIAL ONE
--- NOTE | 2019-06-13 13:50 | CT ---
CT CHEST WITH CONTRAST: 06/13/19 INDICATIONS: Left breast cancer, receiving chemo and radiation. Comparison made to CT chest 11/15/18. FINDINGS: There is a large peripherally enhancing mass involving the left breast with components extending from the skin surface. There is a large open wound in the left breast extending to a necrotic center. No significant axillary adenopathy. Review of the lung matias reveal bilateral pulmonary metastatic lesions. 1 cm nodule posterior left u pper lobe new since prior exam. More inferior a 1 cm pleural based nodule posterior left upper lobe new since prior exam. There was a nodule along the fissure on the prior study measuring 1 x 2 cm which is no longer apparen t. Small pleural based nodule measuring 6 to 7 mm anterior left lower lobe, new. In the right lung, there is a large mass posterolateral right lower lobe which was present previousl y but is now much larger measuring 3 cm today. Previously, this measured 1.3 cm. There are two adjace nt nodules in the right lower lobe measuring 1 cm. There are chronic lung parenchymal changes with central lobular emphysematous change. Mediastinum unr emarkable. Images through upper abdomen unremarkable. The visualized liver is homogeneous. The osseous structures appear unremarkable with no evidence of osseous metastasis. Subcutaneous haziness is seen in the upper chest bilaterally suggesting subcutaneous edema. IMPRESSION: 1. Larger peripherally enhancing nodular left breast mass with skin components with necrotic shamir ter and apparent open wound through the skin surface in the mid left breast. There is a secondary sat ellite lesion in the left chest wall medial to the left breast which involves the skin and is readily apparent by physical examination 3 cm. 2. Subcutaneous haziness suggesting subcutaneous edema seen in both upper chest regions. Slightl y more prominent on the left. 3. Lung metastatic lesions which have progressed since prior exam as described above. POS: [facility]
== END 2019-06-13 10:39 | disposition home or self-care (01) ==
LOC: CT 10:38
PROVIDERS: ATTEND Internal Medicine Hematology & Oncology
DX: C50.812 Malignant neoplasm of overlapping sites of left female breast (principal); C78.00 Secondary malignant neoplasm of unspecified lung; R91.8 Other nonspecific abnormal finding of lung field; N63.20 Unspecified lump in the left breast, unspecified quadrant; S21.002A Unspecified open wound of left breast, initial encounter
CPT/HCPCS: 71260; Q9967

== ENCOUNTER 2019-07-17 10:46 | Inpatient (IN) | payer MEDICARE ==
[2019-07-17] MEDS ORDERED: Cefepime 2 GM VIAL ONE (11:28)
[2019-07-17] MEDS ORDERED: Dextrose 50% Abboject 50 ML SYRINGE ONE ×2 (11:33→12:30)
[2019-07-17 11:41] LABS: #Monocytes 1.1 thou/uL (0.11-0.59); #Neutrophils 13.7 thou/uL (1.40-6.50); %Basophils 0.1 % (0.0-1.0); %Eosinophils 0.1 % (0.0-10.0); %Lymphocytes 6.4 % (21.0-51.0); %Monocytes 6.8 % (0.0-10.0); %Neutrophils 86.6 % (42.0-75.0); Mean Corpuscular Volume 83.8 fL (78.0-98.0); Mean Platelet Volume 9.2 fL (7.4-10.4); Platelet Count 367 thou/uL (130-400); RBC Distribution Width 18.7 % (11.5-14.5); Red Blood Cell (RBC) Count 3.83 mill/uL (4.20-5.40); White Blood Cell (WBC) Count 15.8 thou/uL (4.8-10.8)
--- NOTE | 2019-07-17 11:44 | RAD ---
Exam: Chest one view HISTORY:Cancer. Palpitation. Comparison: 01/15/2019 FINDINGS: Vascular access: Stable right-sided Mediport. Cardiac silhouette: Normal Aorta: Unremarkable Pulmonary vessels: Normal Costophrenic angles: Clear LUNGS: Persistent hyperinflation with chronic changes. Redemonstration of a rounded mass projecting o andre the right lung base. Density projecting left hemithorax is associated with the left breast. Additional hypodense nodules are identified in the left hemithorax. Pneumothorax: None Osseous abnormalities: None IMPRESSION: 1. No acute cardiopulmonary process 2. Extensive localized left breast neoplasm. 3. Metastatic lesion in the right lung base.
[2019-07-17 11:55] LABS: Bacteria/HPF 4+ HPF (None Seen); Bilirubin Negative (Negative); Blood, Urine Negative (Negative); Clarity Clear (Clear); Glucose, Urine (Dipstick) Normal (Negative); Leukocyte 500 Leu/uL (Negative); Nitrite Negative (Negative); Protein, Urine (Dipstick) 20 mg/dL (Neg-Trace); RBC/HPF 0-3 HPF (0-3); Squamous Epithelial 0-3 HPF (0-3)
[2019-07-17 11:57] LABS: ALT (SGPT) Less than 7 U/L (8-55); AST (SGOT) 15 U/L (5-34); Albumin 2.2 g/dL (3.4-4.8); Alkaline Phosphatase 101 U/L (40-110); Anion Gap 21 mmol/L (10-20); BUN (Urea Nitrogen) 88 mg/dL (9.8-20.1); Bilirubin, Total 0.3 mg/dL (0.2-1.2); Calc. Creatinine Clearance 0 mL/min (70-130); Calcium 8.9 mg/dL (7.8-10.44); Carbon Dioxide 11 mmol/L (23-31); Chloride 119 mmol/L (98-107); Estimated GFR-MDRD 18; Globulin 4.2 g/dL (2.4-3.5); Glucose 71 mg/dL (83-110); Potassium 6.5 mmol/L (3.5-5.1); Protein, Total 6.4 g/dL (6.0-8.3); Sodium 144 mmol/L (136-145)
[2019-07-17] MEDS ORDERED: Insulin Regular 300 UNITS/3 ML VIAL ONE (12:30)
[2019-07-17] MEDS ORDERED: Sodium Bicarb 50 MEQ/50 ML VIAL ONE (12:40)
[2019-07-17] MEDS ORDERED: Calcium Chloride 1 GM/10 ML Abboject SYRINGE ONE (12:40)
[2019-07-17] MEDS ORDERED: Vancomycin 1 GM/200 ML BAG ONE (13:07)
[2019-07-17 14:31] LABS: Lactic Acid 2.5 mmol/L (0.5-2.2)
[2019-07-17 14:36] LABS: ALT (SGPT) Less than 7 U/L (8-55); AST (SGOT) 12 U/L (5-34); Alkaline Phosphatase 86 U/L (40-110); Anion Gap 13 mmol/L (10-20); BUN (Urea Nitrogen) 85 mg/dL (9.8-20.1); Bilirubin, Total 0.4 mg/dL (0.2-1.2); Calc. Creatinine Clearance 0 mL/min (70-130); Calcium 9.3 mg/dL (7.8-10.44); Carbon Dioxide 17 mmol/L (23-31); Chloride 122 mmol/L (98-107); Estimated GFR-MDRD 18; Globulin 3.6 g/dL (2.4-3.5); Glucose 160 mg/dL (83-110); Potassium 5.5 mmol/L (3.5-5.1); Protein, Total 5.6 g/dL (6.0-8.3); Sodium 146 mmol/L (136-145)
--- NOTE | 2019-07-17 14:58 | CT ---
CT BRAIN: DATE: 07/17/2019. PROVIDED CLINICAL HISTORY: Altered mental status. FINDINGS: No comparisons. The ventricular system appears normal in size and morphology. There is no evidence for intracranial hemorrhage or mass effect. The extracranial soft tissues and osseous structures dem onstrate no acute abnormality. IMPRESSION: No evidence for intracranial hemorrhage or mass effect. POS: [facility]
[2019-07-17 15:29] LABS: INR-International Normal Ratio 1.1; PTT 29.6 SEC (22.9-36.1); Prothrombin Time 13.9 SEC (12.0-14.7)
[2019-07-17] MEDS ORDERED: Sodium Chloride 0.9% 1,000 ML IV SCH (16:30)
[2019-07-17] MEDS ORDERED: Ondansetron PF 4 MG/2 ML Vial IVP PRN (17:07)
[2019-07-17] MEDS ORDERED: Acetaminophen 325 MG TAB PO PRN (17:07)
[2019-07-17] MEDS ORDERED: Ondansetron ODT 4 MG TAB PO PRN (17:07)
[2019-07-17] MEDS ORDERED: Calcium Carbonate 500 MG ChewTAB PO PRN (17:07)
[2019-07-17] MEDS ORDERED: Meropenem 1 GM in Sodium Chloride 0.9% 100 ML IVPB SCH (17:15)
[2019-07-17] MEDS: Sodium Bicarbonate 150 MEQ in Dextrose 5% in Water 1,000 ML IV SCH (17:18)
[2019-07-17] MEDS ORDERED: HYDROcodone/Acetaminophen 5/325 mg Tablet PO PRN (19:46)
[2019-07-17] MEDS: Senokot S 8.6-50 MG TAB PO SCH (21:24)
[2019-07-17] MEDS: Famotidine 20 MG TAB PO SCH (21:24)
[2019-07-17] MEDS: Meropenem 500 MG in Sodium Chloride 0.9% 100 ML IVPB SCH (21:26)
[2019-07-17] MEDS ORDERED: Cefepime 2 GM in Sodium Chloride 0.9% 100 ML IVPB SCH (23:00)
[2019-07-18] MEDS: Sodium Bicarbonate 150 MEQ in Dextrose 5% in Water 1,000 ML IV SCH ×4 (00:47→20:54)
[2019-07-18] MEDS: HYDROcodone/Acetaminophen 5/325 mg Tablet PO PRN ×3 (03:57→20:11)
--- NOTE | 2019-07-18 07:22 | PDOC.EVN ---
Event Note - Event Note Event Note: Patient seen and examined. Full code. DPOA - daughter
[2019-07-18 07:39] LABS: Lactic Acid 4.2 mmol/L (0.5-2.2)
[2019-07-18 07:40] LABS: ALT (SGPT) Less than 7 U/L (8-55); AST (SGOT) 13 U/L (5-34); Albumin 1.8 g/dL (3.4-4.8); Alkaline Phosphatase 82 U/L (40-110); Anion Gap 15 mmol/L (10-20); BUN (Urea Nitrogen) 73 mg/dL (9.8-20.1); Bilirubin, Total 0.2 mg/dL (0.2-1.2); Calc. Creatinine Clearance 16 mL/min (70-130); Calcium 8.5 mg/dL (7.8-10.44); Carbon Dioxide 23 mmol/L (23-31); Chloride 116 mmol/L (98-107); Estimated GFR-MDRD 27; Globulin 3.2 g/dL (2.4-3.5); Glucose 94 mg/dL (83-110); Magnesium 2.1 mg/dL (1.6-2.6); Phosphorus 3.6 mg/dL (2.3-4.7); Potassium 4.5 mmol/L (3.5-5.1); Sodium 149 mmol/L (136-145)
[2019-07-18 07:51] LABS: Hemoglobin 8.6 g/dL (12.0-16.0); Mean Corpuscular HGB CONC 31.4 g/dL (32.0-36.0); Mean Corpuscular Hemoglobin 26.6 pg (27.0-31.0); Mean Corpuscular Volume 84.7 fL (78.0-98.0); Mean Platelet Volume 9.9 fL (7.4-10.4); Platelet Count 263 thou/uL (130-400); RBC Distribution Width 18.3 % (11.5-14.5); Red Blood Cell (RBC) Count 3.25 mill/uL (4.20-5.40); White Blood Cell (WBC) Count 10.4 thou/uL (4.8-10.8)
--- NOTE | 2019-07-18 08:15 | HP ---
PRIMARY CARE PHYSICIAN: Dr. Guallpa. PRIMARY ONCOLOGIST: Dr. Hernandez. CHIEF COMPLAINT: Altered mentation. 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 She was found to have lethargy along with poor oral intake. The home health care reported that she was not acting herself. She was brought in by her daughter to the emergency room for evaluation. There was no fever, chills, focal weakness, recent travel, cough, wheezing, shortness of breath, nausea, vomiting, or diarrhea reported. At this time after ER management, her mentation is gradually improving. She states that she felt weak over the last few days. She has not been eating well. In the emergency room, her initial vital signs showed temperature of 97.1 with respirations of 18, pulse rate of 109, blood pressure of 96/55 with O2 saturation of 98% on room air. Workup was consistent with acute kidney injury with creatinine of 3.08 with a potassium of 6.5. Baseline creatinine is 1.1 to 1.3 range. The lactic acid was elevated. She received sodium bicarbonate, IV fluid, insulin, D50, and cefepime in the emergency room. PAST MEDICAL HISTORY: 1. Stage IV triple-negative invasive mammary carcinoma of the left breast as discussed above. 2. Hypertension. 3. CKD, stage 3. 4. Mild intermittent asthma. 5. GERD. 6. History of blood transfusion. 7. History of left upper extremity DVT. PAST SURGICAL HISTORY: 1. Appendectomy. 2. Cholecystectomy in 2009. 3. Back surgery. 4. Left breast skin biopsy in October 2018. 5. MediPort placement. 6. Ultrasound-guided left breast fluid collection in November 2018. ALLERGIES: NO KNOWN DRUG ALLERGIES. CURRENT HOME MEDICATION: We will try to get accurate list from her family. She is unable to recall any of her home medications. She is unsure whether she is still on anticoagulation. FAMILY HISTORY: She has family history of cancer of unknown type. SOCIAL HISTORY: The patient currently lives with her daughter. She is . She has a long history of smoking up to half pack a day for last 30 years. No alcohol or drug use. REVIEW OF SYSTEMS: Limited due to current mentation. PHYSICAL EXAMINATION: VITAL SIGNS: As discussed above. GENERAL: A 73-year-old female, somnolent, ill-appearing. Cachectic with severe muscle wasting. HEENT: Head, atraumatic and normocephalic. Sclerae anicteric. Dry mucous membranes. No oral lesion. NECK: Supple. No JVD. No carotid bruit. LUNGS: Showed diminished air entry at bilateral bases with scattered rhonchi. There were no significant rales or wheezing. HEART: S1 and S2 present. Regular. Tachycardic. No rubs or gallops. ABDOMEN: Soft. Bowel sounds present. No rebound or guarding. No costovertebral angle tenderness. EXTREMITIES: There is 2+ pitting edema in bilateral lower extremity. NEUROLOGIC: The exam is nonfocal. No focal deficit. Power was 5/5 in all extremities. PSYCHIATRY: The patient is somnolent, however not lethargic anymore. Her mentation is improving. She is alert, awake, and oriented x3. SKIN FINDINGS: The left breast has the dressing present. Per ER report, she had asymmetric fungating left breast mass with foul odor and purulent discharge. MUSCULOSKELETAL: No joint swelling tenderness. PERIPHERAL VASCULAR: Radial pulses palpable bilaterally, low volume. LABORATORY FINDINGS: CBC showed WBC 15.8 with hemoglobin of 10.0, hematocrit 32 , platelet count of 367. PT, INR, and PTT normal range. Chemistry showed sodium 144, potassium 6.5 with chloride of 119, bicarbonate 11 , BUN 88, creatinine 3.08, glucose of 71. Lactic acid 2.6, albumin of 2.2. Urinalysis showed 7 to 10 wbc's with 4+ bacteria. Blood and urine cultures have been sent. IMAGING STUDIES: Chest x-ray by my review was negative for infiltrate. It showed metastatic lesion to the right lung base. CT scan of the brain by my review was negative. EKG by my review showed sinus tachycardia with nonspecific ST-T wave changes. IMPRESSION: 1. Toxic metabolic encephalopathy. 2. Acute kidney injury on chronic kidney disease stage 3 with significant metabolic acidosis and hyperkalemia. 3. Lactic acidosis. 4. Hypoglycemia probably due to poor oral intake. 5. Leukocytosis with suspected sepsis. 6. Severe protein-calorie malnutrition. 7. Stage IV triple-negative invasive mammary carcinoma of the left breast, currently on Tecentriq and Abraxane per Dr. Hernandez. 8. Ongoing tobacco abuse. 9. Hypertension. 10. History of venous thromboembolism, unclear whether she is still on anticoagulation. 11. Gastroesophageal reflux disease. 12. Hyperlipidemia. 13. Chronic pain syndrome on fentanyl patch per patient report. 14. Chronic anemia suspected due to nutritional deficiency. PLAN: The patient will be monitored on the telemetry unit due to significant hyperkalemia. We will try to verify home medications. It is unclear whether she is still on anticoagulation. Fentanyl patch will be resumed. We will start her on low-dose hydrocodone for pain control. We will start her on sodium bicarbonate drip with dextrose. We will recheck labs on a daily basis. Repeat lactic acid in a.m. Blood cultures have been sent. We will empirically start meropenem. We will hold vancomycin for now due to significant acute kidney injury and low suspicion of MediPort infection. There was no swelling around the MediPort. Oncology will be consulted. The patient understands the above plan of care. Palliative Care Team will be consulted. Job ID: [id number] MTDD
[2019-07-18 08:22] LABS: Anisocytosis SLIGHT = 6-15 cells (100X) (0-5/hpf); Eosinophils 1 % (0-10); Hypochromia SLIGHT = 6-15 cells (100X) (0-5/hpf); Lymphocytes 7 % (21-51); MDiff Complete? YES; Monocytes 11 % (0-10); Neutrophil 81 % (42-75); Platelet Morphology Comment Appears Adequate
[2019-07-18] MEDS: Senokot S 8.6-50 MG TAB PO SCH ×2 (09:18→20:11)
[2019-07-18] MEDS: Meropenem 500 MG in Sodium Chloride 0.9% 100 ML IVPB SCH ×2 (09:53→20:12)
--- NOTE | 2019-07-18 10:07 | PDOC.HOSPP ---
- Subjective Encounter Date: 07/18/19 Encounter Time: 08:30 Subjective: Patient seen and examined for Encephalopathy/[place]. Feeling better. No new complaints. No overnight events - Objective Vital Signs & Weight: Vital Signs (12 hours) Temp Pulse Resp BP Pulse Ox 07/18/19 03:55 97.1 F L 90 23 H 123/58 L 96 Weight Weight 103 lb I&O: 07/17/19 07/18/19 07/19/19 06:59 06:59 06:59 Intake Total 1600 Balance 1600 Result Diagrams: 07/18/19 07:05 07/18/19 07:05 Additional Labs: Accuchecks 07/17/19 07/17/19 12:39 11:24 POC Glucose 122 H 64 L Laboratory Tests 07/17/19 07/18/19 14:01 07:05 Potassium 5.5 H Creatinine 3.02 H C-Reactive Protein 2.50 H Laboratory Tests 07/18/19 07:05 Lactic Acid 4.2 H* Radiology Reviewed by me: Yes (CXR - No infiltrate) EKG Reviewed by me: Yes (Tele SR) Hospitalist ROS - Review of Systems Respiratory: denies: cough, dry, shortness of breath, hemoptysis, SOB with excertion, pleuritic pain, sputum, wheezing, other Cardiovascular: denies: chest pain, palpitations, orthopnea, paroxysmal noc. dyspnea, edema, light headedness, other Gastrointestinal: denies: nausea, vomiting, abdominal pain, diarrhea, constipation, melena, hematochezia, other - Medication Medications: Active Medications Generic Name Dose Route Start Last Admin Trade Name Freq PRN Reason Stop Dose Admin Hydrocodone Bitart/Acetaminophen 1 tab 07/17/19 19:50 07/18/19 09:17 [place] 5/325 PO 1 tab Q4H PRN Administration Moderate Pain (4-6) Famotidine 20 mg 07/17/19 21:00 07/17/19 21:24 Pepcid PO 20 mg QPM MARGOTH Administration Fentanyl 25 mcg 07/17/19 20:00 07/17/19 21:24 Duragesic TD 25 mcg Q3D MARGOTH Administration Sodium Bicarbonate 150 meq/ 1,150 mls @ 150 mls/hr 07/17/19 14:30 07/18/19 07 :23 Dextrose/Water IV 1,150 mls .[id number] MARGOTH Administration Meropenem 500 mg/ Sodium 100 mls @ 200 mls/hr 07/17/19 21:00 07/18/19 09:53 Chloride IVPB 100 mls Q12HR MARGOTH Administration Senna/Docusate Sodium 1 tab 07/17/19 21:00 07/18/19 09:18 Senokot S PO 1 tab BID MARGOTH Administration - Exam General Appearance: NAD Neck: supple, symmetric, no JVD, no thyromegaly Heart: RRR, no gallops, no rubs, normal peripheral pulses Respiratory: no wheezes, no rales, normal chest expansion, rhonchi (at bases) Gastrointestinal: soft, non-tender, non-distended, normal bowel sounds, no guarding, no rigidity Extremities: no cyanosis, no clubbing, no edema Neurological: no new deficit Psychiatric: normal affect, A&O x 3 Hosp A/P - Plan PT/OT, social work program coordinator, DVT proph w/SCDs IMPRESSION: 1. Toxic metabolic encephalopathy. 2. [place] on CKD 3 with metabolic acidosis/Lactic acidosis. and hyperkalemia. 3. UTI 4. Hypoglycemia probably due to poor oral intake. 5. Leukocytosis with suspected sepsis. 6. Severe protein-calorie malnutrition. 7. Stage IV triple-negative invasive mammary carcinoma of the left breast, currently on Tecentriq and Abraxane per Dr. Hernandez. 8. Ongoing tobacco abuse. 9. Hypertension. 10. History of venous thromboembolism, unclear whether she is still on anticoagulation. 11. Gastroesophageal reflux disease. 12. Hyperlipidemia. 13. Chronic pain syndrome on fentanyl patch per patient report. 14. Chronic anemia suspected due to nutritional deficiency. PLAN: Cont IVF with Bicarb Lactic acid still elevated Await ID/Oncology/Palliative care input Cont Fentanyl patch Confirm home meds Wound care Cont Meropenem AM labs BMP later today Renal Ultrasound to r/o obstructive uropathy Recheck Lactic acid later today and in AM Case d/w daughter
--- NOTE | 2019-07-18 11:25 | ULT ---
Bilateral renal ultrasound CLINICAL INDICATION: Acute renal insufficiency COMPARISON: 11/17/2018 FINDINGS: Right kidney: There is no evidence of a renal mass, renal calculus, or hydronephrosis seen. The right kidney remains small in size measuring 8.3 cm x 3.3 cm. Left kidney: A small exophytic hypoechoic structure is seen superior pole left kidney measuring 1.2 c m. This is difficult to characterize on this exam due to small size. There is otherwise no evidence of a renal mass, calculus, or hydronephrosis involving the left kidney. The left kidney is again smal l in size measuring 7 cm x 4 cm. Urinary bladder: Within normal limits with urinary bladder volume of 254 mL. IMPRESSION: 1. Small size of the bilateral kidneys which was also seen on prior renal sonogram. No hydronephrosis is present. 2. Difficult to characterize hypoechoic cystic-appearing lesion superior pole left kidney.
[2019-07-18] MEDS ORDERED: Morphine 2 MG/ML SYRINGE SLOW IVP PRN (11:45)
--- NOTE | 2019-07-18 11:52 | PDOC.PALCO ---
Palliative Care Consult - Consult Details Requesting Physician: Dr Cueva Reason for Consult: goals of care, advance directives assistance, family support , complex decision-making - Pertinent HPI 73 year old female with left sided IV triple negative invasive breast cancer who is under the care of Dr Hernandez. She has been on Tencentriq/Abraxane since December 2018. Lives independently with her daughter in a private setting. Weakness, mild assist with ADL. She had an onset of altered mental status and decrease in intake. Her daughter brought her to the emergency room for evaluation. Denies fever, chills, nausea, cough, sore throat. After evaluation in ht emergency room she wsa admitted to telemetry for medical management of acute kidney injury, hyperkalemia. Home health care in home. - Pertinent PMH IV Triple negative invasive mammary carcinoma, HTN, CKD, GERD, Asthma - Social History Smoking Status: Current every day smoker Smoking: cigarettes Alcohol Use: none Drug Use History: none Living Situation: other (lives independently with her daughter) - Medications MAR Reviewed: Yes - Allergies Allergies/Adverse Reactions: Allergies Allergy/AdvReac Type Severity Reaction Status Date / Time No Known Allergies Allergy Verified 07/17/19 18:23 - Subjective Awake, alert. Complains of nausea and pain. - ROS Constitutional: alert, weakness ENT: other (Denies difficulity swallowing, sore throat) Respiratory: other (denies cough, congestion) Cardiology: other (denies chest pain, palpitations) Gastrointestinal: intolerance of foods, nausea Genitourinary: other (denies dysuria, hematuria) Musculoskeletal: arthritis/arthralgias, other (Pain to left breast area/chest wall) Neurological: weakness Skin: wounds - Objective Vital Signs: Vital Signs - Most Recent Temp Pulse Resp BP Pulse Ox 97.1 F L 84 23 H 101/52 L 96 07/18/19 03:55 07/18/19 10:15 07/18/19 03:55 07/18/19 10:15 07/18/19 03:55 Palliative Performance Scale: 30 - Physical Exam Constitutional: cachectic, emaciated, ill appearing HEENT: EOMI (mildly labored with conversation, adventicious lung sounds), moist MMs, sclera anicteric Cardiovascular: RRR Gastrointestinal: soft Genitourinary: incontinent Musculoskeletal: edema present, diffuse muscle atrophy Neurology: moves all 4 limbs, no focal deficits Psychiatric: A&O x 3, flat affect - Problem List (1) Palliative care encounter Code(s): Z51.5 - ENCOUNTER FOR PALLIATIVE CARE Current Visit: Yes Status: Acute (2) Physical deconditioning Code(s): R53.81 - OTHER MALAISE Current Visit: Yes Status: Acute (3) Acute kidney injury Code(s): N17.9 - ACUTE KIDNEY FAILURE, UNSPECIFIED Current Visit: No Status : Acute (4) Breast neoplasm Current Visit: No Status: Chronic - Plan/Recommendations Plan: Short life review, born in [place] and has always lived in this area. Desires to return home as soon as possible. Patient remains in pain, spoke with Dr Cueva and he is to readdress pain medication. Nurse to give Zofran IVP to mitigate nausea. *Communicated with Christina Martinez/Oncology. She relayed Dr Hernandez supports conversation for Hospice *Communicated with Dr Cueva and will follow up after family meeting *Christina Cortez RNfashion model arranged family meeting with daughter and patient at 2pm Will address Goal of Care and introduce Hospice, address resuscitation status. [60] minutes spent on this encounter with >50% of the time in counseling and coordination of care. Thank you for this very appropriate consult.
--- NOTE | 2019-07-18 14:54 | PDOC.PALFU ---
Palliative Care Follow-up Note Lengthy conversation with patient and daughter in relation to transition to Hospice. Currently on home health with [facility] and would like to transition to their Hospice. Choice letter obtained, Dr Cueva notified.
--- NOTE | 2019-07-18 14:55 | CON ---
DATE OF CONSULTATION: REASON FOR CONSULTATION: Metastatic breast cancer, possible sepsis. HISTORY OF PRESENT ILLNESS: A 73-year-old, history of stage IV breast cancer, locally invasive as well as with lung metastasis, who I think has been still on chemotherapy, but more recently considerations for hospice care have been given by Dr. Hernandez, who now presented with generalized weakness and confusional state, lethargy, and decreased oral intake. On arrival, the patient had hyperkalemia and evidence of acute renal insufficiency and she was given medication to decrease her potassium and give her some volume. There was evidence of lactic acidosis and leukocytosis, so the concern with sepsis was brought up. The patient was given broad-spectrum antimicrobial coverage. The initial findings included BP 96/55, pulse 109, respirations 18, and O2 saturation 98 on room air. She remained afebrile in the emergency room stage and has remained afebrile through the hospital stay thus far. She did have elevation of white cell count at 15.8, hemoglobin 10, platelets 367, with a predominance of mature neutrophils. INR is 1.1 and creatinine is 3.02, her baseline was 1.0 on May 01 this year. Liver profile was within normal limits and albumin is 2.0. Urinalysis with 7 to 10 wbc's. Thus far, the urine culture with 2 different gram-negative rods isolated via straight catheter, and in terms of imaging, we have had a chest x-ray, which did not show any infiltrates and showed the extensive left breast neoplasm, localized with some mets. Renal ultrasound did not show any obstruction. Currently, Ms. Mckeon is in bed. She is awake and is requesting to be transferred to the chair because of pain in the lower back. She denies any headaches. No visual symptoms. No sore throat, odynophagia, or dysphagia, and she has back pain and pain in the appendicular structures. She is diffusely weak. The patient is voiding in the diaper. She has an accessed port in the right subclavian location. PAST MEDICAL HISTORY: Stage IV triple negative breast cancer, left side with local and distant invasion; hypertension; CKD with acute renal insufficiency; asthma; GERD; prior DVT, left upper extremity. PAST SURGICAL HISTORY: Appendectomy, cholecystectomy, back surgery, probably laminectomy, left breast biopsy in October 2018, MediPort placement. ALLERGIES: NONE. FAMILY HISTORY: Noncontributory. SOCIAL HISTORY: Lives in [place] with daughter. Used to smoke, but recently discontinued. CURRENT MEDICATIONS: 1. P.r.n. medications. 2. Pepcid. 3. Duragesic. 4. Meropenem. 5. Morphine. 6. Zofran. 7. Senokot. PHYSICAL EXAMINATION: VITAL SIGNS: Temperature max 97.2, blood pressure 101/52, pulse 90, respirations 23, O2 saturation 96. SKIN: Shows this fungating mass in the left lateral chest region close to the shoulder, measuring 10 x 12 cm with some areas of hemorrhage. A few satellite nodules are noted close to the same area and under the left breast. The port is accessed. She does not have a Acosta catheter. GENERAL: Cachexia is noted. HEENT: Ocular movements are conjugate. Sclerae are white. Pupils are equal. Pale conjunctivae. Oral cavity with dentures in the upper. No [place] teeth in the mandible. NECK: Supple. No jugular vein distention. LUNGS: With diminished breath sounds on the left side. No wheezing. HEART: S1 and S2, regular rate. ABDOMEN: Soft. Not distended or tender. No ascites. No bladder distention. EXTREMITIES: No joint inflammatory activity. She has 2+ edema in lower extremities with some stasis dermatitis changes, diffusely weak, but she is able to move all extremities. Pulses are diminished in dorsalis pedis. NEUROLOGIC: She is awake and oriented, follows commands. LABORATORY DATA: The latest labs; white cell count down to 10.4, hemoglobin 8.6, platelets 263, and 81% neutrophils. Creatinine is down to 2.18. Two sets of blood cultures, thus far no growth. ASSESSMENT: 1. Stage IV breast cancer with local and distant invasiveness, refractory to prior treatments with progression. 2. Decreased oral intake, acute renal failure, which led to the toxic metabolic encephalopathy. 3. Hyperlactatemia with neutrophilia. DISCUSSION: The neutrophilia and hyperlactatemia maybe related to the hemodynamic consequences of the volume depletion, and we would recommend waiting on the final results of blood cultures. If that is negative, then I would discontinue antimicrobial therapy. The patient apparently is considering hospice admission, which I think is a reasonable approach. She does have 2 organisms isolated from the urine. Those were obtained via straight cath and I think it would be reasonable to treat those depending on susceptibility results. Of course, if she is admitted to hospice, then it would be a moot point. Job ID: [id number]
[2019-07-18] MEDS: Famotidine 20 MG TAB PO SCH (20:11)
--- NOTE | 2019-07-18 22:42 | CON ---
DATE OF CONSULTATION: REASON FOR CONSULTATION: Breast cancer. HISTORY OF PRESENT ILLNESS: Ms. Mckeon is a 73-year-old female, who has neglected stage IV triple-negative invasive mammary carcinoma of the left breast. She has metastatic disease to the lung. She had a large fungating breast mass at diagnosis. She underwent 6 cycles of Abraxane and Tecentriq and is currently only on Abraxane. She had been struggling in May with failure to thrive. There was minimal improvement in her large mass. It was very malodorous, painful. She was receiving wound care and home health. She had had a recent CT of her chest at the end of May, which showed progression of her lung lesions. There was also a larger right lower lobe lesion. The patient missed her followup appointment with Dr. Hernandez to discuss CT scan findings. She presented to the emergency room yesterday after her home health nurse found her confused. She had an appointment today to discuss hospice with Dr. Hernandez, but presented to the emergency room yesterday with the altered mental status. Her sodium and potassium are elevated. Her creatinine was slightly worse. She has had chronic slightly worse on this admission. She was seen at bedside with her daughter present. Palliative Care was in the room at consultation. PAST MEDICAL HISTORY: 1. Stage IV metastatic triple-negative breast cancer with a large neglected breast mass. 2. Hypertension. 3. Hyperlipidemia. 4. Arthritis. 5. Asthma and COPD. 6. Chronic kidney disease. 7. GERD. 8. DVT in her left upper extremity. PAST SURGICAL HISTORY: 1. Appendectomy. 2. Cholecystectomy. 3. Back surgery. 4. Breast biopsy. 5. MediPort placement. ALLERGIES: NO KNOWN DRUG ALLERGIES. HOME MEDICATIONS: 1. Atorvastatin. 2. Clonidine. 3. Fentanyl. 4. Gabapentin. 5. Hydralazine. 6. Prilosec. 7. Xarelto. 8. Zofran. FAMILY HISTORY: Unknown type of cancer. SOCIAL HISTORY: . Lives with her daughter. 15-ozap-mtdp history of smoking. No alcohol or illicit drug use. REVIEW OF SYSTEMS: Deferred at this time. PHYSICAL EXAMINATION: VITAL SIGNS: Temperature 97.1, pulse is 90, respiratory rate 23, blood pressure is 101/52. GENERAL: This is a chronically ill-appearing female, in no acute distress. LUNGS: Respirations are unlabored. BREASTS: She has a large malodorous left breast mass with dressing intact. EXTREMITIES: She has bilateral lower extremity edema. PERTINENT LABORATORY DATA AND X-RAYS: Current WBCs are 10.4, hemoglobin 8.6, hematocrit 27.5, platelet count 263,000. She got 81% neutrophils, 7% lymphocytes, and 11% monocytes. PT is 13.9, INR is 1.1, PTT is 29.6. Sodium 149, potassium 4.5, chloride 116, CO2 is 23, BUN is 73, creatinine 2.18. Lactic acid 4.2. Calcium 8.5, phosphorus 3.6, magnesium 2.1, bilirubin 0.2, AST is 13, ALT is less than 7, alkaline phosphatase is 82, serum total protein is 5, albumin 1.8, globulin 3.2. 4+ bacteria in her urine. Radiology per HPI. ASSESSMENT: 1. Metastatic triple-negative breast cancer with recent progression on immunotherapy. 2. Large neglected left breast mass. 3. Progression of lung lesions on recent CT scan. DISCUSSION: Palliative Care has seen the patient and discussed hospice with the patient and daughter. I have discussed the case with Dr. Hernandez who agrees that this is the best option for the patient as she has continued to progress and it is unlikely that any further treatment will be of any value. Family has agreed. Arrangements are being made and she can be discharged home once hospice is set up. Thank you for the consult. Job ID: [id number]
[2019-07-19] MEDS: Sodium Bicarbonate 150 MEQ in Dextrose 5% in Water 1,000 ML IV SCH ×3 (04:25→20:13)
[2019-07-19] MEDS ORDERED: Sodium Chloride 0.9% 500 ML IVPB SCH (08:30)
[2019-07-19] MEDS: HYDROcodone/Acetaminophen 5/325 mg Tablet PO PRN ×3 (08:46→21:49)
[2019-07-19] MEDS: Senokot S 8.6-50 MG TAB PO SCH ×2 (08:47→20:13)
[2019-07-19] MEDS: Meropenem 500 MG in Sodium Chloride 0.9% 100 ML IVPB SCH ×2 (08:48→20:13)
[2019-07-19 09:17] LABS: #Eosinphils 0.1 thou/uL (0.0-0.7); #Monocytes 0.8 thou/uL (0.11-0.59); #Neutrophils 7.8 thou/uL (1.40-6.50); %Basophils 0.4 % (0.0-1.0); %Eosinophils 0.5 % (0.0-10.0); %Lymphocytes 10.1 % (21.0-51.0); %Monocytes 7.8 % (0.0-10.0); %Neutrophils 81.2 % (42.0-75.0); Hemoglobin 8.1 g/dL (12.0-16.0); Mean Corpuscular Hemoglobin 26.1 pg (27.0-31.0); Mean Corpuscular Volume 84.3 fL (78.0-98.0); Mean Platelet Volume 8.8 fL (7.4-10.4); Platelet Count 258 thou/uL (130-400); RBC Distribution Width 18.5 % (11.5-14.5); Red Blood Cell (RBC) Count 3.09 mill/uL (4.20-5.40); White Blood Cell (WBC) Count 9.6 thou/uL (4.8-10.8)
[2019-07-19 09:29] LABS: Lactic Acid 5.1 mmol/L (0.5-2.2)
[2019-07-19 09:30] LABS: ALT (SGPT) Less than 7 U/L (8-55); AST (SGOT) 15 U/L (5-34); Albumin 1.5 g/dL (3.4-4.8); Alkaline Phosphatase 75 U/L (40-110); Anion Gap 13 mmol/L (10-20); BUN (Urea Nitrogen) 53 mg/dL (9.8-20.1); Bilirubin, Total Less than 0.2 mg/dL (0.2-1.2); Calc. Creatinine Clearance 24 mL/min (70-130); Calcium 7.5 mg/dL (7.8-10.44); Carbon Dioxide 31 mmol/L (23-31); Chloride 110 mmol/L (98-107); Estimated GFR-MDRD 42; Globulin 2.8 g/dL (2.4-3.5); Glucose 91 mg/dL (83-110); Magnesium 1.8 mg/dL (1.6-2.6); Phosphorus 2.5 mg/dL (2.3-4.7); Potassium 3.7 mmol/L (3.5-5.1); Protein, Total 4.3 g/dL (6.0-8.3); Sodium 150 mmol/L (136-145)
--- NOTE | 2019-07-19 14:43 | PDOC.HOSPP ---
- Subjective Encounter Date: 07/19/19 Encounter Time: 14:41 Subjective: Ms. Mckeon was seen today in follow-up of UTI with sepsis. she does not have any complaints. She says her pain is well controlled. she wasnt to go home and spend some time with her daughter. - Objective Vital Signs & Weight: Vital Signs (12 hours) Temp Pulse Resp BP Pulse Ox 07/19/19 11:16 97.4 F L 90 16 106/54 L 95 07/19/19 07:54 98.4 F 93 16 89/53 L 95 07/19/19 03:17 97.4 F L 102 H 16 101/54 L 93 L Weight Admit Weight 103 lb Weight 102 lb 4.8 oz I&O: 07/18/19 07/19/19 07/20/19 06:59 06:59 06:59 Intake Total 1600 3425 Balance 1600 3425 Result Diagrams: 07/19/19 08:56 07/19/19 08:56 Hospitalist ROS - Medication Medications: Active Medications Generic Name Dose Route Start Last Admin Trade Name Freq PRN Reason Stop Dose Admin Hydrocodone Bitart/Acetaminophen 1 tab 07/17/19 19:50 07/19/19 08:46 [place] 5/325 PO 1 tab Q4H PRN Administration Moderate Pain (4-6) Famotidine 20 mg 07/17/19 21:00 07/18/19 20:11 Pepcid PO 20 mg QPM MARGOTH Administration Fentanyl 25 mcg 07/17/19 20:00 07/17/19 21:24 Duragesic TD 25 mcg Q3D MARGOTH Administration Sodium Bicarbonate 150 meq/ 1,150 mls @ 150 mls/hr 07/17/19 14:30 07/19/19 04 :25 Dextrose/Water IV 1,150 mls .Q7H40M MARGOTH Administration Meropenem 500 mg/ Sodium 100 mls @ 200 mls/hr 07/17/19 21:00 07/19/19 08:48 Chloride IVPB 100 mls Q12HR MARGOTH Administration Ondansetron HCl 4 mg 07/17/19 17:07 07/18/19 12:30 Zofran IVP 4 mg Q6H PRN Administration Nausea/Vomiting Senna/Docusate Sodium 1 tab 07/17/19 21:00 07/19/19 08:47 Senokot S PO 1 tab BID MARGOTH Administration Sodium Chloride 10 ml 07/17/19 17:07 07/19/19 08:47 Flush - Normal Saline IVF 10 ml PRN PRN Administration Saline Flush - Exam Eye: PERRL Heart: RRR, no murmur, no gallops, no rubs, normal peripheral pulses Respiratory: CTAB, no wheezes, no rales, no ronchi, normal chest expansion Hosp A/P (1) UTI (urinary tract infection) Status: Acute (2) Beqjc-xm-jclyihd kidney injury Code(s): N17.9 - ACUTE KIDNEY FAILURE, UNSPECIFIED; N18.9 - CHRONIC KIDNEY DISEASE, UNSPECIFIED Status: Acute (3) Hypertension Code(s): I10 - ESSENTIAL (PRIMARY) HYPERTENSION Status: Chronic - Plan * UTI nd acute on chronic kidney injury- improved * She has decided to go home with hospice * Stable for discharge home
[2019-07-19] MEDS: Famotidine 20 MG TAB PO SCH (20:12)
[2019-07-20] MEDS: Sodium Bicarbonate 150 MEQ in Dextrose 5% in Water 1,000 ML IV SCH ×3 (03:43→19:57)
[2019-07-20 04:26] LABS: #Eosinphils 0.1 thou/uL (0.0-0.7); #Monocytes 0.7 thou/uL (0.11-0.59); #Neutrophils 7.1 thou/uL (1.40-6.50); %Basophils 0.3 % (0.0-1.0); %Eosinophils 0.9 % (0.0-10.0); %Lymphocytes 11.2 % (21.0-51.0); %Monocytes 7.7 % (0.0-10.0); %Neutrophils 79.9 % (42.0-75.0); Hemoglobin 8.2 g/dL (12.0-16.0); Mean Corpuscular HGB CONC 30.1 g/dL (32.0-36.0); Mean Corpuscular Hemoglobin 25.7 pg (27.0-31.0); Mean Corpuscular Volume 85.4 fL (78.0-98.0); Mean Platelet Volume 8.9 fL (7.4-10.4); Platelet Count 238 thou/uL (130-400); RBC Distribution Width 18.1 % (11.5-14.5); Red Blood Cell (RBC) Count 3.19 mill/uL (4.20-5.40); White Blood Cell (WBC) Count 8.8 thou/uL (4.8-10.8)
[2019-07-20 05:11] LABS: Anion Gap 15 mmol/L (10-20); Carbon Dioxide 37 mmol/L (23-31); Chloride 99 mmol/L (98-107); Potassium 3.3 mmol/L (3.5-5.1); Sodium 148 mmol/L (136-145)
[2019-07-20 05:37] LABS: ALT (SGPT) 7 U/L (8-55); AST (SGOT) 18 U/L (5-34); Albumin 1.4 g/dL (3.4-4.8); Alkaline Phosphatase 78 U/L (40-110); BUN (Urea Nitrogen) 42 mg/dL (9.8-20.1); Bilirubin, Total 0.2 mg/dL (0.2-1.2); Calc. Creatinine Clearance 27 mL/min (70-130); Calcium 7.1 mg/dL (7.8-10.44); Estimated GFR-MDRD 46; Globulin 2.8 g/dL (2.4-3.5); Glucose 311 mg/dL (83-110); Protein, Total 4.2 g/dL (6.0-8.3)
[2019-07-20] MEDS: Meropenem 500 MG in Sodium Chloride 0.9% 100 ML IVPB SCH ×2 (08:25→19:57)
[2019-07-20] MEDS: Senokot S 8.6-50 MG TAB PO SCH ×2 (08:25→19:59)
[2019-07-20] MEDS: HYDROcodone/Acetaminophen 5/325 mg Tablet PO PRN (08:25)
[2019-07-20] MEDS: Famotidine 20 MG TAB PO SCH (19:59)
[2019-07-21] MEDS: Sodium Bicarbonate 150 MEQ in Dextrose 5% in Water 1,000 ML IV SCH ×2 (03:01→16:28)
--- NOTE | 2019-07-21 07:25 | PDOC.HOSPP ---
- Subjective Encounter Date: 07/20/19 Encounter Time: 13:00 Subjective: Ms. Mckeon was seen today in follow-up of acute kidney disease, and UTI. She does not have any complaints. - Objective Vital Signs & Weight: Vital Signs (12 hours) Temp Pulse Resp BP Pulse Ox 07/21/19 03:04 97.6 F 89 14 112/55 L 92 L 07/20/19 19:55 97.4 F L 103 H 16 116/57 L 95 Weight Admit Weight 103 lb Weight 105 lb 14.4 oz I&O: 07/20/19 07/21/19 07/22/19 06:59 06:59 06:59 Intake Total 3790 4060 Output Total 2 500 Balance 3788 3560 Result Diagrams: 07/20/19 04:10 07/20/19 04:10 Hospitalist ROS - Medication Medications: Active Medications Generic Name Dose Route Start Last Admin Trade Name Freq PRN Reason Stop Dose Admin Hydrocodone Bitart/Acetaminophen 1 tab 07/17/19 19:50 07/20/19 08:25 [place] 5/325 PO 1 tab Q4H PRN Administration Moderate Pain (4-6) Famotidine 20 mg 07/17/19 21:00 07/20/19 19:59 Pepcid PO Not Given QPM MARGOTH Fentanyl 25 mcg 07/17/19 20:00 07/20/19 21:08 Duragesic TD 25 mcg Q3D MARGOTH Administration Sodium Bicarbonate 150 meq/ 1,150 mls @ 150 mls/hr 07/17/19 14:30 07/21/19 03 :01 Dextrose/Water IV 1,150 mls .Q7H40M MARGOTH Administration Meropenem 500 mg/ Sodium 100 mls @ 200 mls/hr 07/17/19 21:00 07/20/19 19:57 Chloride IVPB 100 mls Q12HR MARGOTH Administration Ondansetron HCl 4 mg 07/17/19 17:07 07/18/19 12:30 Zofran IVP 4 mg Q6H PRN Administration Nausea/Vomiting Senna/Docusate Sodium 1 tab 07/17/19 21:00 07/20/19 19:59 Senokot S PO Not Given BID MARGOTH Sodium Chloride 10 ml 07/17/19 17:07 07/19/19 08:47 Flush - Normal Saline IVF 10 ml PRN PRN Administration Saline Flush - Exam Eye: PERRL Heart: RRR, no murmur, no gallops, no rubs, normal peripheral pulses Respiratory: CTAB, no wheezes, no rales, no ronchi, normal chest expansion, no tachypnea Gastrointestinal: soft, non-tender, non-distended, normal bowel sounds, no palpable masses, no hepatomegaly Extremities: no cyanosis Hosp A/P (1) UTI (urinary tract infection) Status: Acute (2) Hhvof-jw-osdmofn kidney injury Code(s): N17.9 - ACUTE KIDNEY FAILURE, UNSPECIFIED; N18.9 - CHRONIC KIDNEY DISEASE, UNSPECIFIED Status: Acute (3) Hypertension Code(s): I10 - ESSENTIAL (PRIMARY) HYPERTENSION Status: Chronic - Plan * UTI and acute on chronic kidney injury- improved * She has decided to go home with hospice * Awaiting on Hospice Arrangements
[2019-07-21] MEDS: Senokot S 8.6-50 MG TAB PO SCH (09:19)
[2019-07-21] MEDS: Meropenem 500 MG in Sodium Chloride 0.9% 100 ML IVPB SCH (09:27)
[2019-07-21] MEDS: HYDROcodone/Acetaminophen 5/325 mg Tablet PO PRN (09:35)
[2019-07-21 10:30] VITALS: TEMP 97.9
[2019-07-21 13:44] VITALS: BMI 15.6
--- NOTE | 2019-07-21 16:10 | PDOC.HOSPP ---
- Subjective Encounter Date: 07/21/19 Encounter Time: 16:08 Subjective: Ms. Mckeon was seen today in follow-up of [place], and UTI. She does not have any complaints. - Objective Vital Signs & Weight: Vital Signs (12 hours) Temp Pulse Pulse Resp BP BP Pulse Ox 07/21/19 12:00 70 16 113/60 97 07/21/19 11:37 107 H 113/61 07/21/19 09:20 97.9 F 103 H 14 103/53 L 96 07/21/19 08:00 96 Weight Admit Weight 103 lb Weight 105 lb 14.4 oz I&O: 07/20/19 07/21/19 07/22/19 06:59 06:59 06:59 Intake Total 3790 4060 Output Total 2 500 Balance 3788 3560 Result Diagrams: 07/20/19 04:10 07/20/19 04:10 Hospitalist ROS - Medication Medications: Active Medications Generic Name Dose Route Start Last Admin Trade Name Freq PRN Reason Stop Dose Admin Hydrocodone Bitart/Acetaminophen 1 tab 07/17/19 19:50 07/21/19 09:35 [place] 5/325 PO 1 tab Q4H PRN Administration Moderate Pain (4-6) Famotidine 20 mg 07/17/19 21:00 07/20/19 19:59 Pepcid PO Not Given QPM MARGOTH Fentanyl 25 mcg 07/17/19 20:00 07/20/19 21:08 Duragesic TD 25 mcg Q3D MARGOTH Administration Sodium Bicarbonate 150 meq/ 1,150 mls @ 150 mls/hr 07/17/19 14:30 07/21/19 03 :01 Dextrose/Water IV 1,150 mls .Q7H40M MARGOTH Administration Meropenem 500 mg/ Sodium 100 mls @ 200 mls/hr 07/17/19 21:00 07/21/19 09:27 Chloride IVPB 100 mls Q12HR MARGOTH Administration Ondansetron HCl 4 mg 07/17/19 17:07 07/18/19 12:30 Zofran IVP 4 mg Q6H PRN Administration Nausea/Vomiting Senna/Docusate Sodium 1 tab 07/17/19 21:00 07/21/19 09:19 Senokot S PO Not Given BID MARGOTH Sodium Chloride 10 ml 07/17/19 17:07 07/19/19 08:47 Flush - Normal Saline IVF 10 ml PRN PRN Administration Saline Flush - Exam Eye: PERRL Heart: RRR, no murmur, no gallops, no rubs, normal peripheral pulses Respiratory: CTAB, no wheezes, no rales, no ronchi, normal chest expansion, no tachypnea, normal percussion Gastrointestinal: soft, non-tender, non-distended, normal bowel sounds, no palpable masses, no hepatomegaly Extremities: 1+ LE edema (chronic venousstasis changes) Hosp A/P (1) UTI (urinary tract infection) Status: Acute (2) Xbvrg-uu-woxhkzp kidney injury Code(s): N17.9 - ACUTE KIDNEY FAILURE, UNSPECIFIED; N18.9 - CHRONIC KIDNEY DISEASE, UNSPECIFIED Status: Acute (3) Hypertension Code(s): I10 - ESSENTIAL (PRIMARY) HYPERTENSION Status: Chronic - Plan * UTI and acute on chronic kidney injury- improved * Continue Meropenem until discharged * She has decided to go home with hospice * Awaiting on Hospice Arrangements
--- NOTE | 2019-07-21 16:38 | PQF ---
ARCHANA ELLIS TONI MD [id number] CLINICAL DOCUMENTATION IMPROVEMENT CLARIFICATION FORM: ICD-10 Updated PLEASE DO AN ADDENDUM TO THE PROGRESS NOTE WITH ANY DOCUMENTATION UPDATES OR ADDITIONS AND CARRY THROUGH TO DC SUMMARY. THANK YOU. DATE:07/21/2019 ATTN: DR. Shekhar CHAUDHRY Please exercise your independent, professional judgment in responding to the clarification form. Clinical indicators are provided on the bottom of this form for your review. Please check appropriate box(es): [ X] Sepsis present on admission [ ] Sepsis NOT present on admission [ ] Unable to determine [ X ] Sepsis Due to: UTI [ ] SIRS due to non-infectious process (please specify etiology) [ ] with organ dysfunction [ ] without organ dysfunction [ ] Localized infection without sepsis [ ] Other diagnosis [ ] Unable to determine For continuity of documentation, please document condition throughout progress notes and discharge summary. Thank You. CLINICAL INDICATORS - SIGNS / SYMPTOMS / LABS / RESULTS AND LOCATION IN MR LACTIC ACID 2.6 > 2.5 > 4.2 > 5.1 WBC 15.8 07/16 ED REPORT: PRESENTS WITH LETHARGY, LT SIDE BREAST CANCER, LARGE MASS ON L SIDE, BANDAGED UPON ARRIVAL. FOUL ODOR FROM MASS. ED PHYSICIAN FINAL DX: SEPSIS, [place], METASTATIC BREAST CA, HYPERKALEMIA. 07/16 ( URINE CULTURE) ESCHERICHIA COLI, ENTEROBACTER CLOACAE COMPLEX 07/18 PN (ISIDORO) PT SEEN IN FOLLOW UP FOR UTI WITH SEPSIS RISK: LARGE NEGLECTED LEFT BREAST MASS,RECENT PROGRESSION OF IMMUNOTHERAPY (JUDITH/ CONSULT) 07/17 UTI (PN/ISIDORO) 07/18 TREATMENTS: ID CONSULT ( 07/17) SERIAL LABS (07/16- 07/19) MEROPENEM IV ( 07/16 - PRESENT) THANK YOU! KATIE (This form is maintained as a part of the permanent medical record) 2014 [employer]. All Rights Reserved RADHA [email or web address]
[2019-07-21 17:45] VITALS: BP 105/57
--- NOTE | 2019-07-23 15:18 | EKG ---
Test Reason : Blood Pressure : / mmHG Vent. Rate : 107 BPM Atrial Rate : 107 BPM P-R Int : 122 ms QRS Dur : 062 ms QT Int : 294 ms P-R-T Axes : 000 142 141 degrees QTc Int : 392 ms Suspect arm lead reversal, interpretation assumes no reversal Sinus tachycardia Low voltage QRS Septal infarct , age undetermined Lateral infarct , age undetermined T wave abnormality, consider anterior ischemia No STEMI Abnormal ECG Confirmed by SUMLA WILL M.D. ([id number]), international editorial producer JULIEN SOTO ([id number]) on 07/23/2019 3:17:41 PM Referred By: Confirmed By:SULMA WILL M.D.
== END 2019-07-21 18:19 | disposition hospice, home (50) | DRG 871 ==
LOC: ERS 10:46 → 2NO 14:37
PROVIDERS: ADMIT Internal Medicine; ATTEND Internal Medicine
DX: A41.9 Sepsis, unspecified organism (principal); G92 Toxic encephalopathy; E43 Unspecified severe protein-calorie malnutrition; N17.9 Acute kidney failure, unspecified; E87.2 Acidosis; N39.0 Urinary tract infection, site not specified; R64 Cachexia; Z68.1 Body mass index [BMI] 19.9 or less, adult; Z51.5 Encounter for palliative care; E78.5 Hyperlipidemia, unspecified; E55.9 Vitamin D deficiency, unspecified; M81.0 Age-related osteoporosis without current pathological fracture; I12.9 Hypertensive chronic kidney disease with stage 1 through stage 4 chronic kidney disease, or unspecified chronic kidney disease; N18.3 Chronic kidney disease, stage 3 (moderate); F17.210 Nicotine dependence, cigarettes, uncomplicated; C50.912 Malignant neoplasm of unspecified site of left female breast; G89.4 Chronic pain syndrome; D53.9 Nutritional anemia, unspecified; E16.2 Hypoglycemia, unspecified; E87.5 Hyperkalemia; K21.9 Gastro-esophageal reflux disease without esophagitis; J45.20 Mild intermittent asthma, uncomplicated; J44.9 Chronic obstructive pulmonary disease, unspecified; Z17.1 Estrogen receptor negative status [ER-]; Z86.718 Personal history of other venous thrombosis and embolism; Z90.49 Acquired absence of other specified parts of digestive tract
CPT/HCPCS: 36415; 36416; 51701; 70450; 71045; 76770; 80053; 81003; 81015; 82274; 83605; 83735; 84100; 84484; 85025; 85610; 85730; 86140; 86850; 86900; 86901; 87040; 87077; 87086; 87186; 93005; 94760; 96361; 96365; 96375; 96376; 99292; A4353; J0692; J1815; J2185; J2270; J2405; J3370; J3490; J7030; J7070